=== PATIENT | male | born 1950 | race Caucasian/White ===

== ENCOUNTER 2023-03-07 12:58 | Outpatient (CLI) | payer BC, MEDICARE | END 2023-03-07 12:59 | disposition home or self-care (01) | LOC: SCSRAD 12:58 | PROVIDERS: ATTEND Family Medicine | DX: M54.50 Low back pain, unspecified (principal); M47.816 Spondylosis without myelopathy or radiculopathy, lumbar region | CPT/HCPCS: 72100 ==

== ENCOUNTER 2023-04-28 14:56 | Inpatient (IN) | payer BC, MEDICARE ==
[~2023-04-28 14:56] MED LIST: Iopamidol-370 76% 500 ML MDV (1 ML CHARGE) ONE
[2023-04-28] MEDS ORDERED: Adenosine 6 MG/2 ML VIAL ONE ×2 (15:16→15:24)
[2023-04-28] MEDS ORDERED: Esmolol 2,500 MG/250 ML 250 ML ONE (15:28)
[2023-04-28 15:32] LABS: #Monocytes 0.4 thou/uL (0.11-0.59); %Basophils 0.4 % (0.0-1.0); %Eosinophils 0.7 % (0.0-10.0); %Lymphocytes 12.6 % (21.0-51.0); %Monocytes 14.4 % (0.0-10.0); %Neutrophils 71.2 % (42.0-75.0); Hemoglobin 8.8 g/dL (14.0-18.0); Mean Corpuscular HGB CONC 34.1 g/dL (32.0-36.0); Mean Corpuscular Hemoglobin 34.5 pg (27.0-31.0); Mean Corpuscular Volume 101.2 fl (78.0-98.0); Mean Platelet Volume 10.7 fL (7.4-10.4); Platelet Count 156 10x3/uL (130-400); RBC Distribution Width 14.3 % (11.5-14.5); Red Blood Cell (RBC) Count 2.55 mill/uL (4.70-6.10); White Blood Cell (WBC) Count 2.8 10x3/uL (4.8-10.8)
[2023-04-28 15:54] LABS: ALT (SGPT) 10 U/L (8-55); AST (SGOT) 19 U/L (5-34); Albumin 2.6 g/dL (3.4-4.8); Alkaline Phosphatase 58 U/L (40-110); Anion Gap 10 mmol/L (10-20); BUN (Urea Nitrogen) 24 mg/dL (8.4-25.7); Bilirubin, Total 0.4 mg/dL (0.2-1.2); Calc. Creatinine Clearance 0 mL/min (70-130); Calcium 10.8 mg/dL (7.8-10.44); Carbon Dioxide 21 mmol/L (23-31); Chloride 107 mmol/L (98-107); Estimated GFR 53; Globulin 9.1 g/dL (2.4-3.5); Glucose 107 mg/dL (83-110); Lipase 27 U/L (8-78); Potassium 3.2 mmol/L (3.5-5.1); Protein, Total 11.7 g/dL (5.8-8.1); Sodium 135 mmol/L (136-145)
[2023-04-28] MEDS ORDERED: fentaNYL 50 mcg/mL 1 mL Vial ONE (16:05)
[2023-04-28] MEDS ORDERED: Amiodarone 150 MG/3 ML VIAL ONE (17:03)
[2023-04-28] MEDS ORDERED: Magnesium 2 GM/50 ML BAG (IN WATER) ONE (17:15)
[2023-04-28] MEDS ORDERED: Potassium Chloride 20 MEQ TAB ONE (17:15)
[2023-04-28] MEDS ORDERED: Magnesium 2 GM/50 ML(in water) 2 GM in Premix Bag 1 BAG IVPB SCH ×2 (18:15→20:15)
[2023-04-28] MEDS ORDERED: Electrolyte Replacement Protocol 1 EACH FS ONE (20:03)
[2023-04-28 20:13] LABS: Troponin I 0.011 ng/mL (< 0.028)
[2023-04-28] MEDS ORDERED: Electrolyte Replacement Protocol FS PRN (20:15)
[2023-04-28] MEDS: Famotidine 20 MG TAB PO SCH (20:32)
[2023-04-28] MEDS: Potassium Chloride 20 MEQ in Premix Bag 1 BAG IVPB SCH ×2 (21:54→23:15)
[2023-04-28 22:24] LABS: Bacteria/HPF None Seen HPF (None Seen); Bilirubin Negative (Negative); Blood, Urine Negative (Negative); Clarity Clear (Clear); Glucose, Urine (Dipstick) Normal (Negative); Ketone, Urine Negative (Negative); Leukocyte Negative Leu/uL (Negative); Nitrite Negative (Negative); Protein, Urine (Dipstick) 70 mg/dL (Neg-Trace); RBC/HPF 0-3 HPF (0-3); Specific Gravity, Urine 1.038 (1.002-1.036); Squamous Epithelial None Seen HPF (0-3); Urobilinogen Normal mg/dL (Less than 2); WBC/HPF 0-3 HPF (0-3); pH, Urine 5.5 (5.0-9.0)
[2023-04-28] MEDS: Acetaminophen 325 MG TAB PO PRN (23:15)
[2023-04-28 23:27] LABS: Creatinine, Urine 82.73 mg/dL (63-166)
[2023-04-29] MEDS: Amiodarone 450 MG, Admixture Fee 1 EACH in Dextrose 5% in Water 250 ML IVPB SCH ×2 (02:38→16:49)
[2023-04-29 04:52] LABS: ALT (SGPT) 10 U/L (8-55); AST (SGOT) 20 U/L (5-34); Albumin 2.4 g/dL (3.4-4.8); Alkaline Phosphatase 51 U/L (40-110); Anion Gap 10 mmol/L (10-20); BUN (Urea Nitrogen) 25 mg/dL (8.4-25.7); Bilirubin, Total 0.3 mg/dL (0.2-1.2); Calc. Creatinine Clearance 67 mL/min (70-130); Calcium 10.2 mg/dL (7.8-10.44); Carbon Dioxide 18 mmol/L (23-31); Chloride 110 mmol/L (98-107); Estimated GFR 57; Globulin 8.4 g/dL (2.4-3.5); Glucose 90 mg/dL (83-110); Iron 58 ug/dL (65-175); Iron Binding Capacity, Total 195 mcg/dL (261-462); Potassium 3.7 mmol/L (3.5-5.1); Protein, Total 10.8 g/dL (5.8-8.1); Sodium 134 mmol/L (136-145)
[2023-04-29 04:53] LABS: Iron 55 ug/dL (65-175); Iron Binding Capacity, Total 203 mcg/dL (261-462); Magnesium 1.8 mg/dL (1.6-2.6)
[2023-04-29] MEDS: Furosemide 20 MG/2 ML VIAL SLOW IVP SCH ×2 (06:05→14:40)
[2023-04-29] MEDS ORDERED: Magnesium 2 GM/50 ML(in water) 2 GM in Premix Bag 1 BAG IVPB SCH (08:00)
[2023-04-29] MEDS: Famotidine 20 MG TAB PO SCH ×2 (08:07→21:58)
[2023-04-29] MEDS: Potassium Chloride 20 MEQ TAB PO SCH ×2 (08:07→16:49)
[2023-04-29] MEDS ORDERED: Amlodipine 10 MG TAB PO SCH (09:00)
[2023-04-29 09:50] LABS: Magnesium 1.9 mg/dL (1.6-2.6)
[2023-04-29] MEDS ORDERED: Furosemide 20 MG/2 ML VIAL SLOW IVP SCH (10:00)
[2023-04-29] MEDS ORDERED: Empagliflozin 10 MG TAB PO SCH (10:00)
[2023-04-29] MEDS: Calcium Carbonate 600 MG TAB PO SCH ×2 (10:27→21:58)
[2023-04-29] MEDS: Acetaminophen 325 MG TAB PO PRN ×2 (18:05→22:07)
[2023-04-29] MEDS ORDERED: Non-Formulary Item 1 EACH (Mirabegron [Myrbetriq] 50 MG Tab.Er.24h) PO SCH (21:00)
[2023-04-29] MEDS ORDERED: Tamsulosin HCl 0.4 MG CAP PO SCH (21:00)
[2023-04-29] MEDS: Melatonin 3 MG TAB PO PRN (21:58)
[2023-04-29] MEDS: Tamsulosin HCl 0.4 MG CAP PO SCH (21:58)
[2023-04-30] MEDS ORDERED: Morphine 2 MG/ML VIAL SLOW IVP SCH (03:45)
[2023-04-30] MEDS: Simethicone Chewable 80 MG TAB PO PRN (03:45)
[2023-04-30] MEDS ORDERED: Furosemide 20 MG/2 ML VIAL SLOW IVP SCH ×2 (03:45→10:00)
[2023-04-30] MEDS: Furosemide 20 MG/2 ML VIAL SLOW IVP SCH ×2 (05:02→14:51)
[2023-04-30 06:59] LABS: #Monocytes 0.4 thou/uL (0.11-0.59); #Neutrophils 2.2 thou/uL (1.40-6.50); %Basophils 0.3 % (0.0-1.0); %Eosinophils 0.7 % (0.0-10.0); %Lymphocytes 10.8 % (21.0-51.0); %Monocytes 12.6 % (0.0-10.0); %Neutrophils 75.6 % (42.0-75.0); Hemoglobin 8.6 g/dL (14.0-18.0); Mean Corpuscular HGB CONC 32.8 g/dL (32.0-36.0); Mean Corpuscular Hemoglobin 34.8 pg (27.0-31.0); Mean Corpuscular Volume 106.1 fl (78.0-98.0); Mean Platelet Volume 10.6 fL (7.4-10.4); Platelet Count 135 10x3/uL (130-400); RBC Distribution Width 14.6 % (11.5-14.5); Red Blood Cell (RBC) Count 2.47 mill/uL (4.70-6.10); White Blood Cell (WBC) Count 2.9 10x3/uL (4.8-10.8)
[2023-04-30 07:26] LABS: Anion Gap 10 mmol/L (10-20); BUN (Urea Nitrogen) 25 mg/dL (8.4-25.7); Calc. Creatinine Clearance 61 mL/min (70-130); Calcium 10.4 mg/dL (7.8-10.44); Carbon Dioxide 20 mmol/L (23-31); Chloride 110 mmol/L (98-107); Estimated GFR 52; Glucose 100 mg/dL (83-110); Potassium 3.7 mmol/L (3.5-5.1); Sodium 136 mmol/L (136-145)
[2023-04-30] MEDS: Empagliflozin 10 MG TAB PO SCH (08:50)
[2023-04-30] MEDS: Calcium Carbonate 600 MG TAB PO SCH ×2 (08:50→20:01)
[2023-04-30] MEDS: Famotidine 20 MG TAB PO SCH ×2 (08:50→20:02)
[2023-04-30] MEDS: Potassium Chloride 20 MEQ TAB PO SCH ×2 (08:50→17:17)
[2023-04-30] MEDS: Amiodarone 450 MG, Admixture Fee 1 EACH in Dextrose 5% in Water 250 ML IVPB SCH ×2 (09:36→23:18)
[2023-04-30] MEDS ORDERED: Potassium Chloride 20 MEQ TAB PO SCH (12:00)
[2023-04-30] MEDS: Docusate 100 MG CAP PO PRN (17:17)
[2023-04-30] MEDS ORDERED: Furosemide 40 MG/4 ML VIAL SLOW IVP SCH (20:00)
[2023-04-30] MEDS: Tamsulosin HCl 0.4 MG CAP PO SCH (20:02)
[2023-05-01] MEDS: Furosemide 20 MG/2 ML VIAL SLOW IVP SCH ×2 (05:55→13:08)
[2023-05-01 07:43] LABS: Anion Gap 10 mmol/L (10-20); BUN (Urea Nitrogen) 18 mg/dL (8.4-25.7); Calc. Creatinine Clearance 69 mL/min (70-130); Calcium 10.5 mg/dL (7.8-10.44); Carbon Dioxide 23 mmol/L (23-31); Chloride 107 mmol/L (98-107); Estimated GFR 62; Glucose 79 mg/dL (83-110); Potassium 3.5 mmol/L (3.5-5.1); Sodium 136 mmol/L (136-145)
[2023-05-01] MEDS ORDERED: Potassium Chloride 20 MEQ TAB PO SCH (08:00)
[2023-05-01] MEDS: Potassium Chloride 20 MEQ TAB PO SCH ×2 (08:30→17:22)
[2023-05-01] MEDS ORDERED: Digoxin 0.5 MG/2 ML AMP SLOW IVP SCH ×2 (08:30→13:00)
[2023-05-01] MEDS: Calcium Carbonate 600 MG TAB PO SCH ×2 (08:30→21:07)
[2023-05-01] MEDS: Famotidine 20 MG TAB PO SCH ×2 (08:31→21:07)
[2023-05-01] MEDS: Empagliflozin 10 MG TAB PO SCH (08:31)
[2023-05-01] MEDS: Docusate 100 MG CAP PO PRN (11:02)
[2023-05-01] MEDS ORDERED: Metoprolol Tartrate 5 MG/5 ML VIAL ONE (11:36)
[2023-05-01] MEDS ORDERED: Metoprolol Tartrate 5 MG/5 ML VIAL IVP SCH (11:45)
[2023-05-01] MEDS: Amiodarone 450 MG, Admixture Fee 1 EACH in Dextrose 5% in Water 250 ML IVPB SCH (13:08)
[2023-05-01] MEDS ORDERED: dilTIAZem 25 MG/5 ML VIAL SLOW IVP SCH (14:15)
[2023-05-01] MEDS: dilTIAZem 125 MG in Sodium Chloride 0.9% 100 ML IVPB SCH (14:24)
[2023-05-01] MEDS: Tamsulosin HCl 0.4 MG CAP PO SCH (21:07)
[2023-05-02] MEDS: dilTIAZem 125 MG in Sodium Chloride 0.9% 100 ML IVPB SCH ×3 (01:01→22:52)
[2023-05-02 04:29] LABS: Anion Gap 11 mmol/L (10-20); BUN (Urea Nitrogen) 17 mg/dL (8.4-25.7); Calc. Creatinine Clearance 73 mL/min (70-130); Calcium 11.2 mg/dL (7.8-10.44); Carbon Dioxide 23 mmol/L (23-31); Chloride 107 mmol/L (98-107); Estimated GFR 66; Glucose 99 mg/dL (83-110); Potassium 3.5 mmol/L (3.5-5.1); Sodium 137 mmol/L (136-145)
[2023-05-02] MEDS: Furosemide 20 MG/2 ML VIAL SLOW IVP SCH ×2 (05:18→13:27)
[2023-05-02] MEDS: Amiodarone 450 MG, Admixture Fee 1 EACH in Dextrose 5% in Water 250 ML IVPB SCH ×2 (05:18→15:54)
[2023-05-02] MEDS: Empagliflozin 10 MG TAB PO SCH (07:39)
[2023-05-02] MEDS: Famotidine 20 MG TAB PO SCH ×2 (07:39→21:16)
[2023-05-02] MEDS: Potassium Chloride 20 MEQ TAB PO SCH ×2 (07:39→18:14)
[2023-05-02] MEDS: Calcium Carbonate 600 MG TAB PO SCH ×2 (07:41→21:15)
[2023-05-02] MEDS: Spironolactone 25 MG TAB PO SCH (09:38)
[2023-05-02] MEDS ORDERED: Potassium Chloride 20 MEQ TAB PO SCH (12:00)
[2023-05-02] MEDS: Tamsulosin HCl 0.4 MG CAP PO SCH (21:15)
[2023-05-03 04:38] LABS: Anion Gap 10 mmol/L (10-20); BUN (Urea Nitrogen) 21 mg/dL (8.4-25.7); Calc. Creatinine Clearance 62 mL/min (70-130); Calcium 11.6 mg/dL (7.8-10.44); Carbon Dioxide 22 mmol/L (23-31); Chloride 108 mmol/L (98-107); Estimated GFR 54; Glucose 97 mg/dL (83-110); Potassium 3.8 mmol/L (3.5-5.1); Sodium 136 mmol/L (136-145)
[2023-05-03] MEDS: Furosemide 20 MG/2 ML VIAL SLOW IVP SCH ×2 (05:39→13:45)
[2023-05-03] MEDS: Famotidine 20 MG TAB PO SCH ×2 (08:26→20:15)
[2023-05-03] MEDS: Calcium Carbonate 600 MG TAB PO SCH ×2 (08:26→20:15)
[2023-05-03] MEDS: Spironolactone 25 MG TAB PO SCH (08:26)
[2023-05-03] MEDS: dilTIAZem 125 MG in Sodium Chloride 0.9% 100 ML IVPB SCH ×2 (08:26→23:04)
[2023-05-03] MEDS: Potassium Chloride 20 MEQ TAB PO SCH ×2 (08:26→16:41)
[2023-05-03] MEDS: Empagliflozin 10 MG TAB PO SCH (10:52)
[2023-05-03] MEDS: Amiodarone 450 MG, Admixture Fee 1 EACH in Dextrose 5% in Water 250 ML IVPB SCH (12:20)
[2023-05-03] MEDS: Tamsulosin HCl 0.4 MG CAP PO SCH (20:15)
[2023-05-03] MEDS: Simethicone Chewable 80 MG TAB PO PRN (23:07)
[2023-05-04] MEDS: Amiodarone 450 MG, Admixture Fee 1 EACH in Dextrose 5% in Water 250 ML IVPB SCH ×2 (04:11→22:06)
[2023-05-04 04:48] LABS: Anion Gap 11 mmol/L (10-20); BUN (Urea Nitrogen) 21 mg/dL (8.4-25.7); Calc. Creatinine Clearance 57 mL/min (70-130); Carbon Dioxide 22 mmol/L (23-31); Chloride 106 mmol/L (98-107); Estimated GFR 49; Glucose 96 mg/dL (83-110); Potassium 3.6 mmol/L (3.5-5.1); Sodium 135 mmol/L (136-145)
[2023-05-04] MEDS: Furosemide 20 MG/2 ML VIAL SLOW IVP SCH (05:50)
[2023-05-04] MEDS: Potassium Chloride 20 MEQ TAB PO SCH ×2 (08:31→17:39)
[2023-05-04] MEDS: Famotidine 20 MG TAB PO SCH ×2 (08:31→22:14)
[2023-05-04] MEDS: Spironolactone 25 MG TAB PO SCH (08:32)
[2023-05-04] MEDS: Empagliflozin 10 MG TAB PO SCH (08:32)
[2023-05-04] MEDS: Calcium Carbonate 600 MG TAB PO SCH ×2 (08:32→22:14)
[2023-05-04] MEDS: dilTIAZem 125 MG in Sodium Chloride 0.9% 100 ML IVPB SCH (13:04)
[2023-05-04] MEDS: Tamsulosin HCl 0.4 MG CAP PO SCH (22:14)
[2023-05-05] MEDS: dilTIAZem 125 MG in Sodium Chloride 0.9% 100 ML IVPB SCH (05:22)
[2023-05-05] MEDS: Furosemide 20 MG/2 ML VIAL SLOW IVP SCH ×2 (05:30→11:03)
[2023-05-05 05:58] LABS: Anion Gap 10 mmol/L (10-20); BUN (Urea Nitrogen) 21 mg/dL (8.4-25.7); Calc. Creatinine Clearance 51 mL/min (70-130); Carbon Dioxide 22 mmol/L (23-31); Chloride 107 mmol/L (98-107); Estimated GFR 46; Glucose 93 mg/dL (83-110); Potassium 3.8 mmol/L (3.5-5.1); Sodium 135 mmol/L (136-145)
[2023-05-05 06:08] LABS: Calcium 13.2 mg/dL (7.8-10.44)
[2023-05-05] MEDS: Famotidine 20 MG TAB PO SCH (09:51)
[2023-05-05] MEDS: Potassium Chloride 20 MEQ TAB PO SCH ×2 (09:51→16:15)
[2023-05-05] MEDS: Empagliflozin 10 MG TAB PO SCH (09:51)
[2023-05-05] MEDS: Spironolactone 25 MG TAB PO SCH ×2 (09:52→11:16)
[2023-05-05] MEDS ORDERED: Folic Acid 1 MG TAB PO SCH (10:45)
[2023-05-05] MEDS ORDERED: Amlodipine 5 MG TAB PO SCH (10:45)
[2023-05-05 13:34] LABS: Anion Gap 10 mmol/L (10-20); BUN (Urea Nitrogen) 24 mg/dL (8.4-25.7); Calc. Creatinine Clearance 44 mL/min (70-130); Carbon Dioxide 23 mmol/L (23-31); Chloride 104 mmol/L (98-107); Estimated GFR 38; Glucose 99 mg/dL (83-110); Potassium 3.7 mmol/L (3.5-5.1); Sodium 133 mmol/L (136-145)
[2023-05-05 13:46] LABS: Calcium 13.4 mg/dL (7.8-10.44)
[2023-05-05] MEDS ORDERED: Sodium Chloride 0.9% 1,000 ML IV SCH (15:30)
[2023-05-05] MEDS ORDERED: Calcitonin,Salmon,Synthetic 400 UNITS/2 ML SC SCH (15:30)
[2023-05-05] MEDS: Amiodarone 200 MG TAB PO SCH ×2 (16:15→20:46)
[2023-05-05] MEDS ORDERED: Zoledronic Acid 4 MG in Sodium Chloride 0.9% 100 ML IVPB SCH (16:15)
[2023-05-05] MEDS: Amiodarone 450 MG, Admixture Fee 1 EACH in Dextrose 5% in Water 250 ML IVPB SCH (17:37)
[2023-05-05] MEDS: Tamsulosin HCl 0.4 MG CAP PO SCH (20:46)
[2023-05-06] MEDS: Furosemide 20 MG/2 ML VIAL SLOW IVP SCH ×2 (05:36→10:28)
[2023-05-06 06:37] LABS: #Monocytes 0.4 thou/uL (0.11-0.59); %Basophils 0.8 % (0.0-1.0); %Eosinophils 0.8 % (0.0-10.0); %Lymphocytes 4.8 % (21.0-51.0); %Monocytes 8.1 % (0.0-10.0); %Neutrophils 83.2 % (42.0-75.0); Hemoglobin 10.7 g/dL (14.0-18.0); Mean Corpuscular HGB CONC 33.1 g/dL (32.0-36.0); Mean Corpuscular Hemoglobin 34.2 pg (27.0-31.0); Mean Corpuscular Volume 103.2 fl (78.0-98.0); Mean Platelet Volume 10.7 fL (7.4-10.4); Platelet Count 175 10x3/uL (130-400); RBC Distribution Width 14.1 % (11.5-14.5); Red Blood Cell (RBC) Count 3.13 mill/uL (4.70-6.10); White Blood Cell (WBC) Count 4.8 10x3/uL (4.8-10.8)
[2023-05-06 07:01] LABS: Anion Gap 11 mmol/L (10-20); BUN (Urea Nitrogen) 26 mg/dL (8.4-25.7); Calc. Creatinine Clearance 46 mL/min (70-130); Calcium 12.8 mg/dL (7.8-10.44); Carbon Dioxide 20 mmol/L (23-31); Chloride 106 mmol/L (98-107); Estimated GFR 41; Glucose 88 mg/dL (83-110); Potassium 3.7 mmol/L (3.5-5.1); Sodium 133 mmol/L (136-145)
[2023-05-06] MEDS: Spironolactone 25 MG TAB PO SCH (08:02)
[2023-05-06] MEDS: Amlodipine 5 MG TAB PO SCH (08:02)
[2023-05-06] MEDS: Folic Acid 1 MG TAB PO SCH (08:02)
[2023-05-06] MEDS: Amiodarone 200 MG TAB PO SCH ×3 (08:02→20:17)
[2023-05-06] MEDS: Empagliflozin 10 MG TAB PO SCH (08:02)
[2023-05-06] MEDS: Potassium Chloride 20 MEQ TAB PO SCH ×2 (08:02→15:11)
[2023-05-06] MEDS: Famotidine 20 MG TAB PO SCH (08:03)
[2023-05-06] MEDS ORDERED: Sodium Chloride 0.9% 1,000 ML IV SCH (09:45)
[2023-05-06] MEDS ORDERED: Furosemide 40 MG/4 ML VIAL SLOW IVP SCH (10:15)
[2023-05-06] MEDS ORDERED: dilTIAZem 25 MG/5 ML VIAL SLOW IVP SCH (11:00)
[2023-05-06] MEDS ORDERED: dilTIAZem 125 MG in Sodium Chloride 0.9% 100 ML IVPB SCH ×3 (11:00→17:47)
[2023-05-06 11:14] LABS: Magnesium 1.5 mg/dL (1.6-2.6)
[2023-05-06] MEDS ORDERED: Magnesium 2 GM/50 ML(in water) 2 GM in Premix Bag 1 BAG IVPB SCH (11:30)
[2023-05-06] MEDS ORDERED: Potassium Chloride 20 MEQ TAB PO SCH (12:00)
[2023-05-06] MEDS ORDERED: Magnesium Sulfate In Water 4 GM in Premix Bag 1 BAG IVPB SCH (13:00)
[2023-05-06] MEDS: Tamsulosin HCl 0.4 MG CAP PO SCH (20:16)
[2023-05-07] MEDS: Amiodarone 450 MG, Admixture Fee 1 EACH in Dextrose 5% in Water 250 ML IVPB SCH ×2 (04:39→20:42)
[2023-05-07 05:57] LABS: Anion Gap 11 mmol/L (10-20); BUN (Urea Nitrogen) 37 mg/dL (8.4-25.7); Calc. Creatinine Clearance 39 mL/min (70-130); Carbon Dioxide 18 mmol/L (23-31); Chloride 106 mmol/L (98-107); Estimated GFR 33; Glucose 104 mg/dL (83-110); Magnesium 2.8 mg/dL (1.6-2.6); Potassium 3.5 mmol/L (3.5-5.1); Sodium 131 mmol/L (136-145)
[2023-05-07] MEDS: Furosemide 20 MG/2 ML VIAL SLOW IVP SCH (06:17)
[2023-05-07] MEDS: Folic Acid 1 MG TAB PO SCH (09:11)
[2023-05-07] MEDS: Amiodarone 200 MG TAB PO SCH ×3 (09:11→20:41)
[2023-05-07] MEDS: Potassium Chloride 20 MEQ TAB PO SCH ×2 (09:11→17:27)
[2023-05-07] MEDS: Spironolactone 25 MG TAB PO SCH (09:13)
[2023-05-07] MEDS: Famotidine 20 MG TAB PO SCH (09:13)
[2023-05-07] MEDS: Amlodipine 5 MG TAB PO SCH (09:13)
[2023-05-07] MEDS: Empagliflozin 10 MG TAB PO SCH (10:07)
[2023-05-07 18:45] LABS: SARS-CoV-2 NAA Rapid Test Not Detected (NotDetected)
[2023-05-07] MEDS: Tamsulosin HCl 0.4 MG CAP PO SCH (20:41)
[2023-05-07] MEDS: dilTIAZem 125 MG in Sodium Chloride 0.9% 100 ML IVPB SCH (23:48)
[2023-05-08 05:38] LABS: Anion Gap 8 mmol/L (10-20); BUN (Urea Nitrogen) 48 mg/dL (8.4-25.7); Calc. Creatinine Clearance 37 mL/min (70-130); Calcium 8.9 mg/dL (7.8-10.44); Carbon Dioxide 21 mmol/L (23-31); Chloride 110 mmol/L (98-107); Estimated GFR 31; Glucose 81 mg/dL (83-110); Potassium 3.7 mmol/L (3.5-5.1); Sodium 135 mmol/L (136-145)
[2023-05-08] MEDS: Famotidine 20 MG TAB PO SCH (08:07)
[2023-05-08] MEDS: Folic Acid 1 MG TAB PO SCH (08:08)
[2023-05-08] MEDS: Amiodarone 200 MG TAB PO SCH ×3 (08:08→20:52)
[2023-05-08] MEDS: Potassium Chloride 20 MEQ TAB PO SCH ×2 (08:10→17:56)
[2023-05-08] MEDS: Amlodipine 5 MG TAB PO SCH (08:10)
[2023-05-08] MEDS: Albumin 25% 25 GM/100 ML BOT IVPB SCH ×3 (08:20→20:52)
[2023-05-08] MEDS ORDERED: Apixaban 5 MG TAB PO SCH ×2 (09:44→10:00)
[2023-05-08] MEDS: Amiodarone 450 MG, Admixture Fee 1 EACH in Dextrose 5% in Water 250 ML IVPB SCH (11:05)
[2023-05-08] MEDS: Apixaban 5 MG TAB PO SCH (20:53)
[2023-05-08] MEDS: Tamsulosin HCl 0.4 MG CAP PO SCH (20:53)
[2023-05-09] MEDS: Albumin 25% 25 GM/100 ML BOT IVPB SCH (02:06)
[2023-05-09] MEDS: Melatonin 3 MG TAB PO PRN (02:06)
[2023-05-09] MEDS: Acetaminophen 325 MG TAB PO PRN (02:17)
[2023-05-09] MEDS: Amiodarone 450 MG, Admixture Fee 1 EACH in Dextrose 5% in Water 250 ML IVPB SCH (02:18)
[2023-05-09] MEDS: dilTIAZem 125 MG in Sodium Chloride 0.9% 100 ML IVPB SCH (02:18)
[2023-05-09 05:58] LABS: Anion Gap 10 mmol/L (10-20); BUN (Urea Nitrogen) 40 mg/dL (8.4-25.7); Calc. Creatinine Clearance 40 mL/min (70-130); Calcium 8.4 mg/dL (7.8-10.44); Carbon Dioxide 19 mmol/L (23-31); Chloride 111 mmol/L (98-107); Estimated GFR 34; Glucose 81 mg/dL (83-110); Magnesium 2.1 mg/dL (1.6-2.6); Potassium 3.6 mmol/L (3.5-5.1); Sodium 136 mmol/L (136-145)
[2023-05-09] MEDS: Potassium Chloride 20 MEQ TAB PO SCH ×2 (09:03→17:01)
[2023-05-09] MEDS: Amiodarone 200 MG TAB PO SCH ×3 (09:04→21:00)
[2023-05-09] MEDS: Amlodipine 5 MG TAB PO SCH (09:04)
[2023-05-09] MEDS: Folic Acid 1 MG TAB PO SCH (09:04)
[2023-05-09] MEDS: Famotidine 20 MG TAB PO SCH (09:04)
[2023-05-09] MEDS: Apixaban 5 MG TAB PO SCH (09:14)
[2023-05-09] MEDS ORDERED: Furosemide 40 MG/4 ML VIAL SLOW IVP SCH (12:00)
[2023-05-09] MEDS ORDERED: Potassium Chloride 20 MEQ TAB PO SCH (12:00)
[2023-05-09] MEDS: Simethicone Chewable 80 MG TAB PO PRN ×2 (12:05→21:50)
[2023-05-09] MEDS ORDERED: HYDROcodone/Acetaminophen 5/325 mg Tablet PO PRN (13:37)
[2023-05-09] MEDS ORDERED: Morphine 2 MG/ML VIAL SLOW IVP PRN (13:37)
[2023-05-09] MEDS ORDERED: Calcium Carbonate 500 MG ChewTAB PO SCH (13:45)
[2023-05-09 15:57] LABS: Bacteria/HPF None Seen HPF (None Seen); Bilirubin Negative (Negative); Blood, Urine 1+ (Negative); CAUTI Indications for Culture Pelvic or flank pain; Clarity Clear (Clear); Glucose, Urine (Dipstick) 70 mg/dL (Negative); Ketone, Urine Negative (Negative); Leukocyte Negative Leu/uL (Negative); Nitrite Negative (Negative); Protein, Urine (Dipstick) 50 mg/dL (Neg-Trace); RBC/HPF 0-3 HPF (0-3); Specific Gravity, Urine 1.011 (1.002-1.036); Squamous Epithelial 0-3 HPF (0-3); Urobilinogen Normal mg/dL (Less than 2); WBC/HPF 0-3 HPF (0-3); pH, Urine 5.5 (5.0-9.0)
[2023-05-09 15:58] LABS: Urine Culture Reflex No No
[2023-05-09] MEDS ORDERED: Bisacodyl 10 MG SUPP PR SCH ×2 (16:15→18:45)
[2023-05-09] MEDS: Lactated Ringer's 1,000 ML IV SCH (17:01)
[2023-05-09] MEDS ORDERED: Temazepam 15 MG CAP PO PRN (18:23)
[2023-05-09] MEDS: Tamsulosin HCl 0.4 MG CAP PO SCH (21:00)
[2023-05-09] MEDS ORDERED: Ondansetron ODT 4 MG TAB PO PRN (23:51)
[2023-05-10] MEDS: Ondansetron PF 4 MG/2 ML Vial IVP PRN (00:02)
[2023-05-10] MEDS: Lactated Ringer's 1,000 ML IV SCH ×2 (05:10→20:50)
[2023-05-10 05:51] LABS: Anion Gap 11 mmol/L (10-20); BUN (Urea Nitrogen) 32 mg/dL (8.4-25.7); Calc. Creatinine Clearance 36 mL/min (70-130); Calcium 8.6 mg/dL (7.8-10.44); Carbon Dioxide 18 mmol/L (23-31); Chloride 110 mmol/L (98-107); Estimated GFR 33; Glucose 126 mg/dL (83-110); Potassium 4.3 mmol/L (3.5-5.1); Sodium 135 mmol/L (136-145)
[2023-05-10] MEDS ORDERED: dilTIAZem 125 MG in Sodium Chloride 0.9% 100 ML IVPB SCH ×2 (08:45→10:59)
[2023-05-10] MEDS ORDERED: dilTIAZem 25 MG/5 ML VIAL SLOW IVP SCH (08:45)
[2023-05-10 09:40] LABS: Hemoglobin 9.2 g/dL (14.0-18.0); Mean Corpuscular Hemoglobin 34.2 pg (27.0-31.0); Mean Corpuscular Volume 103.7 fl (78.0-98.0); Mean Platelet Volume 10.7 fL (7.4-10.4); Platelet Count 211 10x3/uL (130-400); RBC Distribution Width 14.6 % (11.5-14.5); Red Blood Cell (RBC) Count 2.69 mill/uL (4.70-6.10); White Blood Cell (WBC) Count 5.7 10x3/uL (4.8-10.8)
[2023-05-10 09:47] LABS: Delete Auto Diff?? YES; Manual Diff?? YES
[2023-05-10] MEDS: Potassium Chloride 20 MEQ TAB PO SCH ×2 (10:11→17:13)
[2023-05-10] MEDS: Folic Acid 1 MG TAB PO SCH (10:12)
[2023-05-10] MEDS ORDERED: Amiodarone 450 MG in Dextrose 5% in Water 250 ML IVPB SCH (11:00)
[2023-05-10 11:04] LABS: Anisocytosis SLIGHT = 6-15 cells HPF (0-5); Band 41 % (5-11); CellaVision Operator ID LAB.GE; Eosinophils 1 % (0-10); Large Platelets 2.8 % (0-5); Macrocytosis SLIGHT = 6-15 cells HPF (0-5); Metamyelocyte 1 % (0-0); Monocytes 7 % (0-10); Neutrophil 46 % (42-75); Platelet Adequacy Comment Platelets Normal; Polychromasia SLIGHT = 2-3 cells HPF (0-2); Reactive Lymphocytes 4 % (0-10); Total Cell Count 109
[2023-05-10] MEDS ORDERED: dilTIAZem 125 MG, Admixture Fee 1 EACH in Sodium Chloride 0.9% 100 ML IVPB SCH (11:15)
[2023-05-10] MEDS ORDERED: Lactated Ringer's 250 ML IV SCH ×2 (11:45→14:00)
[2023-05-10] MEDS: Amiodarone 450 MG, Admixture Fee 1 EACH in Dextrose 5% in Water 250 ML IVPB SCH (12:01)
[2023-05-10] MEDS: Tamsulosin HCl 0.4 MG CAP PO SCH (20:50)
[2023-05-11] MEDS ORDERED: Sodium Chloride 0.9% 500 ML IV SCH ×5 (01:45→22:15)
[2023-05-11] MEDS ORDERED: Sodium Chloride 0.9% 250 ML IV SCH (03:15)
[2023-05-11 04:28] LABS: #Monocytes 0.7 thou/uL (0.11-0.59); #Neutrophils 4.2 thou/uL (1.40-6.50); %Basophils 0.2 % (0.0-1.0); %Lymphocytes 8.6 % (21.0-51.0); %Monocytes 12.6 % (0.0-10.0); %Neutrophils 77.3 % (42.0-75.0); Hemoglobin 9.8 g/dL (14.0-18.0); Mean Corpuscular Hemoglobin 34.5 pg (27.0-31.0); Mean Corpuscular Volume 101.4 fl (78.0-98.0); Platelet Count 208 10x3/uL (130-400); RBC Distribution Width 14.5 % (11.5-14.5); Red Blood Cell (RBC) Count 2.84 mill/uL (4.70-6.10); White Blood Cell (WBC) Count 5.5 10x3/uL (4.8-10.8)
[2023-05-11 05:08] LABS: Anion Gap 14 mmol/L (10-20); BUN (Urea Nitrogen) 48 mg/dL (8.4-25.7); Calc. Creatinine Clearance 23 mL/min (70-130); Calcium 7.8 mg/dL (7.8-10.44); Carbon Dioxide 24 mmol/L (23-31); Chloride 103 mmol/L (98-107); Estimated GFR 19; Glucose 118 mg/dL (83-110); Magnesium 1.8 mg/dL (1.6-2.6); Potassium 3.3 mmol/L (3.5-5.1); Sodium 138 mmol/L (136-145)
[2023-05-11] MEDS ORDERED: Magnesium 2 GM/50 ML(in water) 2 GM in Premix Bag 1 BAG IVPB SCH (08:00)
[2023-05-11] MEDS ORDERED: Potassium Chloride 20 MEQ in Premix Bag 1 BAG IVPB SCH (08:00)
[2023-05-11] MEDS: Folic Acid 1 MG TAB PO SCH (09:04)
[2023-05-11] MEDS: Potassium Chloride 20 MEQ TAB PO SCH ×2 (09:04→16:13)
[2023-05-11] MEDS ORDERED: MD-Gastroview 120 ML BOT ONE (10:49)
[2023-05-11] MEDS ORDERED: Pantoprazole 40 MG VIAL IVP SCH ×2 (13:00→21:00)
[2023-05-11] MEDS: Lactated Ringer's 1,000 ML IV SCH (13:43)
[2023-05-11] MEDS: Sodium Chloride 0.9% 1,000 ML IV SCH (13:44)
[2023-05-11] MEDS ORDERED: dilTIAZem 125 MG in Sodium Chloride 0.9% 100 ML IVPB SCH (16:15)
[2023-05-11] MEDS ORDERED: dilTIAZem 125 MG, Admixture Fee 1 EACH in Sodium Chloride 0.9% 100 ML IVPB SCH (16:30)
[2023-05-11] MEDS: Ondansetron PF 4 MG/2 ML Vial IVP PRN (20:50)
[2023-05-11] MEDS: Pantoprazole 40 MG VIAL IVP SCH (20:55)
[2023-05-11] MEDS: Amiodarone 450 MG, Admixture Fee 1 EACH in Dextrose 5% in Water 250 ML IVPB SCH (20:58)
[2023-05-11] MEDS: Tamsulosin HCl 0.4 MG CAP PO SCH ×2 (21:04→21:26)
[2023-05-11] MEDS ORDERED: Digoxin 0.5 MG/2 ML AMP SLOW IVP SCH ×2 (22:30→22:45)
[2023-05-11] MEDS ORDERED: Sodium Chloride 0.9% 300 ML IV SCH (22:45)
[2023-05-12] MEDS: Sodium Chloride 0.9% 1,000 ML IV SCH (03:35)
[2023-05-12] MEDS ORDERED: Phenol 118 ML BOT PO PRN (03:49)
[2023-05-12] MEDS ORDERED: Phenylephrine 40 MG in Sodium Chloride 0.9% 250 ML 250 ML IVPB SCH (04:30)
[2023-05-12 04:37] LABS: #Neutrophils 7.2 thou/uL (1.40-6.50); %Basophils 0.1 % (0.0-1.0); %Lymphocytes 5.8 % (21.0-51.0); %Monocytes 11.2 % (0.0-10.0); %Neutrophils 82.4 % (42.0-75.0); Hemoglobin 9.6 g/dL (14.0-18.0); Mean Corpuscular HGB CONC 33.6 g/dL (32.0-36.0); Mean Corpuscular Hemoglobin 33.6 pg (27.0-31.0); Platelet Count 237 10x3/uL (130-400); RBC Distribution Width 14.4 % (11.5-14.5); Red Blood Cell (RBC) Count 2.86 mill/uL (4.70-6.10); White Blood Cell (WBC) Count 8.8 10x3/uL (4.8-10.8)
[2023-05-12 04:53] LABS: Digoxin 0.76 ng/mL (0.8-2.0)
[2023-05-12 05:24] LABS: ALT (SGPT) 16 U/L (8-55); AST (SGOT) 28 U/L (5-34); Albumin 3.2 g/dL (3.4-4.8); Alkaline Phosphatase 61 U/L (40-110); Anion Gap 19 mmol/L (10-20); BUN (Urea Nitrogen) 70 mg/dL (8.4-25.7); Bilirubin, Total 0.6 mg/dL (0.2-1.2); Calc. Creatinine Clearance 13 mL/min (70-130); Calcium 6.9 mg/dL (7.8-10.44); Carbon Dioxide 27 mmol/L (23-31); Chloride 94 mmol/L (98-107); Estimated GFR 10; Globulin 8.8 g/dL (2.4-3.5); Glucose 128 mg/dL (83-110); Magnesium 1.9 mg/dL (1.6-2.6); Phosphorus 5.2 mg/dL (2.3-4.7); Potassium 3.3 mmol/L (3.5-5.1); Sodium 137 mmol/L (136-145)
[2023-05-12] MEDS: Phenylephrine 40 MG/NS 250 ML 40 MG in Premix Bag 1 BAG IVPB SCH ×2 (05:45→17:55)
[2023-05-12] MEDS ORDERED: Digoxin 0.5 MG/2 ML AMP SLOW IVP SCH ×2 (05:45→06:00)
[2023-05-12] MEDS ORDERED: Magnesium 2 GM/50 ML(in water) 2 GM in Premix Bag 1 BAG IVPB SCH (06:00)
[2023-05-12] MEDS: Folic Acid 1 MG TAB PO SCH (08:39)
[2023-05-12] MEDS: Pantoprazole 40 MG VIAL IVP SCH ×2 (08:39→19:52)
[2023-05-12] MEDS: Potassium Chloride 20 MEQ TAB PO SCH (08:39)
[2023-05-12] MEDS ORDERED: Lactated Ringer's 500 ML IV SCH (09:00)
[2023-05-12] MEDS: Amiodarone 450 MG, Admixture Fee 1 EACH in Dextrose 5% in Water 250 ML IVPB SCH (10:52)
[2023-05-12] MEDS ORDERED: Sodium Chloride 0.9% 1,000 ML IV SCH (11:45)
[2023-05-12] MEDS ORDERED: Potassium Chloride 40 MEQ in Premix Bag 1 BAG IVPB SCH (11:45)
[2023-05-12] MEDS: Sodium Chloride 0.45% 1,000 ML IV SCH ×2 (12:08→17:55)
[2023-05-12] MEDS: Potassium Chloride 20 MEQ in Premix Bag 1 BAG IVPB SCH ×2 (12:23→15:30)
[2023-05-12 14:28] LABS: Creatinine, Urine 195.99 mg/dL (63-166)
[2023-05-12] MEDS ORDERED: CALCIUM GLUC 1 GM/NS 50 ML 1 GM in Premix Bag 1 BAG IVPB SCH (15:00)
[2023-05-12 17:56] LABS: Anion Gap 16 mmol/L (10-20); BUN (Urea Nitrogen) 79 mg/dL (8.4-25.7); Calc. Creatinine Clearance 12 mL/min (70-130); Carbon Dioxide 25 mmol/L (23-31); Chloride 99 mmol/L (98-107); Estimated GFR 9; Glucose 98 mg/dL (83-110); Sodium 136 mmol/L (136-145)
[2023-05-12 18:14] LABS: Calcium 6.6 mg/dL (7.8-10.44)
[2023-05-12] MEDS: CALCIUM GLUC 1 GM/NS 50 ML 1 GM in Premix Bag 1 BAG IVPB SCH (19:26)
[2023-05-12] MEDS: Tamsulosin HCl 0.4 MG CAP PO SCH (19:55)
[2023-05-13] MEDS: Amiodarone 450 MG, Admixture Fee 1 EACH in Dextrose 5% in Water 250 ML IVPB SCH ×2 (02:11→18:09)
[2023-05-13] MEDS: Sodium Chloride 0.45% 1,000 ML IV SCH ×2 (02:15→09:55)
[2023-05-13 04:27] LABS: Anion Gap 19 mmol/L (10-20); BUN (Urea Nitrogen) 81 mg/dL (8.4-25.7); Calc. Creatinine Clearance 12 mL/min (70-130); Carbon Dioxide 22 mmol/L (23-31); Chloride 97 mmol/L (98-107); Estimated GFR 8; Glucose 71 mg/dL (83-110); Potassium 3.7 mmol/L (3.5-5.1); Sodium 134 mmol/L (136-145)
[2023-05-13 04:30] LABS: Phosphorus 3.9 mg/dL (2.3-4.7)
[2023-05-13 04:31] LABS: Calcium 5.9 mg/dL (7.8-10.44)
[2023-05-13 04:35] LABS: Digoxin 0.99 ng/mL (0.8-2.0)
[2023-05-13] MEDS ORDERED: CALCIUM GLUC 1 GM/NS 50 ML 1 GM in Premix Bag 1 BAG IVPB SCH (05:00)
[2023-05-13] MEDS ORDERED: Calcium Chloride 1 GM/10 ML Abboject SYRINGE ONE (07:32)
[2023-05-13] MEDS: CALCIUM GLUC 1 GM/NS 50 ML 1 GM in Premix Bag 1 BAG IVPB SCH (07:33)
[2023-05-13] MEDS ORDERED: PROPOFOL 200 MG/20 ML VIAL ONE (08:15)
[2023-05-13 08:57] LABS: #Monocytes 0.3 thou/uL (0.11-0.59); #Neutrophils 2.9 thou/uL (1.40-6.50); %Eosinophils 0.3 % (0.0-10.0); %Lymphocytes 5.3 % (21.0-51.0); %Monocytes 9.7 % (0.0-10.0); %Neutrophils 84.1 % (42.0-75.0); Mean Corpuscular Hemoglobin 34.1 pg (27.0-31.0); Mean Corpuscular Volume 100.5 fl (78.0-98.0); Mean Platelet Volume 10.9 fL (7.4-10.4); Platelet Count 171 10x3/uL (130-400); RBC Distribution Width 14.3 % (11.5-14.5); Red Blood Cell (RBC) Count 2.05 mill/uL (4.70-6.10); White Blood Cell (WBC) Count 3.4 10x3/uL (4.8-10.8)
[2023-05-13 09:15] LABS: Lactic Acid 0.7 mmol/L (0.5-2.2)
[2023-05-13] MEDS ORDERED: Potassium Chloride 20 MEQ in Premix Bag 1 BAG IVPB SCH (09:30)
[2023-05-13] MEDS ORDERED: Sodium Chloride 0.9% 500 ML IV SCH (09:45)
[2023-05-13] MEDS: Pantoprazole 40 MG VIAL IVP SCH ×2 (10:06→20:49)
[2023-05-13 10:53] LABS: Band 20 % (5-11); Lymphocytes 5 % (21-51); Monocytes 7 % (0-10); Neutrophil 67 % (42-75); Platelet Adequacy Comment Platelets Normal; Polychromasia SLIGHT = 2-3 cells (100X) (0-2/hpf)
[2023-05-13] MEDS: cefTRIAXone\\ROCEPHIN 1 GM in Sodium Chloride 0.9% 100 ML IVPB SCH (13:36)
[2023-05-13] MEDS: Sodium Chloride 0.9% 1,000 ML IV SCH (15:04)
[2023-05-13] MEDS: Ondansetron PF 4 MG/2 ML Vial IVP PRN (15:24)
[2023-05-13 15:59] LABS: Anion Gap 16 mmol/L (10-20); BUN (Urea Nitrogen) 85 mg/dL (8.4-25.7); Calc. Creatinine Clearance 10 mL/min (70-130); Carbon Dioxide 22 mmol/L (23-31); Chloride 98 mmol/L (98-107); Estimated GFR 6; Glucose 85 mg/dL (83-110); Sodium 132 mmol/L (136-145)
[2023-05-13 16:10] LABS: Calcium 6.3 mg/dL (7.8-10.44)
[2023-05-13] MEDS: Dextrose 50% Abboject 50 ML SYRINGE SLOW IVP PRN (20:26)
[2023-05-13] MEDS: Calcium Carbonate 500 MG ChewTAB PO SCH (20:48)
[2023-05-13] MEDS: Tamsulosin HCl 0.4 MG CAP PO SCH (20:48)
[2023-05-13 21:23] LABS: Hemoglobin 7.6 g/dL (14.0-18.0)
[2023-05-14] MEDS ORDERED: Glucagon 1 MG/ML KIT IM PRN (01:57)
[2023-05-14] MEDS ORDERED: HumaLOG 300 UNITS/3 ML VIAL SC PRN (01:57)
[2023-05-14] MEDS: Sodium Chloride 0.9% 1,000 ML IV SCH ×2 (02:12→20:48)
[2023-05-14 04:03] LABS: Hemoglobin 7.1 g/dL (14.0-18.0); Mean Corpuscular HGB CONC 33.5 g/dL (32.0-36.0); Mean Corpuscular Hemoglobin 33.3 pg (27.0-31.0); Mean Corpuscular Volume 99.5 fl (78.0-98.0); Mean Platelet Volume 10.4 fL (7.4-10.4); Platelet Count 141 10x3/uL (130-400); RBC Distribution Width 15.8 % (11.5-14.5); Red Blood Cell (RBC) Count 2.13 mill/uL (4.70-6.10); White Blood Cell (WBC) Count 2.9 10x3/uL (4.8-10.8)
[2023-05-14 04:04] LABS: Manual Diff?? YES
[2023-05-14 04:05] LABS: Delete Auto Diff?? YES
[2023-05-14 04:23] LABS: Anion Gap 20 mmol/L (10-20); BUN (Urea Nitrogen) 93 mg/dL (8.4-25.7); Calc. Creatinine Clearance 9 mL/min (70-130); Carbon Dioxide 18 mmol/L (23-31); Chloride 98 mmol/L (98-107); Estimated GFR 6; Glucose 75 mg/dL (83-110); Potassium 4.1 mmol/L (3.5-5.1); Sodium 132 mmol/L (136-145)
[2023-05-14 04:25] LABS: Digoxin 0.98 ng/mL (0.8-2.0)
[2023-05-14 04:30] LABS: Calcium 5.5 mg/dL (7.8-10.44)
[2023-05-14 04:34] LABS: Band 38 % (5-11); CellaVision Operator ID LAB.CLH1; Eosinophils 2 % (0-10); Hypochromia SLIGHT = 6-15 cells HPF (0-5); Large Platelets 6.8 % (0-5); Lymphocytes 14 % (21-51); Monocytes 7 % (0-10); Neutrophil 38 % (42-75); Platelet Adequacy Comment Platelets Normal; Polychromasia MODERATE = 3-4 cells HPF (0-2); Total Cell Count 103
[2023-05-14] MEDS ORDERED: Calcium Chloride 13.6 MEQ in Sodium Chloride 0.9% 100 ML IVPB SCH (05:00)
[2023-05-14] MEDS: Heparin 5,000 UNITS/ML VIAL SC SCH ×3 (08:26→20:47)
[2023-05-14] MEDS: Pantoprazole 40 MG VIAL IVP SCH ×2 (08:26→20:48)
[2023-05-14] MEDS: Amiodarone 450 MG, Admixture Fee 1 EACH in Dextrose 5% in Water 250 ML IVPB SCH (08:26)
[2023-05-14] MEDS: Calcium Carbonate 500 MG ChewTAB PO SCH ×3 (08:27→20:47)
[2023-05-14 09:24] LABS: INR-International Normal Ratio 1.5; Prothrombin Time 18.5 sec (12.0-14.7)
[2023-05-14] MEDS ORDERED: GASTROGRAFIN 30 ML BOT ONE (09:32)
[2023-05-14] MEDS ORDERED: Heparin 10,000 UNITS/ 10 ML VIAL ONE (10:59)
[2023-05-14] MEDS: cefTRIAXone\\ROCEPHIN 1 GM in Sodium Chloride 0.9% 100 ML IVPB SCH (13:21)
[2023-05-14 14:29] LABS: Hemoglobin 5.4 g/dL (14.0-18.0)
[2023-05-14 14:32] LABS: Calcium 5.9 mg/dL (7.8-10.44)
[2023-05-14 14:50] LABS: HBSAB Concentration Less than 8.00 mIU/mL; HBSAg Index 0.28 S/CO (0-0.99); Hep B Core Total Ab Non-Reactive (NonReactive); Hep B Core Total Index 0.04 S/CO (0-0.79); Hep B Surf AB Non-Reactive (NonReactive); Hep B Surf Ag Non-Reactive S/CO (NonReactive); Hep C IgG Ab Non-Reactive S/CO (NonReactive); Hep C Index 0.05 S/CO (0-0.79)
[2023-05-14 15:15] LABS: Hemoglobin 8.2 g/dL (14.0-18.0)
[2023-05-14] MEDS: Dextrose 5% in Water 1,000 ML IV PRN (15:51)
[2023-05-14] MEDS: Tamsulosin HCl 0.4 MG CAP PO SCH (20:46)
[2023-05-15] MEDS: Amiodarone 450 MG, Admixture Fee 1 EACH in Dextrose 5% in Water 250 ML IVPB SCH ×2 (00:12→14:33)
[2023-05-15] MEDS: Calcium Carbonate 500 MG ChewTAB PO PRN (02:40)
[2023-05-15] MEDS: Sodium Chloride 0.9% 1,000 ML IV SCH ×3 (04:41→12:37)
[2023-05-15] MEDS: Ondansetron PF 4 MG/2 ML Vial IVP PRN (05:05)
[2023-05-15 07:41] LABS: #Monocytes 0.3 thou/uL (0.11-0.59); %Basophils 0.2 % (0.0-1.0); %Eosinophils 0.2 % (0.0-10.0); %Lymphocytes 4.1 % (21.0-51.0); %Monocytes 7.4 % (0.0-10.0); Hemoglobin 8.1 g/dL (14.0-18.0); Mean Corpuscular HGB CONC 33.8 g/dL (32.0-36.0); Mean Corpuscular Hemoglobin 32.7 pg (27.0-31.0); Mean Corpuscular Volume 96.8 fl (78.0-98.0); Mean Platelet Volume 10.7 fL (7.4-10.4); Platelet Count 145 10x3/uL (130-400); RBC Distribution Width 15.1 % (11.5-14.5); Red Blood Cell (RBC) Count 2.48 mill/uL (4.70-6.10); White Blood Cell (WBC) Count 4.6 10x3/uL (4.8-10.8)
[2023-05-15 08:01] LABS: Anion Gap 18 mmol/L (10-20); BUN (Urea Nitrogen) 68 mg/dL (8.4-25.7); Calc. Creatinine Clearance 11 mL/min (70-130); Carbon Dioxide 17 mmol/L (23-31); Chloride 100 mmol/L (98-107); Estimated GFR 7; Glucose 92 mg/dL (83-110); Phosphorus 4.2 mg/dL (2.3-4.7); Potassium 3.8 mmol/L (3.5-5.1); Sodium 131 mmol/L (136-145)
[2023-05-15 08:06] LABS: Calcium 5.9 mg/dL (7.8-10.44)
[2023-05-15] MEDS: Heparin 5,000 UNITS/ML VIAL SC SCH ×3 (09:27→21:51)
[2023-05-15] MEDS: Pantoprazole 40 MG VIAL IVP SCH ×2 (09:27→21:49)
[2023-05-15] MEDS: Calcium Carbonate 500 MG ChewTAB PO SCH ×3 (09:27→21:49)
[2023-05-15] MEDS: CALCIUM GLUC 1 GM/NS 50 ML 1 GM in Premix Bag 1 BAG IVPB SCH ×2 (09:28→15:52)
[2023-05-15] MEDS ORDERED: Simethicone 40 MG/0.6 ML Drop 30 ML BOT PO PRN (16:02)
[2023-05-15] MEDS ORDERED: Dextrose 5 % And 0.9 % NaCl 1,000 ML IV SCH (21:15)
[2023-05-15] MEDS: Dextrose 5% in Water 1,000 ML IV PRN ×2 (21:46→22:07)
[2023-05-15] MEDS: Tamsulosin HCl 0.4 MG CAP PO SCH (21:50)
[2023-05-16 03:52] LABS: #Monocytes 0.3 thou/uL (0.11-0.59); #Neutrophils 3.7 thou/uL (1.40-6.50); %Basophils 0.2 % (0.0-1.0); %Eosinophils 0.2 % (0.0-10.0); %Lymphocytes 5.2 % (21.0-51.0); %Monocytes 6.2 % (0.0-10.0); %Neutrophils 87.3 % (42.0-75.0); Hemoglobin 8.7 g/dL (14.0-18.0); Mean Corpuscular HGB CONC 34.3 g/dL (32.0-36.0); Mean Corpuscular Hemoglobin 32.5 pg (27.0-31.0); Mean Corpuscular Volume 94.8 fl (78.0-98.0); Mean Platelet Volume 10.7 fL (7.4-10.4); Platelet Count 174 10x3/uL (130-400); RBC Distribution Width 14.7 % (11.5-14.5); Red Blood Cell (RBC) Count 2.68 mill/uL (4.70-6.10); White Blood Cell (WBC) Count 4.2 10x3/uL (4.8-10.8)
[2023-05-16] MEDS: Dextrose 50% Abboject 50 ML SYRINGE SLOW IVP PRN (04:04)
[2023-05-16] MEDS: Dextrose 5 % And 0.9 % NaCl 1,000 ML IV SCH ×2 (04:29→14:32)
[2023-05-16 04:39] LABS: Anion Gap 15 mmol/L (10-20); BUN (Urea Nitrogen) 35 mg/dL (8.4-25.7); Calc. Creatinine Clearance 18 mL/min (70-130); Carbon Dioxide 21 mmol/L (23-31); Chloride 100 mmol/L (98-107); Estimated GFR 12; Glucose 70 mg/dL (83-110); Magnesium 1.7 mg/dL (1.6-2.6); Potassium 3.6 mmol/L (3.5-5.1); Sodium 132 mmol/L (136-145)
[2023-05-16 04:41] LABS: Phosphorus 2.2 mg/dL (2.3-4.7)
[2023-05-16] MEDS: Amiodarone 450 MG, Admixture Fee 1 EACH in Dextrose 5% in Water 250 ML IVPB SCH ×2 (05:32→20:24)
[2023-05-16] MEDS: Calcium Carbonate 500 MG ChewTAB PO SCH ×3 (08:24→20:23)
[2023-05-16] MEDS: Heparin 5,000 UNITS/ML VIAL SC SCH ×3 (08:24→20:24)
[2023-05-16] MEDS: Pantoprazole 40 MG VIAL IVP SCH ×2 (08:25→20:23)
[2023-05-16] MEDS: Tamsulosin HCl 0.4 MG CAP PO SCH (20:23)
[2023-05-16] MEDS ORDERED: Lactated Ringer's 1,000 ML IV SCH (22:00)
[2023-05-17] MEDS: Ondansetron PF 4 MG/2 ML Vial IVP PRN (00:20)
[2023-05-17] MEDS: Dextrose 50% Abboject 50 ML SYRINGE SLOW IVP PRN (04:25)
[2023-05-17 05:29] LABS: #Monocytes 0.3 thou/uL (0.11-0.59); #Neutrophils 2.6 thou/uL (1.40-6.50); %Basophils 0.3 % (0.0-1.0); %Eosinophils 0.3 % (0.0-10.0); %Lymphocytes 6.6 % (21.0-51.0); %Monocytes 9.1 % (0.0-10.0); %Neutrophils 82.8 % (42.0-75.0); Hemoglobin 7.9 g/dL (14.0-18.0); Mean Corpuscular HGB CONC 33.3 g/dL (32.0-36.0); Mean Corpuscular Hemoglobin 33.2 pg (27.0-31.0); Mean Corpuscular Volume 99.6 fl (78.0-98.0); Mean Platelet Volume 10.4 fL (7.4-10.4); Platelet Count 145 10x3/uL (130-400); RBC Distribution Width 14.8 % (11.5-14.5); Red Blood Cell (RBC) Count 2.38 mill/uL (4.70-6.10); White Blood Cell (WBC) Count 3.2 10x3/uL (4.8-10.8)
[2023-05-17 05:54] LABS: Magnesium 1.3 mg/dL (1.6-2.6); Phosphorus 2.7 mg/dL (2.3-4.7)
[2023-05-17] MEDS: Calcium Carbonate 500 MG ChewTAB PO SCH ×3 (09:53→20:33)
[2023-05-17] MEDS: Heparin 5,000 UNITS/ML VIAL SC SCH ×3 (09:54→20:34)
[2023-05-17] MEDS: Pantoprazole 40 MG VIAL IVP SCH ×2 (09:54→20:35)
[2023-05-17] MEDS: Magnesium Sulfate In Water 4 GM in Premix Bag 1 BAG IVPB SCH ×2 (10:00→12:56)
[2023-05-17] MEDS ORDERED: MAGNESIUM IVPB SCH (11:45)
[2023-05-17] MEDS: Amiodarone 450 MG, Admixture Fee 1 EACH in Dextrose 5% in Water 250 ML IVPB SCH (12:56)
[2023-05-17] MEDS: Tamsulosin HCl 0.4 MG CAP PO SCH (20:34)
[2023-05-18] MEDS: Amiodarone 450 MG, Admixture Fee 1 EACH in Dextrose 5% in Water 250 ML IVPB SCH ×2 (03:00→18:45)
[2023-05-18 05:17] LABS: #Monocytes 0.3 thou/uL (0.11-0.59); #Neutrophils 2.8 thou/uL (1.40-6.50); %Basophils 0.3 % (0.0-1.0); %Eosinophils 0.3 % (0.0-10.0); %Lymphocytes 5.9 % (21.0-51.0); %Monocytes 9.8 % (0.0-10.0); %Neutrophils 82.8 % (42.0-75.0); Hemoglobin 8.3 g/dL (14.0-18.0); Mean Corpuscular HGB CONC 33.7 g/dL (32.0-36.0); Mean Corpuscular Hemoglobin 32.7 pg (27.0-31.0); Mean Corpuscular Volume 96.9 fl (78.0-98.0); Mean Platelet Volume 10.4 fL (7.4-10.4); Platelet Count 139 10x3/uL (130-400); RBC Distribution Width 14.4 % (11.5-14.5); Red Blood Cell (RBC) Count 2.54 mill/uL (4.70-6.10); White Blood Cell (WBC) Count 3.4 10x3/uL (4.8-10.8)
[2023-05-18 06:02] LABS: Phosphorus 2.3 mg/dL (2.3-4.7)
[2023-05-18 06:07] LABS: Anion Gap 10 mmol/L (10-20); BUN (Urea Nitrogen) 23 mg/dL (8.4-25.7); Calc. Creatinine Clearance 17 mL/min (70-130); Carbon Dioxide 25 mmol/L (23-31); Chloride 99 mmol/L (98-107); Estimated GFR 11; Glucose 86 mg/dL (83-110); Magnesium 2.1 mg/dL (1.6-2.6); Potassium 3.5 mmol/L (3.5-5.1); Sodium 130 mmol/L (136-145)
[2023-05-18 06:12] LABS: Calcium 6.6 mg/dL (7.8-10.44)
[2023-05-18] MEDS ORDERED: Calcium Chloride 1 GM/10 ML Abboject SYRINGE IVP SCH (06:30)
[2023-05-18] MEDS: Ondansetron PF 4 MG/2 ML Vial IVP PRN (07:30)
[2023-05-18] MEDS: Calcium Carbonate 500 MG ChewTAB PO SCH ×3 (08:43→21:03)
[2023-05-18] MEDS: Heparin 5,000 UNITS/ML VIAL SC SCH ×3 (08:44→21:02)
[2023-05-18] MEDS: Pantoprazole 40 MG VIAL IVP SCH ×2 (08:45→21:06)
[2023-05-18] MEDS ORDERED: Digoxin 0.5 MG/2 ML AMP SLOW IVP SCH (10:00)
[2023-05-18] MEDS: Furosemide 100 MG in Sodium Chloride 0.9% 90 ML IVPB SCH ×2 (15:10→21:02)
[2023-05-18] MEDS: Tamsulosin HCl 0.4 MG CAP PO SCH (21:03)
[2023-05-19] MEDS: Ondansetron PF 4 MG/2 ML Vial IVP PRN (00:05)
[2023-05-19 06:07] LABS: #Monocytes 0.4 thou/uL (0.11-0.59); %Basophils 0.3 % (0.0-1.0); %Eosinophils 0.5 % (0.0-10.0); %Lymphocytes 5.5 % (21.0-51.0); %Monocytes 9.6 % (0.0-10.0); %Neutrophils 83.3 % (42.0-75.0); Hemoglobin 8.6 g/dL (14.0-18.0); Mean Corpuscular HGB CONC 33.3 g/dL (32.0-36.0); Mean Corpuscular Volume 98.9 fl (78.0-98.0); Mean Platelet Volume 10.2 fL (7.4-10.4); Platelet Count 139 10x3/uL (130-400); RBC Distribution Width 14.1 % (11.5-14.5); Red Blood Cell (RBC) Count 2.61 mill/uL (4.70-6.10); White Blood Cell (WBC) Count 3.6 10x3/uL (4.8-10.8)
[2023-05-19 06:33] LABS: ALT (SGPT) 9 U/L (8-55); AST (SGOT) 21 U/L (5-34); Albumin 2.1 g/dL (3.4-4.8); Alkaline Phosphatase 45 U/L (40-110); Anion Gap 9 mmol/L (10-20); BUN (Urea Nitrogen) 29 mg/dL (8.4-25.7); Bilirubin, Total 0.4 mg/dL (0.2-1.2); Calc. Creatinine Clearance 14 mL/min (70-130); Carbon Dioxide 22 mmol/L (23-31); Chloride 99 mmol/L (98-107); Estimated GFR 9; Globulin 6.6 g/dL (2.4-3.5); Glucose 92 mg/dL (83-110); Phosphorus 2.6 mg/dL (2.3-4.7); Potassium 3.9 mmol/L (3.5-5.1); Protein, Total 8.7 g/dL (5.8-8.1); Sodium 126 mmol/L (136-145)
[2023-05-19 06:34] LABS: Digoxin 0.85 ng/mL (0.8-2.0)
[2023-05-19 06:39] LABS: Calcium 6.7 mg/dL (7.8-10.44)
[2023-05-19] MEDS: Heparin 5,000 UNITS/ML VIAL SC SCH ×3 (08:33→20:50)
[2023-05-19] MEDS: Pantoprazole 40 MG VIAL IVP SCH ×2 (08:33→20:50)
[2023-05-19] MEDS: Amiodarone 450 MG, Admixture Fee 1 EACH in Dextrose 5% in Water 250 ML IVPB SCH (08:33)
[2023-05-19] MEDS: Calcium Carbonate 500 MG ChewTAB PO SCH ×3 (08:33→22:40)
[2023-05-19] MEDS: Tamsulosin HCl 0.4 MG CAP PO SCH (20:51)
[2023-05-20] MEDS: Calcium Carbonate 500 MG ChewTAB PO PRN (00:58)
[2023-05-20] MEDS: Amiodarone 450 MG, Admixture Fee 1 EACH in Dextrose 5% in Water 250 ML IVPB SCH (00:59)
[2023-05-20 05:35] LABS: #Monocytes 0.3 thou/uL (0.11-0.59); #Neutrophils 2.2 thou/uL (1.40-6.50); %Basophils 0.4 % (0.0-1.0); %Eosinophils 0.4 % (0.0-10.0); %Lymphocytes 8.4 % (21.0-51.0); %Monocytes 11.3 % (0.0-10.0); %Neutrophils 78.4 % (42.0-75.0); Hemoglobin 8.6 g/dL (14.0-18.0); Mean Corpuscular HGB CONC 33.6 g/dL (32.0-36.0); Mean Corpuscular Hemoglobin 32.8 pg (27.0-31.0); Mean Corpuscular Volume 97.7 fl (78.0-98.0); Mean Platelet Volume 10.7 fL (7.4-10.4); Platelet Count 142 10x3/uL (130-400); Red Blood Cell (RBC) Count 2.62 mill/uL (4.70-6.10); White Blood Cell (WBC) Count 2.7 10x3/uL (4.8-10.8)
[2023-05-20 05:54] LABS: Phosphorus 2.8 mg/dL (2.3-4.7)
[2023-05-20 06:02] LABS: Anion Gap 10 mmol/L (10-20); BUN (Urea Nitrogen) 37 mg/dL (8.4-25.7); Calc. Creatinine Clearance 12 mL/min (70-130); Carbon Dioxide 22 mmol/L (23-31); Chloride 97 mmol/L (98-107); Estimated GFR 8; Glucose 97 mg/dL (83-110); Potassium 3.3 mmol/L (3.5-5.1); Sodium 126 mmol/L (136-145)
[2023-05-20 06:34] LABS: Calcium 6.6 mg/dL (7.8-10.44)
[2023-05-20] MEDS: Heparin 5,000 UNITS/ML VIAL SC SCH ×3 (09:31→20:20)
[2023-05-20] MEDS: Calcium Carbonate 500 MG ChewTAB PO SCH ×3 (09:31→20:18)
[2023-05-20] MEDS: Pantoprazole 40 MG VIAL IVP SCH ×2 (09:32→20:21)
[2023-05-20] MEDS ORDERED: Amiodarone 200 MG TAB PO SCH ×2 (09:59→10:15)
[2023-05-20] MEDS ORDERED: Furosemide 40 MG TAB PO SCH (15:00)
[2023-05-20] MEDS ORDERED: Epoetin (ESRD) 10,000 UNITS/ML VIAL SC SCH (16:00)
[2023-05-20] MEDS ORDERED: EPOETIN ALFA-EPBX (ESRD) 10,000 UNITS/ML VIAL SC SCH (16:00)
[2023-05-20] MEDS: Amiodarone 200 MG TAB PO SCH ×2 (16:01→20:19)
[2023-05-20] MEDS: Tamsulosin HCl 0.4 MG CAP PO SCH (20:19)
[2023-05-20] MEDS: Ondansetron PF 4 MG/2 ML Vial IVP PRN (20:22)
[2023-05-21 04:26] LABS: #Monocytes 0.3 thou/uL (0.11-0.59); #Neutrophils 1.9 thou/uL (1.40-6.50); %Basophils 0.4 % (0.0-1.0); %Eosinophils 1.2 % (0.0-10.0); %Lymphocytes 12.1 % (21.0-51.0); %Monocytes 13.2 % (0.0-10.0); %Neutrophils 72.3 % (42.0-75.0); Hemoglobin 7.9 g/dL (14.0-18.0); Mean Corpuscular HGB CONC 34.3 g/dL (32.0-36.0); Mean Corpuscular Hemoglobin 32.8 pg (27.0-31.0); Mean Corpuscular Volume 95.4 fl (78.0-98.0); Mean Platelet Volume 10.4 fL (7.4-10.4); Platelet Count 146 10x3/uL (130-400); RBC Distribution Width 13.9 % (11.5-14.5); Red Blood Cell (RBC) Count 2.41 mill/uL (4.70-6.10); White Blood Cell (WBC) Count 2.6 10x3/uL (4.8-10.8)
[2023-05-21 04:46] LABS: Anion Gap 7 mmol/L (10-20); BUN (Urea Nitrogen) 37 mg/dL (8.4-25.7); Calc. Creatinine Clearance 12 mL/min (70-130); Carbon Dioxide 22 mmol/L (23-31); Chloride 101 mmol/L (98-107); Estimated GFR 8; Glucose 79 mg/dL (83-110); Magnesium 1.4 mg/dL (1.6-2.6); Phosphorus 3.2 mg/dL (2.3-4.7); Potassium 3.4 mmol/L (3.5-5.1); Sodium 127 mmol/L (136-145)
[2023-05-21 05:20] LABS: Calcium 6.3 mg/dL (7.8-10.44)
[2023-05-21] MEDS: Amiodarone 200 MG TAB PO SCH ×2 (09:16→20:30)
[2023-05-21] MEDS: Calcium Carbonate 500 MG ChewTAB PO SCH ×3 (09:16→20:31)
[2023-05-21] MEDS: Heparin 5,000 UNITS/ML VIAL SC SCH ×3 (09:16→20:32)
[2023-05-21] MEDS: Pantoprazole 40 MG VIAL IVP SCH (09:16)
[2023-05-21] MEDS ORDERED: Potassium Chloride 20 MEQ TAB PO SCH (10:00)
[2023-05-21] MEDS ORDERED: Magnesium Sulfate 4 GM in Sodium Chloride 0.9% 250 ML 250 ML IVPB SCH (16:00)
[2023-05-21] MEDS ORDERED: Magnesium Sulfate In Water 4 GM in Premix Bag 1 BAG IVPB SCH (16:30)
[2023-05-21] MEDS: Tamsulosin HCl 0.4 MG CAP PO SCH (20:30)
[2023-05-22 04:33] LABS: #Monocytes 0.4 thou/uL (0.11-0.59); #Neutrophils 2.2 thou/uL (1.40-6.50); %Basophils 0.3 % (0.0-1.0); %Eosinophils 0.7 % (0.0-10.0); %Lymphocytes 12.9 % (21.0-51.0); %Monocytes 11.9 % (0.0-10.0); %Neutrophils 73.5 % (42.0-75.0); Hemoglobin 8.4 g/dL (14.0-18.0); Mean Corpuscular HGB CONC 34.1 g/dL (32.0-36.0); Mean Corpuscular Hemoglobin 32.8 pg (27.0-31.0); Mean Corpuscular Volume 96.1 fl (78.0-98.0); Mean Platelet Volume 10.4 fL (7.4-10.4); Platelet Count 176 10x3/uL (130-400); RBC Distribution Width 14.2 % (11.5-14.5); Red Blood Cell (RBC) Count 2.56 mill/uL (4.70-6.10); White Blood Cell (WBC) Count 2.9 10x3/uL (4.8-10.8)
[2023-05-22 05:02] LABS: Anion Gap 13 mmol/L (10-20); BUN (Urea Nitrogen) 42 mg/dL (8.4-25.7); Calc. Creatinine Clearance 12 mL/min (70-130); Carbon Dioxide 22 mmol/L (23-31); Chloride 100 mmol/L (98-107); Estimated GFR 8; Glucose 85 mg/dL (83-110); Phosphorus 3.8 mg/dL (2.3-4.7); Potassium 3.6 mmol/L (3.5-5.1); Sodium 131 mmol/L (136-145)
[2023-05-22 05:32] LABS: Calcium 6.7 mg/dL (7.8-10.44)
[2023-05-22] MEDS: Calcium Carbonate 500 MG ChewTAB PO SCH ×3 (10:17→21:09)
[2023-05-22] MEDS: Aspirin 81 mg Enteric Coated Tablet PO SCH (10:17)
[2023-05-22] MEDS: Amiodarone 200 MG TAB PO SCH ×2 (10:17→21:09)
[2023-05-22] MEDS: Heparin 5,000 UNITS/ML VIAL SC SCH ×2 (10:17→15:51)
[2023-05-22] MEDS ORDERED: Apixaban 5 MG TAB PO SCH (15:30)
[2023-05-22] MEDS: Melatonin 3 MG TAB PO PRN (21:09)
[2023-05-22] MEDS: Tamsulosin HCl 0.4 MG CAP PO SCH (21:09)
[2023-05-23 04:43] LABS: #Monocytes 0.4 thou/uL (0.11-0.59); #Neutrophils 1.8 thou/uL (1.40-6.50); %Basophils 0.4 % (0.0-1.0); %Eosinophils 0.8 % (0.0-10.0); %Monocytes 15.1 % (0.0-10.0); %Neutrophils 74.3 % (42.0-75.0); Hemoglobin 7.5 g/dL (14.0-18.0); Mean Corpuscular HGB CONC 33.5 g/dL (32.0-36.0); Mean Corpuscular Hemoglobin 32.9 pg (27.0-31.0); Mean Corpuscular Volume 98.2 fl (78.0-98.0); Mean Platelet Volume 10.5 fL (7.4-10.4); Platelet Count 157 10x3/uL (130-400); RBC Distribution Width 14.6 % (11.5-14.5); Red Blood Cell (RBC) Count 2.28 mill/uL (4.70-6.10); White Blood Cell (WBC) Count 2.5 10x3/uL (4.8-10.8)
[2023-05-23 05:19] LABS: Anion Gap 13 mmol/L (10-20); BUN (Urea Nitrogen) 43 mg/dL (8.4-25.7); Calc. Creatinine Clearance 13 mL/min (70-130); Carbon Dioxide 19 mmol/L (23-31); Chloride 105 mmol/L (98-107); Estimated GFR 9; Glucose 83 mg/dL (83-110); Phosphorus 3.4 mg/dL (2.3-4.7); Potassium 3.4 mmol/L (3.5-5.1); Sodium 134 mmol/L (136-145)
[2023-05-23 05:22] LABS: Calcium 6.7 mg/dL (7.8-10.44)
[2023-05-23] MEDS ORDERED: Apixaban 5 MG TAB PO SCH (06:00)
[2023-05-23] MEDS: Aspirin 81 mg Enteric Coated Tablet PO SCH (08:37)
[2023-05-23] MEDS: Amiodarone 200 MG TAB PO SCH (08:37)
[2023-05-23] MEDS: Calcium Carbonate 500 MG ChewTAB PO SCH ×2 (08:38→15:55)
[2023-05-23 10:34] VITALS: BMI 26.4
[2023-05-23] MEDS ORDERED: Potassium Chloride 20 MEQ TAB PO SCH (10:45)
[2023-05-23 14:40] LABS: Hemoglobin 7.4 g/dL (14.0-18.0); Platelet Count 159 10x3/uL (130-400)
[2023-05-23 15:32] VITALS: BP 128/79; TEMP 98
== END 2023-05-23 16:25 | disposition home or self-care (01) | DRG 308 ==
LOC: ERS 14:56 → IMCU/EMU 17:41 → 2SW 05-04 22:14 → 2NO 05-10 13:01 → CCU 05-12 04:44 → IMCU/EMU 05-15 12:53 → 2NO 05-21 16:42
PROVIDERS: ADMIT Internal Medicine Nephrology; ATTEND Hospitalist
PROC: 0D9670Z Drainage of Stomach with Drainage Device, Via Natural or Artificial Opening (ICD-10-PCS; 2023-05-10)
PROC: 5A2204Z Restoration of Cardiac Rhythm, Single (ICD-10-PCS; principal; 2023-05-13)
PROC: B246ZZ4 Ultrasonography of Right and Left Heart, Transesophageal (ICD-10-PCS; 2023-05-13)
PROC: 30233N1 Transfusion of Nonautologous Red Blood Cells into Peripheral Vein, Percutaneous Approach (ICD-10-PCS; 2023-05-13)
PROC: 06HY33Z Insertion of Infusion Device into Lower Vein, Percutaneous Approach (ICD-10-PCS; 2023-05-14)
PROC: 05HY33Z Insertion of Infusion Device into Upper Vein, Percutaneous Approach (ICD-10-PCS; 2023-05-15)
PROC: 5A1D70Z Performance of Urinary Filtration, Intermittent, Less than 6 Hours Per Day (ICD-10-PCS; 2023-05-17)
DX: I48.19 Other persistent atrial fibrillation (principal); I50.33 Acute on chronic diastolic (congestive) heart failure; J96.21 Acute and chronic respiratory failure with hypoxia; R57.1 Hypovolemic shock; N17.0 Acute kidney failure with tubular necrosis; N18.6 End stage renal disease; K56.609 Unspecified intestinal obstruction, unspecified as to partial versus complete obstruction; E87.1 Hypo-osmolality and hyponatremia; E87.20 Acidosis, unspecified; I82.621 Acute embolism and thrombosis of deep veins of right upper extremity; I13.2 Hypertensive heart and chronic kidney disease with heart failure and with stage 5 chronic kidney disease, or end stage renal disease; I47.1 Supraventricular tachycardia; I48.92 Unspecified atrial flutter; E78.00 Pure hypercholesterolemia, unspecified; E83.42 Hypomagnesemia; E78.5 Hyperlipidemia, unspecified; E87.6 Hypokalemia; I48.0 Paroxysmal atrial fibrillation; E11.22 Type 2 diabetes mellitus with diabetic chronic kidney disease; D63.1 Anemia in chronic kidney disease; E66.9 Obesity, unspecified; N40.0 Benign prostatic hyperplasia without lower urinary tract symptoms; E83.52 Hypercalcemia; N18.30 Chronic kidney disease, stage 3 unspecified; E83.51 Hypocalcemia; E86.0 Dehydration; I08.1 Rheumatic disorders of both mitral and tricuspid valves; Z20.822 Contact with and (suspected) exposure to COVID-19; Z85.46 Personal history of malignant neoplasm of prostate; Z68.26 Body mass index [BMI] 26.0-26.9, adult
CPT/HCPCS: 36415; 36416; 36430; 71045; 71275; 74018; 74019; 74174; 74176; 74250; 76770; 76999; 80048; 80053; 80162; 81001; 82040; 82306; 82570; 82607; 82728; 83540; 83550; 83605; 83615; 83690; 83735; 83880; 83970; 84100; 84156; 84443; 84484; 84550; 85025; 85610; 85730; 86140; 86704; 86850; 86900; 86901; 87040; 90935; 93005; 93010; 93306; 93312; 93798; 96365; 96372; 96375; 96376; C9113; G0257; J0153; J0282; J0613; J0696; J1160; J1642; J1644; J1650; J1940; J2272; J2405; J2704; J3010; J3475; J3480; J3489; J3490; J7030; J7042; J7050; J7070; J7120; J7999; P9016; P9045; P9047; Q4081; Q9963; Q9967; U0002

== ENCOUNTER 2023-06-18 14:40 | Inpatient (IN) | payer BC, MEDICARE ==
[2023-06-18 16:03] LABS: #Eosinphils 0.1 thou/uL (0.0-0.7); #Monocytes 0.4 thou/uL (0.11-0.59); #Neutrophils 2.1 thou/uL (1.40-6.50); %Basophils 0.7 % (0.0-1.0); %Eosinophils 2.6 % (0.0-10.0); %Lymphocytes 12.3 % (21.0-51.0); %Monocytes 13.6 % (0.0-10.0); %Neutrophils 70.1 % (42.0-75.0); Hematocrit 21.8 % (42.0-52.0); Hemoglobin 7.2 g/dL (14.0-18.0); Mean Corpuscular Hemoglobin 32.7 pg (27.0-31.0); Mean Corpuscular Volume 99.1 fl (78.0-98.0); Mean Platelet Volume 10.9 fL (7.4-10.4); Platelet Count 218 10x3/uL (130-400); RBC Distribution Width 15.2 % (11.5-14.5)
[2023-06-18] MEDS ORDERED: Pantoprazole 40 MG VIAL ONE (16:11)
[2023-06-18] MEDS ORDERED: Ondansetron PF 4 MG/2 ML Vial ONE (16:11)
[2023-06-18 16:20] LABS: INR-International Normal Ratio 1.4; PTT 34.5 sec (22.9-36.1)
[2023-06-18 16:29] LABS: ALT (SGPT) 12 U/L (8-55); AST (SGOT) 28 U/L (5-34); Albumin 2.4 g/dL (3.4-4.8); Alkaline Phosphatase 83 U/L (40-110); Anion Gap 11 mmol/L (10-20); BUN (Urea Nitrogen) 19 mg/dL (8.4-25.7); Bilirubin, Total 0.4 mg/dL (0.2-1.2); Calc. Creatinine Clearance 0 mL/min (70-130); Calcium 7.9 mg/dL (7.8-10.44); Carbon Dioxide 20 mmol/L (23-31); Chloride 105 mmol/L (98-107); Estimated GFR 36; Globulin 7.8 g/dL (2.4-3.5); Glucose 102 mg/dL (83-110); Potassium 4.7 mmol/L (3.5-5.1); Protein, Total 10.2 g/dL (5.8-8.1); Sodium 131 mmol/L (136-145)
[2023-06-18 16:39] LABS: Troponin I Less than 0.010 ng/mL (< 0.028)
[2023-06-18] MEDS ORDERED: Pantoprazole 80 MG, Admixture Fee 1 EACH in Sodium Chloride 0.9% 100 ML IVPB SCH (16:45)
[2023-06-18 17:33] LABS: Iron 50 ug/dL (65-175); Iron Binding Capacity, Total 160 mcg/dL (261-462)
[2023-06-18] MEDS ORDERED: Metoprolol Tartrate 50 MG TAB ONE (17:52)
[2023-06-18] MEDS ORDERED: HumaLOG 300 UNITS/3 ML VIAL SC PRN ×2 (18:13)
[2023-06-18] MEDS ORDERED: Glucagon 1 MG/ML KIT IM PRN (18:13)
[2023-06-18] MEDS ORDERED: Dextrose 5% in Water 1,000 ML IV PRN (18:13)
[2023-06-18] MEDS ORDERED: Ondansetron ODT 4 MG TAB PO PRN (18:13)
[2023-06-18] MEDS ORDERED: Dextrose 50% Abboject 50 ML SYRINGE SLOW IVP PRN (18:13)
[2023-06-18] MEDS ORDERED: Acetaminophen 325 MG TAB PO PRN (18:13)
[2023-06-18] MEDS ORDERED: Ondansetron PF 4 MG/2 ML Vial IVP PRN (18:13)
[2023-06-18 19:16] LABS: Iron 60 ug/dL (65-175); Iron Binding Capacity, Total 165 mcg/dL (261-462)
[2023-06-18] MEDS ORDERED: Furosemide 20 MG/2 ML VIAL SLOW IVP SCH (21:30)
[2023-06-18] MEDS: Tamsulosin HCl 0.4 MG CAP PO SCH (21:54)
[2023-06-18] MEDS: Simvastatin 10 MG TAB PO SCH (21:54)
[2023-06-18] MEDS: Melatonin 3 MG TAB PO PRN (21:58)
[2023-06-19 04:28] LABS: #Eosinphils 0.1 thou/uL (0.0-0.7); #Monocytes 0.4 thou/uL (0.11-0.59); #Neutrophils 1.6 thou/uL (1.40-6.50); %Basophils 0.8 % (0.0-1.0); %Eosinophils 2.9 % (0.0-10.0); %Monocytes 15.2 % (0.0-10.0); %Neutrophils 64.3 % (42.0-75.0); Hematocrit 22.8 % (42.0-52.0); Hemoglobin 7.3 g/dL (14.0-18.0); Mean Corpuscular Hemoglobin 31.7 pg (27.0-31.0); Mean Corpuscular Volume 99.1 fl (78.0-98.0); Mean Platelet Volume 10.6 fL (7.4-10.4); Platelet Count 183 10x3/uL (130-400); RBC Distribution Width 15.9 % (11.5-14.5); White Blood Cell (WBC) Count 2.4 10x3/uL (4.8-10.8)
[2023-06-19 04:52] LABS: Anion Gap 9 mmol/L (10-20); BUN (Urea Nitrogen) 17 mg/dL (8.4-25.7); Calc. Creatinine Clearance 44 mL/min (70-130); Calcium 7.6 mg/dL (7.8-10.44); Carbon Dioxide 21 mmol/L (23-31); Chloride 109 mmol/L (98-107); Estimated GFR 37; Glucose 85 mg/dL (83-110); Potassium 3.9 mmol/L (3.5-5.1); Sodium 135 mmol/L (136-145)
[2023-06-19] MEDS: Furosemide 20 MG/2 ML VIAL SLOW IVP SCH ×2 (05:13→13:31)
[2023-06-19] MEDS ORDERED: Calcium Carbonate 500 MG ChewTAB PO SCH (06:00)
[2023-06-19] MEDS ORDERED: Calcium Carbonate 500 MG TAB PO SCH (08:00)
[2023-06-19] MEDS ORDERED: Amiodarone 200 MG TAB PO SCH (09:00)
[2023-06-19] MEDS ORDERED: Pantoprazole 40 MG VIAL IVP SCH (09:00)
[2023-06-19] MEDS: Tamsulosin HCl 0.4 MG CAP PO SCH ×2 (09:22→20:51)
[2023-06-19] MEDS: Magnesium Oxide 400 MG TAB PO SCH (09:27)
[2023-06-19] MEDS: Amiodarone 200 MG TAB PO SCH (09:27)
[2023-06-19] MEDS ORDERED: Digoxin 0.5 MG/2 ML AMP SLOW IVP SCH (09:45)
[2023-06-19] MEDS: Calcium Carbonate 500 MG ChewTAB PO SCH ×3 (10:17→18:00)
[2023-06-19 13:14] VITALS: BMI 27.0
[2023-06-19] MEDS ORDERED: Polyethylene Glycol 3350 17 GM Packet PO PRN (18:18)
[2023-06-19] MEDS ORDERED: GoLYTELY 4,000 ml Bottle PO SCH (19:30)
[2023-06-19] MEDS: Senokot S 8.6-50 MG TAB PO SCH (20:51)
[2023-06-19] MEDS: Simvastatin 10 MG TAB PO SCH (20:51)
[2023-06-20] MEDS: Melatonin 3 MG TAB PO PRN (00:50)
[2023-06-20 04:45] LABS: #Eosinphils 0.1 thou/uL (0.0-0.7); #Monocytes 0.4 thou/uL (0.11-0.59); #Neutrophils 1.6 thou/uL (1.40-6.50); %Basophils 0.8 % (0.0-1.0); %Eosinophils 3.2 % (0.0-10.0); %Lymphocytes 14.9 % (21.0-51.0); %Monocytes 14.9 % (0.0-10.0); Hematocrit 23.5 % (42.0-52.0); Hemoglobin 7.6 g/dL (14.0-18.0); Mean Corpuscular HGB CONC 32.3 g/dL (32.0-36.0); Mean Corpuscular Hemoglobin 31.5 pg (27.0-31.0); Mean Corpuscular Volume 97.5 fl (78.0-98.0); Mean Platelet Volume 10.4 fL (7.4-10.4); Platelet Count 200 10x3/uL (130-400); RBC Distribution Width 15.3 % (11.5-14.5); Red Blood Cell (RBC) Count 2.41 mill/uL (4.70-6.10); White Blood Cell (WBC) Count 2.5 10x3/uL (4.8-10.8)
[2023-06-20 05:25] LABS: Anion Gap 11 mmol/L (10-20); BUN (Urea Nitrogen) 14 mg/dL (8.4-25.7); Calc. Creatinine Clearance 46 mL/min (70-130); Calcium 7.6 mg/dL (7.8-10.44); Carbon Dioxide 22 mmol/L (23-31); Chloride 105 mmol/L (98-107); Estimated GFR 38; Glucose 70 mg/dL (83-110); Potassium 3.4 mmol/L (3.5-5.1); Sodium 135 mmol/L (136-145)
[2023-06-20] MEDS: Furosemide 20 MG/2 ML VIAL SLOW IVP SCH ×2 (05:28→13:30)
[2023-06-20] MEDS: Amiodarone 200 MG TAB PO SCH (07:48)
[2023-06-20] MEDS: Calcium Carbonate 500 MG ChewTAB PO SCH ×3 (08:28→18:39)
[2023-06-20] MEDS ORDERED: Lidocaine 1% PF 5 ML VIAL ONE (10:25)
[2023-06-20] MEDS ORDERED: PROPOFOL 200 MG/20 ML VIAL ONE (10:25)
[2023-06-20] MEDS: Senokot S 8.6-50 MG TAB PO SCH (13:28)
[2023-06-20] MEDS: Magnesium Oxide 400 MG TAB PO SCH (13:28)
[2023-06-20] MEDS: Tamsulosin HCl 0.4 MG CAP PO SCH (13:29)
[2023-06-20 16:09] VITALS: BP 133/77; TEMP 97.7
[2023-06-21 15:15] LABS: Kappa Lambda Light Chain Ratio 0.01 (0.26-1.65); Kappa Light Chains 30.8 mg/L (3.3-19.4); Lambda Light Chain 3645.7 mg/L (5.7-26.3)
[2023-06-22 18:13] LABS: Beta-2-Microglobulin 6.3 mg/L (0.6-2.4)
[2023-06-25 14:38] LABS: IFE-Serum Interpretation Note: (.); IgA - Total IgA (Sendout) 85 mg/dL (61-437); Immunoglobulin - G (Sendout) 6257 mg/dL (603-1613); Immunoglobulin - M (Sendout) 76 mg/dL (15-143)
[2023-06-25 15:14] LABS: Albumin-Ur 20.7 % (.); Alpha 1 - Ur 2.5 % (.); Alpha 2 - Ur 3.2 % (.); Beta-Ur 61.4 % (.); Gamma-Ur 12.2 % (.); M-Spike,% Note: % (Not Observed); Protein, Urine 330.1 mg/dL (Not Estab.)
[2023-06-25 15:14] LABS: A/G Ratio 0.4 (0.7-1.7); Albumin 2.7 g/dL (2.9-4.4); Alpha 1 0.3 g/dL (0.0-0.4); Alpha 2 0.9 g/dL (0.4-1.0); Beta 0.9 g/dL (0.7-1.3); Gamma 4.1 g/dL (0.4-1.8); Globulin, Total 6.1 g/dL (2.2-3.9); M-Spike 3.5 g/dL (Not Observed)
== END 2023-06-20 19:14 | disposition home or self-care (01) | DRG 841 ==
LOC: ERS 14:40 → 2NO 18:13 → OBSVTOIN 06-19 13:28
PROVIDERS: ADMIT Physician Assistant; ATTEND Hospitalist
PROC: 30233N1 Transfusion of Nonautologous Red Blood Cells into Peripheral Vein, Percutaneous Approach (ICD-10-PCS; 2023-06-18)
PROC: 0W3P8ZZ Control Bleeding in Gastrointestinal Tract, Via Natural or Artificial Opening Endoscopic (ICD-10-PCS; principal; 2023-06-20)
PROC: 0DBM8ZZ Excision of Descending Colon, Via Natural or Artificial Opening Endoscopic (ICD-10-PCS; 2023-06-20)
DX: C90.00 Multiple myeloma not having achieved remission (principal); I13.0 Hypertensive heart and chronic kidney disease with heart failure and stage 1 through stage 4 chronic kidney disease, or unspecified chronic kidney disease; I48.92 Unspecified atrial flutter; I50.32 Chronic diastolic (congestive) heart failure; I82.611 Acute embolism and thrombosis of superficial veins of right upper extremity; D53.9 Nutritional anemia, unspecified; I48.0 Paroxysmal atrial fibrillation; N18.30 Chronic kidney disease, stage 3 unspecified; E78.5 Hyperlipidemia, unspecified; E11.22 Type 2 diabetes mellitus with diabetic chronic kidney disease; Z79.899 Other long term (current) drug therapy; K57.30 Diverticulosis of large intestine without perforation or abscess without bleeding; D63.1 Anemia in chronic kidney disease
CPT/HCPCS: 36415; 36416; 36430; 76999; 80048; 80053; 82232; 83540; 83550; 83615; 83880; 83883; 84075; 84155; 84156; 84165; 84166; 84484; 85025; 85610; 85730; 86334; 86335; 86850; 86900; 86901; 88305; 93005; 96374; 96375; 96376; C9113; G0378; J1160; J1940; J2405; J2704; J3490; P9016

== ENCOUNTER 2023-07-24 13:12 | Outpatient (CLI) | payer BC, MEDICARE ==
[2023-07-24 14:12] LABS: #Eosinphils 0.1 10x3/uL (0.0-0.5); #Monocytes 0.6 10x3/uL (0.0-1.1); #Neutrophils 3.3 10x3/uL (1.5-8.4); %Basophils 0.7 % (0.0-2.0); %Eosinophils 2.4 % (0.0-6.0); %Lymphocytes 10.9 % (18.0-47.0); %Monocytes 12.2 % (0.0-10.0); %Neutrophils 73.1 % (40.0-75.0); Hematocrit 31.7 % (38.8-50.0); Hemoglobin 10.1 g/dL (13.5-17.5); Mean Corpuscular HGB CONC 31.9 g/dL (32.0-36.0); Mean Corpuscular Hemoglobin 31.9 pg (27.0-33.0); Mean Platelet Volume 10.6 fl (7.4-10.4); Platelet Count 224 10x3/uL (150-450); RBC Distribution Width 16.5 % (11.5-14.5); Red Blood Cell (RBC) Count 3.17 10x6/uL (4.32-5.72); White Blood Cell (WBC) Count 4.5 10x3/uL (3.5-10.5)
[2023-07-24 14:42] LABS: Anion Gap 13 mmol/L (10-20); BUN (Urea Nitrogen) 24 mg/dL (8.4-25.7); Calc. Creatinine Clearance 0 mL/min (70-130); Calcium 7.9 mg/dL (7.8-10.44); Carbon Dioxide 19 mmol/L (23-31); Chloride 109 mmol/L (98-107); Estimated GFR 42; Glucose 102 mg/dL (83-110); Potassium 4.3 mmol/L (3.5-5.1); Sodium 137 mmol/L (136-145)
== END 2023-07-24 13:13 | disposition home or self-care (01) ==
LOC: LABBT 13:12
PROVIDERS: ATTEND Internal Medicine Cardiovascular Disease
DX: Z01.812 Encounter for preprocedural laboratory examination (principal); I48.91 Unspecified atrial fibrillation
CPT/HCPCS: 80048; 85025

== ENCOUNTER 2023-07-26 06:35 | Day surgery (SDC) | payer BC, MEDICARE ==
[2023-07-24 14:04] VITALS: BMI 26.2
[2023-07-26] MEDS ORDERED: Ketamine 50 MG/ML (10ML VIAL) ONE (07:54)
[2023-07-26] MEDS ORDERED: Lidocaine 1% PF 5 ML VIAL ONE (08:12)
== END 2023-07-26 09:40 | disposition home or self-care (01) ==
LOC: SDC 06:35
PROVIDERS: ATTEND Internal Medicine Cardiovascular Disease
PROC: 5A2204Z Restoration of Cardiac Rhythm, Single (ICD-10-PCS; principal; 2023-07-26)
PROC: B245ZZ4 Ultrasonography of Left Heart, Transesophageal (ICD-10-PCS; principal; 2023-07-26)
DX: I48.0 Paroxysmal atrial fibrillation (principal); I08.0 Rheumatic disorders of both mitral and aortic valves; E11.22 Type 2 diabetes mellitus with diabetic chronic kidney disease; I13.0 Hypertensive heart and chronic kidney disease with heart failure and stage 1 through stage 4 chronic kidney disease, or unspecified chronic kidney disease; N18.32 Chronic kidney disease, stage 3b; I50.32 Chronic diastolic (congestive) heart failure; D63.1 Anemia in chronic kidney disease; I48.92 Unspecified atrial flutter; K59.09 Other constipation; I48.91 Unspecified atrial fibrillation; R00.1 Bradycardia, unspecified; E78.5 Hyperlipidemia, unspecified; Z79.84 Long term (current) use of oral hypoglycemic drugs; Z79.899 Other long term (current) drug therapy
CPT/HCPCS: 92960; 93005; 93010; 93312

== ENCOUNTER 2023-08-14 11:56 | Outpatient (CLI) | payer BC, MEDICARE | END 2023-08-14 11:57 | disposition home or self-care (01) | LOC: RAD 11:56 | PROVIDERS: ATTEND Internal Medicine | DX: R06.02 Shortness of breath (principal); R05.9 Cough, unspecified; C90.00 Multiple myeloma not having achieved remission | CPT/HCPCS: 36415; 71046; 80053; 82248; 82728; 83036; 83615; 83883; 84100; 84155; 84165; 84550 ==

== ENCOUNTER 2023-09-03 11:45 | Inpatient (IN) | payer BC, MEDICARE ==
[2023-09-03 12:55] LABS: Hematocrit 30.6 % (42.0-52.0); Hemoglobin 10.3 g/dL (14.0-18.0); Mean Corpuscular HGB CONC 33.7 g/dL (32.0-36.0); Mean Corpuscular Hemoglobin 32.5 pg (27.0-31.0); Mean Corpuscular Volume 96.5 fl (78.0-98.0); RBC Distribution Width 15.9 % (11.5-14.5); Red Blood Cell (RBC) Count 3.17 mill/uL (4.70-6.10); White Blood Cell (WBC) Count 5.4 10x3/uL (4.8-10.8)
[2023-09-03 12:57] LABS: Delete Auto Diff?? YES; Manual Diff?? YES; Platelet Count 115 10x3/uL (130-400)
[2023-09-03 13:21] LABS: Troponin I 0.106 ng/mL (< 0.028)
[2023-09-03] MEDS ORDERED: Acetaminophen 325 MG TAB ONE (13:24)
[2023-09-03 13:25] LABS: Anisocytosis SLIGHT = 6-15 cells HPF (0-5); Band 22 % (5-11); CellaVision Operator ID LAB.MJL; Eosinophils 7 % (0-10); Lymphocytes 4 % (21-51); Metamyelocyte 2 % (0-0); Monocytes 1 % (0-10); Myelocyte 1 % (0-0); Neutrophil 60 % (42-75); Ovalocytes SLIGHT = 2-5 cells HPF (0-1); Platelet Adequacy Comment Platelets Decreased; Polychromasia SLIGHT = 2-3 cells HPF (0-2); Reactive Lymphocytes 2 % (0-10); Total Cell Count 100
[2023-09-03] MEDS ORDERED: Boostrix 0.5 ML (Tdap) VIAL (>/=7 yrs of age) ONE (13:25)
[2023-09-03 13:26] LABS: ALT (SGPT) 22 U/L (8-55); AST (SGOT) 29 U/L (5-34); Albumin 3.6 g/dL (3.4-4.8); Alkaline Phosphatase 104 U/L (40-110); Anion Gap 16 mmol/L (10-20); BUN (Urea Nitrogen) 18 mg/dL (8.4-25.7); Bilirubin, Total 0.7 mg/dL (0.2-1.2); Calc. Creatinine Clearance 0 mL/min (70-130); Calcium 8.3 mg/dL (7.8-10.44); Carbon Dioxide 20 mmol/L (23-31); Chloride 108 mmol/L (98-107); Estimated GFR 45; Globulin 2.3 g/dL (2.4-3.5); Glucose 210 mg/dL (83-110); Lipase 94 U/L (8-78); Potassium 4.1 mmol/L (3.5-5.1); Protein, Total 5.9 g/dL (5.8-8.1); Sodium 140 mmol/L (136-145)
[2023-09-03] MEDS ORDERED: Aspirin 325 MG TAB ONE (13:39)
[2023-09-03] MEDS ORDERED: Ondansetron ODT 4 MG TAB PO PRN (15:29)
[2023-09-03] MEDS ORDERED: Furosemide 20 MG TAB PO SCH (16:15)
[2023-09-03 16:54] LABS: Bacteria/HPF None Seen HPF (None Seen); Bilirubin Negative (Negative); Blood, Urine Negative (Negative); CAUTI Indications for Culture Alt mental st,lethar; Clarity Clear (Clear); Glucose, Urine (Dipstick) Greater than 1000 mg/dL (Negative); Ketone, Urine Negative (Negative); Leukocyte Negative Leu/uL (Negative); Nitrite Negative (Negative); Protein, Urine (Dipstick) 30 mg/dL (Neg-Trace); RBC/HPF 0-3 HPF (0-3); Specific Gravity, Urine 1.022 (1.002-1.036); Squamous Epithelial None Seen HPF (0-3); Urobilinogen Normal mg/dL (Less than 2); WBC/HPF 0-3 HPF (0-3)
[2023-09-03 16:55] LABS: Urine Culture Reflex No No
[2023-09-03 18:36] VITALS: BMI 27.0
[2023-09-03 19:24] LABS: Troponin I 0.135 ng/mL (< 0.028)
[2023-09-03] MEDS: Acetaminophen 325 MG TAB PO PRN (20:30)
[2023-09-03] MEDS ORDERED: Apixaban 5 MG TAB PO SCH (21:00)
[2023-09-03] MEDS: Mirabegron ER 25 MG ER.TAB PO SCH (21:19)
[2023-09-03 22:30] LABS: Troponin I 0.168 ng/mL (< 0.028)
[2023-09-04] MEDS: traMADol HCl 50 MG TAB PO PRN ×4 (01:20→23:37)
[2023-09-04] MEDS: Melatonin 3 MG TAB PO PRN (02:02)
[2023-09-04] MEDS: Morphine 2 MG/ML VIAL SLOW IVP PRN ×4 (03:11→20:12)
[2023-09-04] MEDS: Acetaminophen 325 MG TAB PO PRN ×3 (03:12→21:02)
[2023-09-04 04:39] LABS: Hematocrit 27.8 % (42.0-52.0); Hemoglobin 9.3 g/dL (14.0-18.0); Mean Corpuscular HGB CONC 33.5 g/dL (32.0-36.0); Mean Corpuscular Hemoglobin 31.7 pg (27.0-31.0); Mean Corpuscular Volume 94.9 fl (78.0-98.0); Platelet Count 99 10x3/uL (130-400); RBC Distribution Width 15.7 % (11.5-14.5); Red Blood Cell (RBC) Count 2.93 mill/uL (4.70-6.10); White Blood Cell (WBC) Count 5.2 10x3/uL (4.8-10.8)
[2023-09-04 04:51] LABS: Manual Diff?? YES
[2023-09-04 04:52] LABS: Delete Auto Diff?? YES
[2023-09-04 05:27] LABS: ALT (SGPT) 18 U/L (8-55); AST (SGOT) 17 U/L (5-34); Albumin 3.5 g/dL (3.4-4.8); Alkaline Phosphatase 90 U/L (40-110); Anion Gap 13 mmol/L (10-20); BUN (Urea Nitrogen) 19 mg/dL (8.4-25.7); Calc. Creatinine Clearance 56 mL/min (70-130); Calcium 7.6 mg/dL (7.8-10.44); Carbon Dioxide 22 mmol/L (23-31); Chloride 107 mmol/L (98-107); Estimated GFR 51; Globulin 2.1 g/dL (2.4-3.5); Glucose 88 mg/dL (83-110); Potassium 3.3 mmol/L (3.5-5.1); Protein, Total 5.6 g/dL (5.8-8.1); Sodium 139 mmol/L (136-145)
[2023-09-04 06:47] LABS: Band 6 % (5-11); Eosinophils 8 % (0-10); Large Platelets SLIGHT (None Seen); Lymphocytes 8 % (21-51); Monocytes 7 % (0-10); Neutrophil 71 % (42-75); Smudge Cells MARKED
[2023-09-04 06:48] LABS: Anisocytosis SLIGHT = 6-15 cells (100X) (0-5/hpf)
[2023-09-04 06:49] LABS: Ovalocytes SLIGHT = 2-5 cells (100X) (0-1/hpf); Tear Drops SLIGHT = 2-5 cells (100X) (0-1/hpf)
[2023-09-04] MEDS ORDERED: Furosemide 20 MG TAB PO SCH (09:00)
[2023-09-04] MEDS ORDERED: Amiodarone 200 MG TAB PO SCH (09:00)
[2023-09-04] MEDS: Empagliflozin 10 MG TAB PO SCH (09:09)
[2023-09-04] MEDS ORDERED: Potassium Chloride 20 MEQ TAB PO SCH (12:00)
[2023-09-04] MEDS ORDERED: Polyethylene Glycol 3350 17 GM Packet PO PRN (13:06)
[2023-09-04] MEDS: Docusate 100 MG CAP PO PRN (14:45)
[2023-09-04] MEDS ORDERED: Glucagon 1 MG/ML KIT IM PRN (14:56)
[2023-09-04] MEDS ORDERED: HumaLOG 300 UNITS/3 ML VIAL SC PRN (14:56)
[2023-09-04] MEDS ORDERED: Dextrose 5% in Water 1,000 ML IV PRN (14:56)
[2023-09-04] MEDS ORDERED: Dextrose 50% Abboject 50 ML SYRINGE SLOW IVP PRN (14:56)
[2023-09-04] MEDS: Calcium Carbonate 500 MG ChewTAB PO PRN (19:41)
[2023-09-04] MEDS: Senokot S 8.6-50 MG TAB PO PRN (19:41)
[2023-09-04] MEDS: Ondansetron PF 4 MG/2 ML Vial IVP PRN (20:12)
[2023-09-04] MEDS ORDERED: Tamsulosin HCl 0.4 MG CAP PO SCH (21:00)
[2023-09-04] MEDS: Tamsulosin HCl 0.4 MG CAP PO SCH (21:01)
[2023-09-04] MEDS: Magnesium Oxide 400 MG TAB PO SCH (21:01)
[2023-09-04] MEDS: Atorvastatin Calcium 10 MG TAB PO SCH (21:01)
[2023-09-04] MEDS: valACYclovir 500 MG TAB PO SCH (21:01)
[2023-09-04] MEDS: Mirabegron ER 25 MG ER.TAB PO SCH (21:02)
[2023-09-05] MEDS: Morphine 2 MG/ML VIAL SLOW IVP PRN ×2 (00:45→09:08)
[2023-09-05 06:06] LABS: #Basophils 0.1 thou/uL (0.0-0.2); #Eosinphils 0.4 thou/uL (0.0-0.7); #Monocytes 0.9 thou/uL (0.11-0.59); #Neutrophils 4.5 thou/uL (1.40-6.50); %Basophils 1.1 % (0.0-1.0); %Eosinophils 6.2 % (0.0-10.0); %Lymphocytes 7.7 % (21.0-51.0); %Monocytes 14.2 % (0.0-10.0); %Neutrophils 69.1 % (42.0-75.0); Hematocrit 29.9 % (42.0-52.0); Hemoglobin 9.9 g/dL (14.0-18.0); Mean Corpuscular HGB CONC 33.1 g/dL (32.0-36.0); Mean Corpuscular Hemoglobin 31.9 pg (27.0-31.0); Mean Corpuscular Volume 96.5 fl (78.0-98.0); Platelet Count 97 10x3/uL (130-400); RBC Distribution Width 15.9 % (11.5-14.5); White Blood Cell (WBC) Count 6.5 10x3/uL (4.8-10.8)
[2023-09-05 06:17] LABS: INR-International Normal Ratio 1.3; Prothrombin Time 16.6 sec (12.0-14.7)
[2023-09-05] MEDS: Acetaminophen 325 MG TAB PO PRN (06:30)
[2023-09-05 06:32] LABS: Anion Gap 14 mmol/L (10-20); BUN (Urea Nitrogen) 20 mg/dL (8.4-25.7); Calc. Creatinine Clearance 59 mL/min (70-130); Calcium 8.1 mg/dL (7.8-10.44); Carbon Dioxide 24 mmol/L (23-31); Chloride 105 mmol/L (98-107); Estimated GFR 53; Glucose 93 mg/dL (83-110); Magnesium 1.8 mg/dL (1.6-2.6); Potassium 3.7 mmol/L (3.5-5.1); Sodium 139 mmol/L (136-145)
[2023-09-05] MEDS: Ondansetron PF 4 MG/2 ML Vial IVP PRN ×2 (09:07→20:39)
[2023-09-05] MEDS: Calcitriol 0.25 MCG CAP PO SCH (09:08)
[2023-09-05] MEDS: Empagliflozin 10 MG TAB PO SCH (09:08)
[2023-09-05] MEDS: Magnesium Oxide 400 MG TAB PO SCH ×2 (09:08→20:45)
[2023-09-05] MEDS: Docusate 100 MG CAP PO PRN (09:08)
[2023-09-05] MEDS ORDERED: oxyCODONE 5 MG TAB PO PRN (10:32)
[2023-09-05] MEDS ORDERED: Polyethylene Glycol 3350 17 GM Packet PO SCH (10:45)
[2023-09-05] MEDS ORDERED: Iopamidol-370 76% 500 ML MDV (1 ML CHARGE) ONE (13:20)
[2023-09-05] MEDS: Calcium Carbonate 500 MG ChewTAB PO PRN (14:04)
[2023-09-05] MEDS: Acetaminophen 500 MG TAB PO SCH ×2 (14:04→20:43)
[2023-09-05] MEDS ORDERED: Simethicone Chewable 80 MG TAB PO PRN (20:16)
[2023-09-05] MEDS ORDERED: Fleet Saline Enema 133 ML BOT PR SCH (20:30)
[2023-09-05] MEDS ORDERED: Magnesium Citrate 300 ML BOT PO SCH (20:30)
[2023-09-05] MEDS: Tamsulosin HCl 0.4 MG CAP PO SCH (20:43)
[2023-09-05] MEDS: Atorvastatin Calcium 10 MG TAB PO SCH (20:45)
[2023-09-05] MEDS: Mirabegron ER 25 MG ER.TAB PO SCH (20:56)
[2023-09-05] MEDS: valACYclovir 500 MG TAB PO SCH (20:56)
[2023-09-06] MEDS ORDERED: Metoprolol Tartrate 5 MG/5 ML VIAL IVP SCH (02:30)
[2023-09-06] MEDS ORDERED: Sodium Chloride 0.9% 500 ML IV SCH (02:45)
[2023-09-06 04:51] LABS: Hematocrit 30.7 % (42.0-52.0); Hemoglobin 10.1 g/dL (14.0-18.0); Mean Corpuscular HGB CONC 32.9 g/dL (32.0-36.0); Mean Corpuscular Hemoglobin 31.4 pg (27.0-31.0); Mean Corpuscular Volume 95.3 fl (78.0-98.0); Platelet Count 100 10x3/uL (130-400); RBC Distribution Width 15.8 % (11.5-14.5); Red Blood Cell (RBC) Count 3.22 mill/uL (4.70-6.10); White Blood Cell (WBC) Count 7.7 10x3/uL (4.8-10.8)
[2023-09-06 05:20] LABS: ALT (SGPT) 12 U/L (8-55); AST (SGOT) 12 U/L (5-34); Albumin 3.8 g/dL (3.4-4.8); Alkaline Phosphatase 92 U/L (40-110); Anion Gap 18 mmol/L (10-20); BUN (Urea Nitrogen) 30 mg/dL (8.4-25.7); Bilirubin, Total 1.4 mg/dL (0.2-1.2); Calc. Creatinine Clearance 41 mL/min (70-130); Calcium 7.8 mg/dL (7.8-10.44); Carbon Dioxide 24 mmol/L (23-31); Chloride 100 mmol/L (98-107); Delete Auto Diff?? YES; Estimated GFR 35; Globulin 2.7 g/dL (2.4-3.5); Glucose 132 mg/dL (83-110); Manual Diff?? YES; Potassium 4.2 mmol/L (3.5-5.1); Protein, Total 6.5 g/dL (5.8-8.1); Sodium 138 mmol/L (136-145)
[2023-09-06] MEDS ORDERED: Sodium Chloride 0.9% 1,000 ML IV SCH (05:30)
[2023-09-06 07:42] LABS: Band 45 % (5-11); CellaVision Operator ID LAB.GE; Eosinophils 2 % (0-10); Large Platelets 8.5 % (0-5); Lymphocytes 5 % (21-51); Metamyelocyte 5 % (0-0); Monocytes 12 % (0-10); Neutrophil 31 % (42-75); Platelet Adequacy Comment Platelets Decreased; Polychromasia SLIGHT = 2-3 cells HPF (0-2); Schistocytes SLIGHT = 2-5 cells HPF (0-1); Total Cell Count 106
[2023-09-06] MEDS: Calcitriol 0.25 MCG CAP PO SCH (08:10)
[2023-09-06] MEDS: Acetaminophen 500 MG TAB PO SCH ×3 (08:10→21:44)
[2023-09-06] MEDS: Polyethylene Glycol 3350 17 GM Packet PO SCH (08:11)
[2023-09-06] MEDS: Magnesium Oxide 400 MG TAB PO SCH ×2 (08:11→21:44)
[2023-09-06] MEDS: Sodium Chloride 0.9% 1,000 ML IV SCH ×2 (15:27→21:00)
[2023-09-06] MEDS: Melatonin 3 MG TAB PO PRN (21:43)
[2023-09-06] MEDS: Mirabegron ER 25 MG ER.TAB PO SCH (21:43)
[2023-09-06] MEDS: Atorvastatin Calcium 10 MG TAB PO SCH (21:43)
[2023-09-06] MEDS: Senokot S 8.6-50 MG TAB PO PRN (21:43)
[2023-09-06] MEDS: Tamsulosin HCl 0.4 MG CAP PO SCH (21:44)
[2023-09-06] MEDS: Ondansetron PF 4 MG/2 ML Vial IVP PRN (21:44)
[2023-09-06] MEDS: valACYclovir 500 MG TAB PO SCH (21:45)
[2023-09-07 03:49] LABS: #Basophils 0.1 thou/uL (0.0-0.2); #Eosinphils 0.3 thou/uL (0.0-0.7); #Neutrophils 3.5 thou/uL (1.40-6.50); %Basophils 1.3 % (0.0-1.0); %Eosinophils 6.4 % (0.0-10.0); %Lymphocytes 8.8 % (21.0-51.0); %Monocytes 17.8 % (0.0-10.0); %Neutrophils 65.1 % (42.0-75.0); Hematocrit 25.1 % (42.0-52.0); Hemoglobin 8.3 g/dL (14.0-18.0); Mean Corpuscular HGB CONC 33.1 g/dL (32.0-36.0); Mean Corpuscular Hemoglobin 31.9 pg (27.0-31.0); Mean Corpuscular Volume 96.5 fl (78.0-98.0); Mean Platelet Volume 13.8 fL (7.4-10.4); Platelet Count 126 10x3/uL (130-400); RBC Distribution Width 15.9 % (11.5-14.5); White Blood Cell (WBC) Count 5.3 10x3/uL (4.8-10.8)
[2023-09-07] MEDS: Sodium Chloride 0.9% 1,000 ML IV SCH (04:06)
[2023-09-07 04:13] LABS: Anion Gap 15 mmol/L (10-20); BUN (Urea Nitrogen) 37 mg/dL (8.4-25.7); Calc. Creatinine Clearance 54 mL/min (70-130); Carbon Dioxide 22 mmol/L (23-31); Chloride 108 mmol/L (98-107); Estimated GFR 48; Glucose 77 mg/dL (83-110); Potassium 3.2 mmol/L (3.5-5.1); Sodium 142 mmol/L (136-145)
[2023-09-07 04:21] LABS: Calcium 6.9 mg/dL (7.8-10.44)
[2023-09-07] MEDS ORDERED: Electrolyte Replacement Protocol 1 EACH FS SCH (05:15)
[2023-09-07] MEDS ORDERED: Calcium Chloride 13.6 MEQ in Sodium Chloride 0.9% 100 ML IVPB SCH (05:30)
[2023-09-07] MEDS ORDERED: Potassium Chloride 20 MEQ in Premix 1 BAG IVPB SCH (08:00)
[2023-09-07] MEDS: Polyethylene Glycol 3350 17 GM Packet PO SCH (08:37)
[2023-09-07] MEDS: Magnesium Oxide 400 MG TAB PO SCH ×2 (08:38→20:30)
[2023-09-07] MEDS: Acetaminophen 500 MG TAB PO SCH ×3 (08:38→20:31)
[2023-09-07] MEDS: Calcitriol 0.25 MCG CAP PO SCH (08:38)
[2023-09-07] MEDS ORDERED: Sodium Chloride 0.9% 1,000 ML IV SCH (09:36)
[2023-09-07] MEDS ORDERED: Bisacodyl 10 MG SUPP PR PRN (09:46)
[2023-09-07] MEDS ORDERED: Potassium Chloride 40 MEQ in Sodium Chloride 0.9% 500 ML IVPB SCH (10:00)
[2023-09-07] MEDS ORDERED: Bisacodyl 10 MG SUPP PR SCH (11:30)
[2023-09-07] MEDS ORDERED: Metoprolol Tartrate 25 MG TAB PO SCH (11:45)
[2023-09-07] MEDS ORDERED: Potassium Chloride 20 MEQ TAB PO SCH (12:30)
[2023-09-07] MEDS: Senokot S 8.6-50 MG TAB PO PRN (12:57)
[2023-09-07] MEDS: Bacitracin 1 PK TOP SCH ×2 (15:26→20:32)
[2023-09-07 18:37] LABS: Potassium 3.9 mmol/L (3.5-5.1)
[2023-09-07] MEDS: Atorvastatin Calcium 10 MG TAB PO SCH (20:30)
[2023-09-07] MEDS: Metoprolol Tartrate 25 MG TAB PO SCH (20:32)
[2023-09-07] MEDS: Tamsulosin HCl 0.4 MG CAP PO SCH (20:32)
[2023-09-07] MEDS: valACYclovir 500 MG TAB PO SCH (20:33)
[2023-09-07] MEDS: Mirabegron ER 25 MG ER.TAB PO SCH (20:33)
[2023-09-08 04:08] LABS: #Basophils 0.1 thou/uL (0.0-0.2); #Eosinphils 0.3 thou/uL (0.0-0.7); #Neutrophils 3.5 thou/uL (1.40-6.50); %Basophils 1.3 % (0.0-1.0); %Eosinophils 6.4 % (0.0-10.0); %Lymphocytes 7.2 % (21.0-51.0); %Monocytes 18.1 % (0.0-10.0); %Neutrophils 66.4 % (42.0-75.0); Hematocrit 25.2 % (42.0-52.0); Hemoglobin 8.2 g/dL (14.0-18.0); Mean Corpuscular HGB CONC 32.5 g/dL (32.0-36.0); Mean Corpuscular Hemoglobin 31.5 pg (27.0-31.0); Mean Corpuscular Volume 96.9 fl (78.0-98.0); Mean Platelet Volume 13.1 fL (7.4-10.4); RBC Distribution Width 16.1 % (11.5-14.5); White Blood Cell (WBC) Count 5.3 10x3/uL (4.8-10.8)
[2023-09-08 04:24] LABS: Anion Gap 10 mmol/L (10-20); BUN (Urea Nitrogen) 29 mg/dL (8.4-25.7); Calc. Creatinine Clearance 67 mL/min (70-130); Calcium 7.7 mg/dL (7.8-10.44); Carbon Dioxide 23 mmol/L (23-31); Chloride 109 mmol/L (98-107); Estimated GFR 63; Glucose 80 mg/dL (83-110); Potassium 3.4 mmol/L (3.5-5.1); Sodium 139 mmol/L (136-145)
[2023-09-08 04:58] LABS: Platelet Count 111 10x3/uL (130-400)
[2023-09-08] MEDS ORDERED: Potassium Chloride 20 MEQ TAB PO SCH (08:00)
[2023-09-08] MEDS ORDERED: Potassium Chloride 20 MEQ in Premix 1 BAG IVPB SCH (08:00)
[2023-09-08] MEDS: Polyethylene Glycol 3350 17 GM Packet PO SCH (08:29)
[2023-09-08] MEDS: Bacitracin 1 PK TOP SCH ×3 (08:30→20:22)
[2023-09-08] MEDS: Metoprolol Tartrate 25 MG TAB PO SCH ×2 (08:30→20:22)
[2023-09-08] MEDS: Magnesium Oxide 400 MG TAB PO SCH ×2 (08:30→20:22)
[2023-09-08] MEDS: Calcitriol 0.25 MCG CAP PO SCH (08:30)
[2023-09-08] MEDS: Acetaminophen 500 MG TAB PO SCH ×3 (08:30→20:21)
[2023-09-08 12:34] LABS: Potassium 3.9 mmol/L (3.5-5.1)
[2023-09-08] MEDS: Mirabegron ER 25 MG ER.TAB PO SCH (20:21)
[2023-09-08] MEDS: Atorvastatin Calcium 10 MG TAB PO SCH (20:22)
[2023-09-08] MEDS: Tamsulosin HCl 0.4 MG CAP PO SCH (20:22)
[2023-09-08] MEDS: valACYclovir 500 MG TAB PO SCH (20:22)
[2023-09-09 04:05] LABS: Hematocrit 25.6 % (42.0-52.0); Hemoglobin 8.3 g/dL (14.0-18.0); Manual Diff?? YES; Mean Corpuscular HGB CONC 32.4 g/dL (32.0-36.0); Mean Corpuscular Hemoglobin 32.3 pg (27.0-31.0); Mean Corpuscular Volume 99.6 fl (78.0-98.0); Mean Platelet Volume 12.9 fL (7.4-10.4); Platelet Count 111 10x3/uL (130-400); RBC Distribution Width 16.1 % (11.5-14.5); Red Blood Cell (RBC) Count 2.57 mill/uL (4.70-6.10); White Blood Cell (WBC) Count 3.9 10x3/uL (4.8-10.8)
[2023-09-09 04:09] LABS: Delete Auto Diff?? YES
[2023-09-09 04:46] LABS: Anisocytosis SLIGHT = 6-15 cells HPF (0-5); Band 4 % (5-11); CellaVision Operator ID lab.abc; Eosinophils 1 % (0-10); Large Platelets 11.3 % (0-5); Lymphocytes 9 % (21-51); Monocytes 10 % (0-10); Neutrophil 73 % (42-75); Platelet Adequacy Comment Platelets Decreased; Smudge Cells 8.5 %; Tear Drops SLIGHT = 2-5 cells HPF (0-1); Total Cell Count 106
[2023-09-09 07:39] LABS: Anion Gap 14 mmol/L (10-20); BUN (Urea Nitrogen) 19 mg/dL (8.4-25.7); Calc. Creatinine Clearance 70 mL/min (70-130); Calcium 7.9 mg/dL (7.8-10.44); Carbon Dioxide 19 mmol/L (23-31); Chloride 110 mmol/L (98-107); Estimated GFR 67; Glucose 85 mg/dL (83-110); Potassium 3.3 mmol/L (3.5-5.1); Sodium 140 mmol/L (136-145)
[2023-09-09] MEDS: Calcitriol 0.25 MCG CAP PO SCH (08:44)
[2023-09-09] MEDS: Acetaminophen 500 MG TAB PO SCH ×3 (08:44→20:32)
[2023-09-09] MEDS: Magnesium Oxide 400 MG TAB PO SCH ×2 (08:45→20:34)
[2023-09-09] MEDS: Metoprolol Tartrate 25 MG TAB PO SCH ×2 (08:45→20:34)
[2023-09-09] MEDS: Bacitracin 1 PK TOP SCH ×3 (08:45→20:31)
[2023-09-09] MEDS: Polyethylene Glycol 3350 17 GM Packet PO SCH (08:46)
[2023-09-09] MEDS ORDERED: Potassium Chloride 10 MEQ in Premix 1 BAG IVPB SCH (10:00)
[2023-09-09] MEDS ORDERED: Gentamicin 80 MG/2 ML VIAL ONE (14:29)
[2023-09-09] MEDS ORDERED: Lidocaine 1% (PF) 30 ML VIAL ONE (14:30)
[2023-09-09] MEDS ORDERED: CEFAZOLIN 2 GM VIAL ONE (14:30)
[2023-09-09] MEDS ORDERED: fentaNYL 50 mcg/mL 1 mL Vial ONE (17:05)
[2023-09-09] MEDS ORDERED: Midazolam HCl 2 mg/2 ml Vial ONE (17:06)
[2023-09-09] MEDS ORDERED: Famotidine/PF 20 mg/2ml Vial ONE (17:06)
[2023-09-09] MEDS ORDERED: Propofol 500 MG/50 ML VIAL ONE (17:06)
[2023-09-09] MEDS ORDERED: Ondansetron PF 4 MG/2 ML Vial ONE (17:23)
[2023-09-09] MEDS ORDERED: Lidocaine 1% PF 5 ML VIAL ONE (17:23)
[2023-09-09] MEDS: Mirabegron ER 25 MG ER.TAB PO SCH (20:32)
[2023-09-09] MEDS: Cephalexin 250 MG CAP PO SCH (20:34)
[2023-09-09] MEDS: Amiodarone 200 MG TAB PO SCH (20:34)
[2023-09-09] MEDS: Atorvastatin Calcium 10 MG TAB PO SCH (20:34)
[2023-09-09] MEDS: Tamsulosin HCl 0.4 MG CAP PO SCH (20:34)
[2023-09-09] MEDS: valACYclovir 500 MG TAB PO SCH (20:34)
[2023-09-09] MEDS ORDERED: Cephalexin 250 MG CAP PO SCH (21:00)
[2023-09-09] MEDS: Melatonin 3 MG TAB PO PRN (22:32)
[2023-09-10 06:33] LABS: Hematocrit 25.7 % (42.0-52.0); Hemoglobin 8.4 g/dL (14.0-18.0); Manual Diff?? YES; Mean Corpuscular HGB CONC 32.7 g/dL (32.0-36.0); Mean Corpuscular Hemoglobin 31.9 pg (27.0-31.0); Mean Corpuscular Volume 97.7 fl (78.0-98.0); Mean Platelet Volume 12.6 fL (7.4-10.4); Platelet Count 125 10x3/uL (130-400); RBC Distribution Width 16.3 % (11.5-14.5); Red Blood Cell (RBC) Count 2.63 mill/uL (4.70-6.10); White Blood Cell (WBC) Count 3.3 10x3/uL (4.8-10.8)
[2023-09-10 06:35] LABS: Anion Gap 13 mmol/L (10-20); BUN (Urea Nitrogen) 16 mg/dL (8.4-25.7); Calc. Creatinine Clearance 83 mL/min (70-130); Calcium 7.9 mg/dL (7.8-10.44); Carbon Dioxide 22 mmol/L (23-31); Chloride 109 mmol/L (98-107); Delete Auto Diff?? YES; Estimated GFR 83; Glucose 77 mg/dL (83-110); Potassium 3.2 mmol/L (3.5-5.1); Sodium 141 mmol/L (136-145)
[2023-09-10] MEDS ORDERED: Potassium Chloride 20 MEQ TAB PO SCH (08:00)
[2023-09-10] MEDS: Acetaminophen 500 MG TAB PO SCH ×3 (08:04→20:12)
[2023-09-10] MEDS: Calcitriol 0.25 MCG CAP PO SCH (08:04)
[2023-09-10] MEDS: Amiodarone 200 MG TAB PO SCH ×3 (08:04→20:12)
[2023-09-10] MEDS: Magnesium Oxide 400 MG TAB PO SCH ×2 (08:04→20:12)
[2023-09-10] MEDS: Polyethylene Glycol 3350 17 GM Packet PO SCH (08:05)
[2023-09-10] MEDS: Bacitracin 1 PK TOP SCH ×3 (08:05→20:13)
[2023-09-10] MEDS: Cephalexin 250 MG CAP PO SCH ×3 (08:05→20:13)
[2023-09-10] MEDS: Metoprolol Tartrate 50 MG TAB PO SCH ×2 (08:09→20:12)
[2023-09-10 11:33] LABS: Anisocytosis SLIGHT = 6-15 cells HPF (0-5); Band 6 % (5-11); CellaVision Operator ID LAB.GE; Eosinophils 2 % (0-10); Giant Platelets 1.9 % (0-5); Large Platelets 8.8 % (0-5); Lymphocytes 7 % (21-51); Monocytes 17 % (0-10); Neutrophil 62 % (42-75); Ovalocytes SLIGHT = 2-5 cells HPF (0-1); Platelet Adequacy Comment Platelets Decreased; Polychromasia SLIGHT = 2-3 cells HPF (0-2); Tear Drops SLIGHT = 2-5 cells HPF (0-1); Total Cell Count 102
[2023-09-10] MEDS: Tamsulosin HCl 0.4 MG CAP PO SCH (20:12)
[2023-09-10] MEDS: Atorvastatin Calcium 10 MG TAB PO SCH (20:12)
[2023-09-10] MEDS: valACYclovir 500 MG TAB PO SCH (20:12)
[2023-09-10] MEDS: Mirabegron ER 25 MG ER.TAB PO SCH (20:13)
[2023-09-11 04:57] LABS: Hematocrit 25.1 % (42.0-52.0); Hemoglobin 8.2 g/dL (14.0-18.0); Manual Diff?? YES; Mean Corpuscular HGB CONC 32.7 g/dL (32.0-36.0); Mean Corpuscular Hemoglobin 31.5 pg (27.0-31.0); Mean Corpuscular Volume 96.5 fl (78.0-98.0); Platelet Count 129 10x3/uL (130-400); RBC Distribution Width 16.1 % (11.5-14.5); White Blood Cell (WBC) Count 3.5 10x3/uL (4.8-10.8)
[2023-09-11 05:00] LABS: Delete Auto Diff?? YES
[2023-09-11 05:28] LABS: Anisocytosis SLIGHT = 6-15 cells HPF (0-5); Band 1 % (5-11); CellaVision Operator ID lab.abc; Eosinophils 3 % (0-10); Large Platelets 15.7 % (0-5); Lymphocytes 3 % (21-51); Monocytes 11 % (0-10); Neutrophil 78 % (42-75); Platelet Adequacy Comment Platelets Normal; Polychromasia SLIGHT = 2-3 cells HPF (0-2); Reactive Lymphocytes 1 % (0-10); Tear Drops SLIGHT = 2-5 cells HPF (0-1); Total Cell Count 102
[2023-09-11 05:39] LABS: Anion Gap 14 mmol/L (10-20); BUN (Urea Nitrogen) 18 mg/dL (8.4-25.7); Calc. Creatinine Clearance 69 mL/min (70-130); Calcium 8.1 mg/dL (7.8-10.44); Carbon Dioxide 21 mmol/L (23-31); Chloride 107 mmol/L (98-107); Estimated GFR 67; Glucose 107 mg/dL (83-110); Potassium 3.5 mmol/L (3.5-5.1); Sodium 138 mmol/L (136-145)
[2023-09-11] MEDS ORDERED: Potassium Chloride 20 MEQ TAB PO SCH (08:00)
[2023-09-11] MEDS ORDERED: Amiodarone 200 MG TAB PO SCH ×2 (09:00)
[2023-09-11] MEDS ORDERED: Empagliflozin 25 MG TAB PO SCH (09:00)
[2023-09-11] MEDS: Acetaminophen 500 MG TAB PO SCH (09:13)
[2023-09-11] MEDS: Calcitriol 0.25 MCG CAP PO SCH (09:14)
[2023-09-11] MEDS: Cephalexin 250 MG CAP PO SCH (09:14)
[2023-09-11] MEDS: Metoprolol Tartrate 50 MG TAB PO SCH (09:15)
[2023-09-11] MEDS: Magnesium Oxide 400 MG TAB PO SCH (09:15)
[2023-09-11] MEDS: Bacitracin 1 PK TOP SCH (09:15)
[2023-09-11] MEDS: Polyethylene Glycol 3350 17 GM Packet PO SCH (09:16)
[2023-09-11 12:00] VITALS: BP 123/66; TEMP 98.2
[2023-09-11] MEDS ORDERED: Apixaban 5 MG TAB PO SCH (21:00)
[2023-09-13] MEDS ORDERED: Dexamethasone 4 MG TAB PO SCH (09:00)
== END 2023-09-11 13:07 | disposition home or self-care (01) | DRG 242 ==
LOC: ERS 11:45 → ERHOLD 14:52 → IMCU/EMU 17:22 → 2NO 09-10 22:08
PROVIDERS: ADMIT Student in an Organized Health Care Education/Training Program; ATTEND Hospitalist
PROC: 0D9670Z Drainage of Stomach with Drainage Device, Via Natural or Artificial Opening (ICD-10-PCS; principal; 2023-09-03)
PROC: 0JH606Z Insertion of Pacemaker, Dual Chamber into Chest Subcutaneous Tissue and Fascia, Open Approach (ICD-10-PCS; 2023-09-09)
PROC: 02H63JZ Insertion of Pacemaker Lead into Right Atrium, Percutaneous Approach (ICD-10-PCS; 2023-09-09)
PROC: 02HL3JZ Insertion of Pacemaker Lead into Left Ventricle, Percutaneous Approach (ICD-10-PCS; 2023-09-09)
DX: I49.5 Sick sinus syndrome (principal); I21.A1 Myocardial infarction type 2; C90.00 Multiple myeloma not having achieved remission; I13.0 Hypertensive heart and chronic kidney disease with heart failure and stage 1 through stage 4 chronic kidney disease, or unspecified chronic kidney disease; I50.32 Chronic diastolic (congestive) heart failure; K56.7 Ileus, unspecified; N17.9 Acute kidney failure, unspecified; K56.609 Unspecified intestinal obstruction, unspecified as to partial versus complete obstruction; E87.20 Acidosis, unspecified; I48.92 Unspecified atrial flutter; E11.22 Type 2 diabetes mellitus with diabetic chronic kidney disease; N18.30 Chronic kidney disease, stage 3 unspecified; E78.5 Hyperlipidemia, unspecified; D63.1 Anemia in chronic kidney disease; C61 Malignant neoplasm of prostate; D63.8 Anemia in other chronic diseases classified elsewhere; E87.6 Hypokalemia; S82.51XA Displaced fracture of medial malleolus of right tibia, initial encounter for closed fracture; I48.91 Unspecified atrial fibrillation; E11.40 Type 2 diabetes mellitus with diabetic neuropathy, unspecified; N18.31 Chronic kidney disease, stage 3a; Z82.49 Family history of ischemic heart disease and other diseases of the circulatory system; Z88.0 Allergy status to penicillin; Z98.890 Other specified postprocedural states; Z79.01 Long term (current) use of anticoagulants; Z79.899 Other long term (current) drug therapy
CPT/HCPCS: 29515; 33208; 36415; 36416; 71045; 74018; 74177; 80048; 80053; 80162; 81001; 83690; 83735; 83880; 84484; 85025; 85610; 90471; 90715; 93005; 93010; 93306; 97139; C1785; C1898; J1580; J1650; J2001; J2250; J2272; J2405; J2704; J3010; J3480; J3490; J7030; J7050; Q9967; S0028

== ENCOUNTER 2023-10-02 17:56 | Outpatient (CLI) | payer BC, MEDICARE | END 2023-10-02 17:57 | disposition home or self-care (01) | LOC: SJX 17:56 | PROVIDERS: ATTEND Family Medicine | DX: S29.9XXA Unspecified injury of thorax, initial encounter (principal); S22.42XA Multiple fractures of ribs, left side, initial encounter for closed fracture; J98.11 Atelectasis; J98.4 Other disorders of lung ==

== ENCOUNTER 2023-11-06 08:49 | Inpatient (IN) | payer BC, MEDICARE ==
[2023-11-06] MEDS ORDERED: Ondansetron PF 4 MG/2 ML Vial ONE (09:14)
[2023-11-06 09:16] LABS: Hematocrit 35.2 % (42.0-52.0); Hemoglobin 11.8 g/dL (14.0-18.0); Manual Diff?? YES; Mean Corpuscular HGB CONC 33.5 g/dL (32.0-36.0); Mean Corpuscular Hemoglobin 32.9 pg (27.0-31.0); Mean Corpuscular Volume 98.1 fl (78.0-98.0); Platelet Count 135 10x3/uL (130-400); RBC Distribution Width 18.9 % (11.5-14.5); Red Blood Cell (RBC) Count 3.59 mill/uL (4.70-6.10); White Blood Cell (WBC) Count 7.8 10x3/uL (4.8-10.8)
[2023-11-06 09:17] LABS: Delete Auto Diff?? YES
[2023-11-06 10:01] LABS: Anisocytosis MARKED = >30 cells HPF (0-5); Band 19 % (5-11); CellaVision Operator ID LAB.KW3; Eosinophils 5 % (0-10); Large Platelets 35.6 % (0-5); Lymphocytes 5 % (21-51); Macrocytosis MODERATE=16-30 cells HPF (0-5); Monocytes 9 % (0-10); Neutrophil 59 % (42-75); Platelet Adequacy Comment Platelets Normal; Polychromasia SLIGHT = 2-3 cells HPF (0-2); Schistocytes SLIGHT = 2-5 cells HPF (0-1); Total Cell Count 101
[2023-11-06 11:03] LABS: ALT (SGPT) 20 U/L (8-55); AST (SGOT) 24 U/L (5-34); Alkaline Phosphatase 81 U/L (40-110); Anion Gap 21 mmol/L (10-20); BUN (Urea Nitrogen) 32 mg/dL (8.4-25.7); Calc. Creatinine Clearance 0 mL/min (70-130); Calcium 9.4 mg/dL (7.8-10.44); Carbon Dioxide 21 mmol/L (23-31); Chloride 98 mmol/L (98-107); Estimated GFR 38; Globulin 3.2 g/dL (2.4-3.5); Glucose 178 mg/dL (83-110); Lipase 40 U/L (8-78); Potassium 3.4 mmol/L (3.5-5.1); Protein, Total 7.2 g/dL (5.8-8.1); Sodium 137 mmol/L (136-145)
[2023-11-06 11:12] LABS: Troponin I 0.075 ng/mL (< 0.028)
[2023-11-06] MEDS ORDERED: fentaNYL 50 mcg/mL 1 mL Vial ONE (12:28)
[2023-11-06] MEDS ORDERED: Metoclopramide HCl 10 MG (2 mL) VIAL ONE (12:28)
[2023-11-06] MEDS ORDERED: Iopamidol-370 76% 500 ML MDV (1 ML CHARGE) ONE (13:22)
[2023-11-06] MEDS ORDERED: Lactated Ringer's 1,000 ML IV SCH (15:15)
[2023-11-06] MEDS ORDERED: Ondansetron ODT 4 MG TAB SL PRN (15:15)
[2023-11-06] MEDS ORDERED: Ondansetron PF 4 MG/2 ML Vial IVP PRN (15:15)
[2023-11-06] MEDS ORDERED: Acetaminophen 325 MG TAB PO PRN (15:15)
[2023-11-06] MEDS ORDERED: Glucagon 1 MG/ML KIT IM PRN (16:50)
[2023-11-06] MEDS ORDERED: Dextrose 5% in Water 1,000 ML IV PRN (16:50)
[2023-11-06] MEDS ORDERED: Dextrose 50% Abboject 50 ML SYRINGE SLOW IVP PRN (16:50)
[2023-11-06] MEDS: Tamsulosin HCl 0.4 MG CAP PO SCH (20:24)
[2023-11-06] MEDS: Mirabegron ER 25 MG ER.TAB PO SCH (20:25)
[2023-11-06] MEDS: Metoprolol Tartrate 50 MG TAB PO SCH (20:25)
[2023-11-07] MEDS ORDERED: MD-Gastroview 120 ML BOT ONE (06:25)
[2023-11-07] MEDS: Sodium Chloride 0.9% 1,000 ML IV SCH (06:48)
[2023-11-07 06:55] LABS: Hemoglobin A1c 5.7 % (4.0-6.0)
[2023-11-07 07:05] LABS: #Basophils 0.1 thou/uL (0.0-0.2); #Eosinphils 0.3 thou/uL (0.0-0.7); #Monocytes 0.9 thou/uL (0.11-0.59); #Neutrophils 3.5 thou/uL (1.40-6.50); %Basophils 1.4 % (0.0-1.0); %Eosinophils 5.2 % (0.0-10.0); %Lymphocytes 7.5 % (21.0-51.0); %Monocytes 16.4 % (0.0-10.0); %Neutrophils 68.1 % (42.0-75.0); Hematocrit 30.8 % (42.0-52.0); Hemoglobin 10.1 g/dL (14.0-18.0); Mean Corpuscular HGB CONC 32.8 g/dL (32.0-36.0); Mean Corpuscular Hemoglobin 32.2 pg (27.0-31.0); Mean Corpuscular Volume 98.1 fl (78.0-98.0); Platelet Count 109 10x3/uL (130-400); RBC Distribution Width 19.1 % (11.5-14.5); Red Blood Cell (RBC) Count 3.14 mill/uL (4.70-6.10); White Blood Cell (WBC) Count 5.2 10x3/uL (4.8-10.8)
[2023-11-07 07:15] LABS: ALT (SGPT) 12 U/L (8-55); AST (SGOT) 17 U/L (5-34); Albumin 3.5 g/dL (3.4-4.8); Alkaline Phosphatase 64 U/L (40-110); Anion Gap 15 mmol/L (10-20); BUN (Urea Nitrogen) 39 mg/dL (8.4-25.7); Bilirubin, Total 0.7 mg/dL (0.2-1.2); Calc. Creatinine Clearance 41 mL/min (70-130); Calcium 8.2 mg/dL (7.8-10.44); Carbon Dioxide 24 mmol/L (23-31); Chloride 104 mmol/L (98-107); Estimated GFR 47; Globulin 2.3 g/dL (2.4-3.5); Glucose 94 mg/dL (83-110); Potassium 2.9 mmol/L (3.5-5.1); Protein, Total 5.8 g/dL (5.8-8.1); Sodium 140 mmol/L (136-145)
[2023-11-07] MEDS: Potassium Chloride 40 MEQ in Sodium Chloride 0.45% 1,000 ML IV SCH (09:27)
[2023-11-07] MEDS: Pantoprazole 40 MG VIAL IVP SCH (09:28)
[2023-11-07] MEDS: Digoxin 0.5 MG/2 ML AMP SLOW IVP SCH (09:28)
[2023-11-07] MEDS: Potassium Chloride 20 MEQ in Premix 1 BAG IVPB SCH (11:11)
[2023-11-07] MEDS: Morphine 2 MG/ML VIAL SLOW IVP PRN (15:26)
[2023-11-07 17:42] LABS: Magnesium 1.9 mg/dL (1.6-2.6); Potassium 3.3 mmol/L (3.5-5.1)
[2023-11-08 05:11] LABS: Hematocrit 30.5 % (42.0-52.0); Hemoglobin 9.9 g/dL (14.0-18.0); Manual Diff?? YES; Mean Corpuscular HGB CONC 32.5 g/dL (32.0-36.0); Mean Corpuscular Hemoglobin 32.7 pg (27.0-31.0); Mean Corpuscular Volume 100.7 fl (78.0-98.0); Platelet Count 136 10x3/uL (130-400); RBC Distribution Width 19.6 % (11.5-14.5); Red Blood Cell (RBC) Count 3.03 mill/uL (4.70-6.10); White Blood Cell (WBC) Count 4.5 10x3/uL (4.8-10.8)
[2023-11-08 05:12] LABS: Delete Auto Diff?? YES
[2023-11-08 05:24] LABS: ALT (SGPT) 11 U/L (8-55); AST (SGOT) 15 U/L (5-34); Albumin 3.3 g/dL (3.4-4.8); Alkaline Phosphatase 61 U/L (40-110); Anion Gap 15 mmol/L (10-20); BUN (Urea Nitrogen) 33 mg/dL (8.4-25.7); Bilirubin, Total 0.9 mg/dL (0.2-1.2); Calc. Creatinine Clearance 60 mL/min (70-130); Calcium 7.8 mg/dL (7.8-10.44); Carbon Dioxide 23 mmol/L (23-31); Chloride 107 mmol/L (98-107); Estimated GFR 73; Globulin 2.3 g/dL (2.4-3.5); Glucose 72 mg/dL (83-110); Potassium 3.5 mmol/L (3.5-5.1); Protein, Total 5.6 g/dL (5.8-8.1); Sodium 141 mmol/L (136-145)
[2023-11-08 06:56] LABS: Anisocytosis MODERATE=16-30 cells HPF (0-5); Band 4 % (5-11); CellaVision Operator ID lab.sh2; Eosinophils 5 % (0-10); Large Platelets 27.9 % (0-5); Lymphocytes 3 % (21-51); Macrocytosis SLIGHT = 6-15 cells HPF (0-5); Monocytes 17 % (0-10); Neutrophil 67 % (42-75); Ovalocytes MODERATE= 6-15 cells HPF (0-1); Platelet Adequacy Comment Platelets Normal; Poikilocytosis SLIGHT = 6-15 cells HPF (0-5); Polychromasia SLIGHT = 2-3 cells HPF (0-2); Smudge Cells 10.6 %; Tear Drops SLIGHT = 2-5 cells HPF (0-1); Total Cell Count 104
[2023-11-08] MEDS: Phenol 177 ML BOT PO PRN (10:30)
[2023-11-08] MEDS: D5 1/2 NS w/20 mEq KCL 1,000 ML IV SCH (15:19)
[2023-11-08] MEDS: Lactulose 20 GM (30 mL) UDCUP PO SCH (15:20)
[2023-11-08] MEDS ORDERED: Ondansetron ODT 4 MG TAB PO PRN (20:39)
[2023-11-08] MEDS: Ondansetron PF 4 MG/2 ML Vial IVP PRN (21:17)
[2023-11-09 09:13] LABS: Hematocrit 32.4 % (42.0-52.0); Hemoglobin 10.7 g/dL (14.0-18.0); Manual Diff?? YES; Mean Corpuscular Hemoglobin 32.7 pg (27.0-31.0); Mean Corpuscular Volume 99.1 fl (78.0-98.0); Mean Platelet Volume 13.4 fL (7.4-10.4); Platelet Count 162 10x3/uL (130-400); RBC Distribution Width 19.6 % (11.5-14.5); Red Blood Cell (RBC) Count 3.27 mill/uL (4.70-6.10); White Blood Cell (WBC) Count 5.9 10x3/uL (4.8-10.8)
[2023-11-09] MEDS: Bisacodyl 10 MG SUPP PR PRN (09:14)
[2023-11-09 09:32] LABS: ALT (SGPT) 11 U/L (8-55); AST (SGOT) 20 U/L (5-34); Albumin 3.3 g/dL (3.4-4.8); Alkaline Phosphatase 75 U/L (40-110); Anion Gap 16 mmol/L (10-20); BUN (Urea Nitrogen) 34 mg/dL (8.4-25.7); Bilirubin, Total 0.9 mg/dL (0.2-1.2); Calc. Creatinine Clearance 50 mL/min (70-130); Calcium 8.1 mg/dL (7.8-10.44); Carbon Dioxide 22 mmol/L (23-31); Chloride 103 mmol/L (98-107); Delete Auto Diff?? YES; Estimated GFR 59; Globulin 2.5 g/dL (2.4-3.5); Glucose 139 mg/dL (83-110); Potassium 3.9 mmol/L (3.5-5.1); Protein, Total 5.8 g/dL (5.8-8.1); Sodium 137 mmol/L (136-145)
[2023-11-09 10:42] LABS: Anisocytosis SLIGHT = 6-15 cells HPF (0-5); Band 1 % (5-11); CellaVision Operator ID LAB.NR; Elliptocytes SLIGHT = 2-5 cells HPF (0-1); Eosinophils 2 % (0-10); Large Platelets 11.5 % (0-5); Lymphocytes 6 % (21-51); Macrocytosis SLIGHT = 6-15 cells HPF (0-5); Monocytes 20 % (0-10); Neutrophil 69 % (42-75); Platelet Adequacy Comment Platelets Decreased; Poikilocytosis SLIGHT = 6-15 cells HPF (0-5); Polychromasia SLIGHT = 2-3 cells HPF (0-2); Schistocytes SLIGHT = 2-5 cells HPF (0-1); Smudge Cells 5.8 %; Total Cell Count 104; Vacuoles SLIGHT
[2023-11-09] MEDS: Mineral Oil ENEMA PR SCH (13:49)
[2023-11-09] MEDS ORDERED: Methylnaltrexone 12 MG (0.6 mL) VIAL SC SCH (17:15)
[2023-11-09] MEDS: Bisacodyl 10 MG SUPP PR SCH (18:06)
[2023-11-09] MEDS: Bisacodyl 5 MG TAB PO SCH (19:05)
[2023-11-10] MEDS: Mineral Oil ENEMA PR SCH (05:37)
[2023-11-10] MEDS: Acetaminophen 325 MG TAB PO PRN (10:07)
[2023-11-10] MEDS: Lenalidomide [Revlimid] 10 MG Capsule PO SCH (11:56)
[2023-11-10] MEDS ORDERED: PROPOFOL 20 ML ONE (14:03)
[2023-11-10] MEDS ORDERED: Rocuronium Bromide 10 MG/ML (10ML VIAL) ONE (14:04)
[2023-11-10] MEDS ORDERED: SUCCINYLCHOLINE/SOD CL,ISO/PF 200 MG/10 ML SYRINGE FS ONE (14:04)
[2023-11-10] MEDS ORDERED: Dexamethasone 4 mg/ml Vial ONE (14:04)
[2023-11-10] MEDS ORDERED: Lidocaine 1% PF 5 ML VIAL ONE (14:04)
[2023-11-10] MEDS ORDERED: Ondansetron PF 4 MG/2 ML Vial ONE (14:04)
[2023-11-10] MEDS ORDERED: Piperacillin/Tazobactam 3.375 GM VIAL ONE (14:13)
[2023-11-10] MEDS ORDERED: Sodium Chloride 0.9% 0 ML ONE (14:13)
[2023-11-10] MEDS ORDERED: PHENYLEPHRINE-NS 100 MCG/ML 10 ML SYRINGE ONE (14:38)
[2023-11-10] MEDS ORDERED: Calcium Chloride 1 GM/10 ML Abboject SYRINGE ONE (15:13)
[2023-11-10] MEDS ORDERED: Albumin 5% 250 ML ONE (15:14)
[2023-11-10] MEDS ORDERED: SUGAMMADEX SODIUM 200 MG/2 ML VIAL ONE (15:49)
[2023-11-10] MEDS ORDERED: Ondansetron HCl/PF 4 MG/2 ML Vial IVP PRN ×2 (16:07→16:52)
[2023-11-10] MEDS ORDERED: Promethazine HCl 25 MG/ML VIAL IM PRN ×2 (16:07→16:52)
[2023-11-10] MEDS ORDERED: fentaNYL 50 mcg/mL 1 mL Vial ONE ×4 (16:13→16:46)
[2023-11-10] MEDS ORDERED: HYDROmorphone 2 MG/ML VIAL SLOW IVP PRN (16:52)
[2023-11-10] MEDS ORDERED: HYDROmorphone 0.5 MG/0.5 ML SYRINGE ONE ×2 (16:57→17:07)
[2023-11-10] MEDS ORDERED: Morphine 4 MG/ML VIAL ONE (17:16)
[2023-11-10] MEDS: Morphine 4 MG/ML VIAL SLOW IVP PRN (22:53)
[2023-11-10] MEDS: Piperacillin/Tazobactam 3.375 GM in Sodium Chloride 0.9% 100 ML IVPB SCH (22:53)
[2023-11-11 04:44] LABS: Hematocrit 30.4 % (42.0-52.0); Hemoglobin 9.9 g/dL (14.0-18.0); Manual Diff?? YES; Mean Corpuscular HGB CONC 32.6 g/dL (32.0-36.0); Mean Corpuscular Volume 101.3 fl (78.0-98.0); Mean Platelet Volume 13.6 fL (7.4-10.4); Platelet Count 153 10x3/uL (130-400); RBC Distribution Width 19.2 % (11.5-14.5); White Blood Cell (WBC) Count 3.6 10x3/uL (4.8-10.8)
[2023-11-11 04:48] LABS: Delete Auto Diff?? YES
[2023-11-11 04:58] LABS: Anion Gap 12 mmol/L (10-20); BUN (Urea Nitrogen) 38 mg/dL (8.4-25.7); Calc. Creatinine Clearance 40 mL/min (70-130); Calcium 8.1 mg/dL (7.8-10.44); Carbon Dioxide 21 mmol/L (23-31); Chloride 108 mmol/L (98-107); Estimated GFR 46; Glucose 174 mg/dL (83-110); Potassium 4.2 mmol/L (3.5-5.1); Sodium 137 mmol/L (136-145)
[2023-11-11 05:15] LABS: Anisocytosis SLIGHT = 6-15 cells HPF (0-5); Band 52 % (5-11); CellaVision Operator ID LAB.CLH1; Eosinophils 4 % (0-10); Hypochromia SLIGHT = 6-15 cells HPF (0-5); Large Platelets 37.3 % (0-5); Lymphocytes 4 % (21-51); Macrocytosis SLIGHT = 6-15 cells HPF (0-5); Metamyelocyte 9 % (0-0); Monocytes 9 % (0-10); Myelocyte 2 % (0-0); Neutrophil 17 % (42-75); Platelet Adequacy Comment Platelets Normal; Polychromasia SLIGHT = 2-3 cells HPF (0-2); Promyelocytes 1 % (0-0); Reactive Lymphocytes 2 % (0-10); Tear Drops SLIGHT = 2-5 cells HPF (0-1); Total Cell Count 110
[2023-11-11] MEDS: Enoxaparin 30 MG (0.3 mL) SYRINGE SC SCH (21:25)
[2023-11-11] MEDS: Sodium Chloride 0.9% 500 ML IV SCH (22:30)
[2023-11-12] MEDS: Pantoprazole 40 MG VIAL IVP SCH (09:38)
[2023-11-12 10:18] LABS: Hematocrit 25.2 % (42.0-52.0); Manual Diff?? YES; Mean Corpuscular HGB CONC 31.7 g/dL (32.0-36.0); Mean Corpuscular Hemoglobin 32.9 pg (27.0-31.0); Mean Corpuscular Volume 103.7 fl (78.0-98.0); Mean Platelet Volume 14.1 fL (7.4-10.4); Platelet Count 109 10x3/uL (130-400); RBC Distribution Width 19.7 % (11.5-14.5); Red Blood Cell (RBC) Count 2.43 mill/uL (4.70-6.10); White Blood Cell (WBC) Count 5.2 10x3/uL (4.8-10.8)
[2023-11-12 10:25] LABS: Delete Auto Diff?? YES
[2023-11-12 11:05] LABS: Anisocytosis MARKED = >30 cells HPF (0-5); Band 38 % (5-11); Burr Cells SLIGHT = 2-5 cells HPF (0-1); CellaVision Operator ID LAB.KW3; Large Platelets 13.6 % (0-5); Macrocytosis MODERATE=16-30 cells HPF (0-5); Metamyelocyte 1 % (0-0); Monocytes 2 % (0-10); Myelocyte 2 % (0-0); Neutrophil 57 % (42-75); Platelet Adequacy Comment Platelets Decreased; Platelet Clumps 1.9 % (0-5); Polychromasia SLIGHT = 2-3 cells HPF (0-2); Schistocytes SLIGHT = 2-5 cells HPF (0-1); Total Cell Count 103
[2023-11-13 05:12] LABS: Hematocrit 24.6 % (42.0-52.0); Hemoglobin 7.9 g/dL (14.0-18.0); Manual Diff?? YES; Mean Corpuscular HGB CONC 32.1 g/dL (32.0-36.0); Platelet Count 118 10x3/uL (130-400); RBC Distribution Width 19.6 % (11.5-14.5); Red Blood Cell (RBC) Count 2.47 mill/uL (4.70-6.10); White Blood Cell (WBC) Count 5.4 10x3/uL (4.8-10.8)
[2023-11-13 05:14] LABS: Delete Auto Diff?? YES; Mean Corpuscular Volume 99.6 fl (78.0-98.0)
[2023-11-13 06:07] LABS: Band 52 % (5-11); CellaVision Operator ID LAB.CLH1; Eosinophils 2 % (0-10); Hypochromia SLIGHT = 6-15 cells HPF (0-5); Large Platelets 24.8 % (0-5); Lymphocytes 3 % (21-51); Monocytes 6 % (0-10); Neutrophil 37 % (42-75); Platelet Adequacy Comment Platelets Decreased; Platelet Clumps 2.8 % (0-5); Polychromasia MODERATE = 3-4 cells HPF (0-2); Total Cell Count 109
[2023-11-13 06:12] LABS: Anion Gap 10 mmol/L (10-20); BUN (Urea Nitrogen) 24 mg/dL (8.4-25.7); Calc. Creatinine Clearance 75 mL/min (70-130); Calcium 7.9 mg/dL (7.8-10.44); Carbon Dioxide 21 mmol/L (23-31); Chloride 114 mmol/L (98-107); Estimated GFR 92; Glucose 97 mg/dL (83-110); Potassium 3.5 mmol/L (3.5-5.1); Sodium 141 mmol/L (136-145)
[2023-11-13] MEDS: D5W-AA 4.25% with LYTES 1,000 ML IV SCH (13:34)
[2023-11-14 04:50] LABS: Hemoglobin 8.3 g/dL (14.0-18.0); Manual Diff?? YES; Mean Corpuscular HGB CONC 31.9 g/dL (32.0-36.0); Mean Corpuscular Hemoglobin 32.4 pg (27.0-31.0); Mean Corpuscular Volume 101.6 fl (78.0-98.0); Platelet Count 131 10x3/uL (130-400); RBC Distribution Width 19.6 % (11.5-14.5); Red Blood Cell (RBC) Count 2.56 mill/uL (4.70-6.10); White Blood Cell (WBC) Count 4.2 10x3/uL (4.8-10.8)
[2023-11-14 04:57] LABS: Delete Auto Diff?? YES
[2023-11-14 05:14] LABS: Anion Gap 10 mmol/L (10-20); BUN (Urea Nitrogen) 26 mg/dL (8.4-25.7); Calc. Creatinine Clearance 79 mL/min (70-130); Calcium 8.1 mg/dL (7.8-10.44); Carbon Dioxide 23 mmol/L (23-31); Chloride 110 mmol/L (98-107); Estimated GFR 94; Glucose 124 mg/dL (83-110); Potassium 3.6 mmol/L (3.5-5.1); Sodium 139 mmol/L (136-145)
[2023-11-14 05:41] LABS: Anisocytosis MODERATE=16-30 cells HPF (0-5); Band 12 % (5-11); CellaVision Operator ID lab.sh2; Large Platelets 34.7 % (0-5); Lymphocytes 3 % (21-51); Macrocytosis MODERATE=16-30 cells HPF (0-5); Monocytes 5 % (0-10); Neutrophil 80 % (42-75); Ovalocytes MODERATE= 6-15 cells HPF (0-1); Platelet Adequacy Comment Platelets Normal; Polychromasia SLIGHT = 2-3 cells HPF (0-2); Smudge Cells 8.9 %; Tear Drops SLIGHT = 2-5 cells HPF (0-1); Total Cell Count 101
[2023-11-15 04:15] LABS: Hematocrit 24.5 % (42.0-52.0); Hemoglobin 7.9 g/dL (14.0-18.0); Manual Diff?? YES; Mean Corpuscular HGB CONC 32.2 g/dL (32.0-36.0); Mean Corpuscular Hemoglobin 32.5 pg (27.0-31.0); Mean Corpuscular Volume 100.8 fl (78.0-98.0); Platelet Count 105 10x3/uL (130-400); Red Blood Cell (RBC) Count 2.43 mill/uL (4.70-6.10); White Blood Cell (WBC) Count 3.6 10x3/uL (4.8-10.8)
[2023-11-15 04:24] LABS: Delete Auto Diff?? YES
[2023-11-15 05:08] LABS: Anisocytosis SLIGHT = 6-15 cells HPF (0-5); Band 1 % (5-11); CellaVision Operator ID lab.abc; Eosinophils 3 % (0-10); Hypochromia SLIGHT = 6-15 cells HPF (0-5); Lymphocytes 4 % (21-51); Macrocytosis SLIGHT = 6-15 cells HPF (0-5); Monocytes 11 % (0-10); Neutrophil 80 % (42-75); Platelet Adequacy Comment Platelets Decreased; Total Cell Count 100
[2023-11-15] MEDS ORDERED: Iopamidol-370 76% 500 ML MDV (1 ML CHARGE) ONE (11:50)
[2023-11-15] MEDS ORDERED: chlorproMAZINE HCl 50 MG/2 ML AMP SLOW IVP PRN (16:35)
[2023-11-15] MEDS: Simethicone Chewable 80 MG TAB PO SCH (20:20)
[2023-11-15] MEDS: chlorproMAZINE HCl 25 MG in Sodium Chloride 0.9% 50 ML IVPB PRN (21:28)
[2023-11-16 07:08] LABS: Hematocrit 23.5 % (42.0-52.0); Hemoglobin 7.7 g/dL (14.0-18.0); Manual Diff?? YES; Mean Corpuscular HGB CONC 32.8 g/dL (32.0-36.0); Mean Corpuscular Hemoglobin 32.9 pg (27.0-31.0); Mean Corpuscular Volume 100.4 fl (78.0-98.0); RBC Distribution Width 18.8 % (11.5-14.5); Red Blood Cell (RBC) Count 2.34 mill/uL (4.70-6.10)
[2023-11-16 07:46] LABS: Anion Gap 11 mmol/L (10-20); BUN (Urea Nitrogen) 35 mg/dL (8.4-25.7); Calc. Creatinine Clearance 83 mL/min (70-130); Carbon Dioxide 22 mmol/L (23-31); Chloride 106 mmol/L (98-107); Estimated GFR 95; Glucose 107 mg/dL (83-110); Potassium 3.8 mmol/L (3.5-5.1); Sodium 135 mmol/L (136-145)
[2023-11-16 08:16] LABS: Delete Auto Diff?? YES; Platelet Count 78 10x3/uL (130-400)
[2023-11-16 09:21] LABS: Anisocytosis MARKED = >30 cells HPF (0-5); Band 10 % (5-11); CellaVision Operator ID LAB.CMB; Eosinophils 2 % (0-10); Large Platelets 82.5 % (0-5); Lymphocytes 8 % (21-51); Macrocytosis MODERATE=16-30 cells HPF (0-5); Monocytes 5 % (0-10); Neutrophil 75 % (42-75); Ovalocytes SLIGHT = 2-5 cells HPF (0-1); Platelet Adequacy Comment Platelets Decreased; Polychromasia MODERATE = 3-4 cells HPF (0-2); Target Cells SLIGHT = 2-5 cells HPF (0-1); Total Cell Count 103
[2023-11-16] MEDS: Ketorolac Tromethamine 30 MG (1 mL) VIAL IVP PRN (09:47)
[2023-11-16] MEDS: Simethicone Chewable 80 MG TAB PO SCH (15:27)
[2023-11-16] MEDS: traMADol HCl 50 MG TAB PO PRN (15:56)
[2023-11-17 07:53] LABS: Hematocrit 21.7 % (42.0-52.0); Manual Diff?? YES; Mean Corpuscular HGB CONC 32.3 g/dL (32.0-36.0); Mean Corpuscular Hemoglobin 32.3 pg (27.0-31.0); Red Blood Cell (RBC) Count 2.17 mill/uL (4.70-6.10); White Blood Cell (WBC) Count 3.2 10x3/uL (4.8-10.8)
[2023-11-17 07:54] LABS: Platelet Count 84 10x3/uL (130-400)
[2023-11-17 07:55] LABS: Delete Auto Diff?? YES
[2023-11-17 08:00] LABS: Anion Gap 9 mmol/L (10-20); BUN (Urea Nitrogen) 35 mg/dL (8.4-25.7); Calc. Creatinine Clearance 71 mL/min (70-130); Calcium 7.7 mg/dL (7.8-10.44); Carbon Dioxide 24 mmol/L (23-31); Chloride 107 mmol/L (98-107); Estimated GFR 90; Glucose 101 mg/dL (83-110); Potassium 4.2 mmol/L (3.5-5.1); Sodium 136 mmol/L (136-145)
[2023-11-17 08:34] LABS: Anisocytosis MARKED = >30 cells HPF (0-5); Band 9 % (5-11); CellaVision Operator ID LAB.CMB; Eosinophils 1 % (0-10); Large Platelets 89.6 % (0-5); Lymphocytes 5 % (21-51); Macrocytosis MODERATE=16-30 cells HPF (0-5); Monocytes 10 % (0-10); Neutrophil 74 % (42-75); Ovalocytes MODERATE= 6-15 cells HPF (0-1); Plasma Cells 1 % (0-0); Platelet Adequacy Comment Platelets Decreased; Platelet Clumps 3.8 % (0-5); Polychromasia SLIGHT = 2-3 cells HPF (0-2); Target Cells SLIGHT = 2-5 cells HPF (0-1); Total Cell Count 106
[2023-11-17] MEDS: Bisacodyl 10 MG SUPP PR SCH (09:00)
[2023-11-17] MEDS ORDERED: MD-Gastroview 120 ML BOT ONE (13:29)
[2023-11-17] MEDS: HYDROcodone/Acetaminophen 5/325 mg Tablet PO PRN (16:05)
[2023-11-18 06:45] LABS: Hematocrit 22.8 % (42.0-52.0); Hemoglobin 7.3 g/dL (14.0-18.0); Manual Diff?? YES; Mean Corpuscular Hemoglobin 32.2 pg (27.0-31.0); Mean Corpuscular Volume 100.4 fl (78.0-98.0); Platelet Count 97 10x3/uL (130-400); RBC Distribution Width 19.2 % (11.5-14.5); Red Blood Cell (RBC) Count 2.27 mill/uL (4.70-6.10); White Blood Cell (WBC) Count 4.3 10x3/uL (4.8-10.8)
[2023-11-18 07:44] LABS: Delete Auto Diff?? YES
[2023-11-18 08:30] LABS: Anisocytosis SLIGHT = 6-15 cells HPF (0-5); Band 6 % (5-11); CellaVision Operator ID LAB.KW3; Giant Platelets 3.8 % (0-5); Large Platelets 46.2 % (0-5); Lymphocytes 4 % (21-51); Monocytes 5 % (0-10); Neutrophil 82 % (42-75); Platelet Adequacy Comment Platelets Decreased; Polychromasia SLIGHT = 2-3 cells HPF (0-2); Schistocytes SLIGHT = 2-5 cells HPF (0-1); Tear Drops SLIGHT = 2-5 cells HPF (0-1); Total Cell Count 106
[2023-11-19 05:00] LABS: Hematocrit 22.3 % (42.0-52.0); Hemoglobin 7.3 g/dL (14.0-18.0); Manual Diff?? YES; Mean Corpuscular HGB CONC 32.7 g/dL (32.0-36.0); Mean Corpuscular Hemoglobin 32.4 pg (27.0-31.0); Mean Corpuscular Volume 99.1 fl (78.0-98.0); Platelet Count 98 10x3/uL (130-400); RBC Distribution Width 19.1 % (11.5-14.5); Red Blood Cell (RBC) Count 2.25 mill/uL (4.70-6.10); White Blood Cell (WBC) Count 8.6 10x3/uL (4.8-10.8)
[2023-11-19 05:03] LABS: Delete Auto Diff?? YES
[2023-11-19 05:29] LABS: Anion Gap 11 mmol/L (10-20); BUN (Urea Nitrogen) 33 mg/dL (8.4-25.7); Calc. Creatinine Clearance 63 mL/min (70-130); Calcium 7.8 mg/dL (7.8-10.44); Carbon Dioxide 22 mmol/L (23-31); Chloride 106 mmol/L (98-107); Estimated GFR 78; Glucose 95 mg/dL (83-110); Potassium 3.9 mmol/L (3.5-5.1); Sodium 135 mmol/L (136-145)
[2023-11-19 05:56] LABS: Anisocytosis SLIGHT = 6-15 cells HPF (0-5); Band 12 % (5-11); CellaVision Operator ID lab.abc; Large Platelets 24.5 % (0-5); Monocytes 4 % (0-10); Neutrophil 84 % (42-75); Platelet Adequacy Comment Platelets Decreased; Polychromasia SLIGHT = 2-3 cells HPF (0-2); Total Cell Count 102
[2023-11-19] MEDS: Metoclopramide HCl 10 MG (2 mL) VIAL IVP SCH (12:48)
[2023-11-20 04:58] LABS: Hematocrit 24.5 % (42.0-52.0); Hemoglobin 7.9 g/dL (14.0-18.0); Manual Diff?? YES; Mean Corpuscular HGB CONC 32.2 g/dL (32.0-36.0); Mean Corpuscular Hemoglobin 32.2 pg (27.0-31.0); Platelet Count 116 10x3/uL (130-400); Red Blood Cell (RBC) Count 2.45 mill/uL (4.70-6.10)
[2023-11-20 05:13] LABS: Delete Auto Diff?? YES
[2023-11-20 05:20] LABS: Anion Gap 12 mmol/L (10-20); BUN (Urea Nitrogen) 32 mg/dL (8.4-25.7); Calc. Creatinine Clearance 65 mL/min (70-130); Calcium 7.8 mg/dL (7.8-10.44); Carbon Dioxide 22 mmol/L (23-31); Chloride 105 mmol/L (98-107); Estimated GFR 81; Glucose 150 mg/dL (83-110); Magnesium 1.8 mg/dL (1.6-2.6); Potassium 3.8 mmol/L (3.5-5.1); Sodium 135 mmol/L (136-145)
[2023-11-20 05:45] LABS: Band 45 % (5-11); CellaVision Operator ID LAB.GE; Lymphocytes 1 % (21-51); Neutrophil 53 % (42-75); Ovalocytes SLIGHT = 2-5 cells HPF (0-1); Platelet Adequacy Comment Platelets Decreased; Polychromasia MODERATE = 3-4 cells HPF (0-2); Total Cell Count 100
[2023-11-20] MEDS: Lactated Ringer's 1,000 ML IV SCH (13:29)
[2023-11-21 05:28] LABS: Hematocrit 21.8 % (42.0-52.0); Hemoglobin 7.1 g/dL (14.0-18.0); Manual Diff?? YES; Mean Corpuscular HGB CONC 32.6 g/dL (32.0-36.0); Mean Corpuscular Hemoglobin 32.7 pg (27.0-31.0); Mean Corpuscular Volume 100.5 fl (78.0-98.0); Platelet Count 111 10x3/uL (130-400); RBC Distribution Width 18.6 % (11.5-14.5); Red Blood Cell (RBC) Count 2.17 mill/uL (4.70-6.10); White Blood Cell (WBC) Count 4.7 10x3/uL (4.8-10.8)
[2023-11-21 05:40] LABS: Delete Auto Diff?? YES
[2023-11-21 05:59] LABS: Anion Gap 12 mmol/L (10-20); BUN (Urea Nitrogen) 32 mg/dL (8.4-25.7); Calc. Creatinine Clearance 77 mL/min (70-130); Calcium 7.7 mg/dL (7.8-10.44); Carbon Dioxide 23 mmol/L (23-31); Chloride 105 mmol/L (98-107); Estimated GFR 93; Glucose 126 mg/dL (83-110); Potassium 3.8 mmol/L (3.5-5.1); Sodium 136 mmol/L (136-145)
[2023-11-21 07:59] LABS: Band 9 % (5-11); Lymphocytes 3 % (21-51); Monocytes 7 % (0-10); Neutrophil 81 % (42-75)
[2023-11-21 08:00] LABS: Large Platelets SLIGHT (None Seen); Schistocytes SLIGHT = 2-5 cells (100X) (0-1/hpf)
[2023-11-21] MEDS: Ketorolac Tromethamine 30 MG (1 mL) VIAL IVP PRN (10:43)
[2023-11-21] MEDS ORDERED: Iopamidol-370 76% 500 ML MDV (1 ML CHARGE) ONE (14:34)
[2023-11-21] MEDS ORDERED: GASTROGRAFIN 30 ML BOT ONE (14:34)
[2023-11-21] MEDS: Piperacillin/Tazobactam 3.375 GM in Sodium Chloride 0.9% 100 ML IVPB SCH (22:05)
[2023-11-21] MEDS ORDERED: Lorazepam 2 MG/ML VIAL SLOW IVP SCH (23:15)
[2023-11-21] MEDS: metroNIDAZOLE 500 MG in Premix 1 BAG IVPB SCH (23:16)
[2023-11-21] MEDS: LORazepam 2 MG/ML SYR.(CARPUJECT) IVP SCH (23:22)
[2023-11-22] MEDS: Piperacillin/Tazobactam 3.375 GM in Sodium Chloride 0.9% 100 ML IVPB SCH ×2 (04:20→11:08)
[2023-11-22 05:09] LABS: Hematocrit 26.1 % (42.0-52.0); Hemoglobin 8.7 g/dL (14.0-18.0); Manual Diff?? YES; Mean Corpuscular HGB CONC 33.3 g/dL (32.0-36.0); Mean Corpuscular Hemoglobin 32.3 pg (27.0-31.0); Platelet Count 123 10x3/uL (130-400); RBC Distribution Width 18.3 % (11.5-14.5); Red Blood Cell (RBC) Count 2.69 mill/uL (4.70-6.10)
[2023-11-22 05:17] LABS: Delete Auto Diff?? YES
[2023-11-22 05:41] LABS: Anion Gap 12 mmol/L (10-20); BUN (Urea Nitrogen) 35 mg/dL (8.4-25.7); Calc. Creatinine Clearance 72 mL/min (70-130); Calcium 7.9 mg/dL (7.8-10.44); Carbon Dioxide 24 mmol/L (23-31); Chloride 104 mmol/L (98-107); Estimated GFR 91; Glucose 97 mg/dL (83-110); Potassium 3.8 mmol/L (3.5-5.1); Sodium 136 mmol/L (136-145)
[2023-11-22 06:25] LABS: Anisocytosis SLIGHT = 6-15 cells HPF (0-5); Band 21 % (5-11); CellaVision Operator ID lab.dlt; Eosinophils 1 % (0-10); Hypochromia SLIGHT = 6-15 cells HPF (0-5); Large Platelets 82.3 % (0-5); Lymphocytes 5 % (21-51); Monocytes 13 % (0-10); Neutrophil 60 % (42-75); Ovalocytes SLIGHT = 2-5 cells HPF (0-1); Platelet Adequacy Comment Platelets Decreased; Polychromasia SLIGHT = 2-3 cells HPF (0-2); Total Cell Count 96
[2023-11-22] MEDS ORDERED: Sodium Bicarbonate 0.5 MEQ/ML SDV 10 ML ONE (07:55)
[2023-11-22] MEDS ORDERED: Lidocaine 1% PF 5 ML VIAL ONE (07:55)
[2023-11-22] MEDS: OLANZapine 10 MG VIAL IM SCH ×2 (14:22→20:39)
[2023-11-22] MEDS ORDERED: Melatonin 3 MG TAB PO PRN (23:13)
[2023-11-23 06:06] LABS: Hematocrit 24.8 % (42.0-52.0); Hemoglobin 8.3 g/dL (14.0-18.0); Manual Diff?? YES; Mean Corpuscular HGB CONC 33.5 g/dL (32.0-36.0); Mean Corpuscular Hemoglobin 32.2 pg (27.0-31.0); Mean Corpuscular Volume 96.1 fl (78.0-98.0); Platelet Count 122 10x3/uL (130-400); RBC Distribution Width 18.5 % (11.5-14.5); Red Blood Cell (RBC) Count 2.58 mill/uL (4.70-6.10)
[2023-11-23 06:08] LABS: Delete Auto Diff?? YES
[2023-11-23 06:23] LABS: INR-International Normal Ratio 1.3; PTT 34.7 sec (22.9-36.1); Prothrombin Time 16.6 sec (12.0-14.7)
[2023-11-23 06:30] LABS: Band 43 % (5-11); CellaVision Operator ID LAB.CLH1; Elliptocytes SLIGHT = 2-5 cells HPF (0-1); Eosinophils 2 % (0-10); Hypochromia SLIGHT = 6-15 cells HPF (0-5); Large Platelets 42.5 % (0-5); Lymphocytes 2 % (21-51); Monocytes 9 % (0-10); Neutrophil 43 % (42-75); Platelet Adequacy Comment Platelets Decreased; Polychromasia SLIGHT = 2-3 cells HPF (0-2); Total Cell Count 106
[2023-11-23 06:32] LABS: Phosphorus 3.1 mg/dL (2.3-4.7)
[2023-11-23 06:34] LABS: ALT (SGPT) Less than 7 U/L (8-55); AST (SGOT) 7 U/L (5-34); Albumin 2.2 g/dL (3.4-4.8); Alkaline Phosphatase 51 U/L (40-110); Anion Gap 13 mmol/L (10-20); BUN (Urea Nitrogen) 31 mg/dL (8.4-25.7); Bilirubin, Total 0.8 mg/dL (0.2-1.2); Calc. Creatinine Clearance 81 mL/min (70-130); Calcium 7.4 mg/dL (7.8-10.44); Carbon Dioxide 23 mmol/L (23-31); Cardiac Risk 3.9 (Less than 4.5); Chloride 105 mmol/L (98-107); Cholesterol 70 mg/dl (< 200 Desired); Estimated GFR 92; Globulin 2.4 g/dL (2.4-3.5); Glucose 91 mg/dL (83-110); HDL Cholesterol 18 mg/dL (>60 Neg Risk); LDL Cholesterol, Calculated 40 mg/dL; Magnesium 1.8 mg/dL (1.6-2.6); Potassium 3.1 mmol/L (3.5-5.1); Protein, Total 4.6 g/dL (5.8-8.1); Sodium 138 mmol/L (136-145); Triglycerides 59 mg/dL (Less than 150)
[2023-11-23] MEDS: Potassium Chloride 20 MEQ in Premix 1 BAG IVPB SCH (09:21)
[2023-11-23] MEDS ORDERED: Fat Emulsion 250 ML, Multivitamins, Adult 10 ML, TRACE ELEMENT CONCENTRATE 1 ML in D15W... IV SCH (14:00)
[2023-11-23 14:35] LABS: Magnesium 1.8 mg/dL (1.6-2.6)
[2023-11-23] MEDS: SODIUM PHOSPHATE IV SCH (14:41)
[2023-11-23] MEDS: SODIUM ACETATE IV SCH (14:41)
[2023-11-23] MEDS: POTASSIUM CHLORIDE IV SCH (14:41)
[2023-11-23] MEDS: [UNRECOGNIZED DRUG - OTHER] IV SCH (14:41)
[2023-11-24 05:08] LABS: Hematocrit 31.4 % (42.0-52.0); Hemoglobin 10.5 g/dL (14.0-18.0); Manual Diff?? YES; Mean Corpuscular HGB CONC 33.4 g/dL (32.0-36.0); Mean Corpuscular Volume 95.7 fl (78.0-98.0); RBC Distribution Width 18.1 % (11.5-14.5); Red Blood Cell (RBC) Count 3.28 mill/uL (4.70-6.10); White Blood Cell (WBC) Count 2.9 10x3/uL (4.8-10.8)
[2023-11-24 05:12] LABS: Delete Auto Diff?? YES; Platelet Count 89 10x3/uL (130-400)
[2023-11-24 05:33] LABS: Anion Gap 12 mmol/L (10-20); BUN (Urea Nitrogen) 30 mg/dL (8.4-25.7); Calc. Creatinine Clearance 81 mL/min (70-130); Calcium 7.5 mg/dL (7.8-10.44); Carbon Dioxide 21 mmol/L (23-31); Chloride 106 mmol/L (98-107); Estimated GFR 92; Glucose 124 mg/dL (83-110); Potassium 3.2 mmol/L (3.5-5.1); Sodium 136 mmol/L (136-145)
[2023-11-24 06:18] LABS: Anisocytosis MODERATE=16-30 cells HPF (0-5); Band 10 % (5-11); Burr Cells SLIGHT = 2-5 cells HPF (0-1); CellaVision Operator ID lab.sh2; Large Platelets 38.5 % (0-5); Lymphocytes 2 % (21-51); Macrocytosis SLIGHT = 6-15 cells HPF (0-5); Monocytes 10 % (0-10); Neutrophil 79 % (42-75); Ovalocytes SLIGHT = 2-5 cells HPF (0-1); Platelet Adequacy Comment Platelets Decreased; Polychromasia MARKED = >4 cells HPF (0-2); Smudge Cells 11.5 %; Tear Drops SLIGHT = 2-5 cells HPF (0-1); Total Cell Count 52
[2023-11-24 07:32] LABS: Magnesium 1.7 mg/dL (1.6-2.6); Phosphorus 3.3 mg/dL (2.3-4.7)
[2023-11-24] MEDS: Magnesium 2 GM/50 ML(in water) 2 GM in Premix 1 BAG IVPB SCH (10:27)
[2023-11-24] MEDS: Potassium Chloride 20 MEQ in Premix 1 BAG IVPB SCH (10:27)
[2023-11-24] MEDS: HumaLOG 300 UNITS/3 ML VIAL SC PRN (12:46)
[2023-11-24 15:02] LABS: Magnesium 2.2 mg/dL (1.6-2.6)
[2023-11-24] MEDS: POTASSIUM ACETATE IV SCH (15:18)
[2023-11-24] MEDS: SODIUM ACETATE IV SCH (15:18)
[2023-11-24] MEDS: SODIUM PHOSPHATE IV SCH (15:18)
[2023-11-24] MEDS: [UNRECOGNIZED DRUG - OTHER] IV SCH (15:18)
[2023-11-25 05:19] LABS: Hematocrit 24.2 % (42.0-52.0); Hemoglobin 7.9 g/dL (14.0-18.0); Manual Diff?? YES; Mean Corpuscular HGB CONC 32.6 g/dL (32.0-36.0); Mean Corpuscular Hemoglobin 31.5 pg (27.0-31.0); Mean Corpuscular Volume 96.4 fl (78.0-98.0); Platelet Count 97 10x3/uL (130-400); RBC Distribution Width 18.4 % (11.5-14.5); Red Blood Cell (RBC) Count 2.51 mill/uL (4.70-6.10); White Blood Cell (WBC) Count 3.9 10x3/uL (4.8-10.8)
[2023-11-25 05:20] LABS: Delete Auto Diff?? YES
[2023-11-25 05:41] LABS: Anisocytosis MARKED = >30 cells HPF (0-5); Band 44 % (5-11); CellaVision Operator ID LAB.CLH1; Hypochromia SLIGHT = 6-15 cells HPF (0-5); Large Platelets 101.9 % (0-5); Lymphocytes 4 % (21-51); Macrocytosis MODERATE=16-30 cells HPF (0-5); Monocytes 4 % (0-10); Neutrophil 46 % (42-75); Platelet Adequacy Comment Platelets Decreased; Polychromasia SLIGHT = 2-3 cells HPF (0-2); Reactive Lymphocytes 2 % (0-10); Total Cell Count 52
[2023-11-25 05:42] LABS: Anion Gap 10 mmol/L (10-20); BUN (Urea Nitrogen) 28 mg/dL (8.4-25.7); Calc. Creatinine Clearance 84 mL/min (70-130); Calcium 7.3 mg/dL (7.8-10.44); Carbon Dioxide 22 mmol/L (23-31); Chloride 107 mmol/L (98-107); Estimated GFR 93; Glucose 140 mg/dL (83-110); Potassium 3.3 mmol/L (3.5-5.1); Sodium 136 mmol/L (136-145)
[2023-11-25 11:02] LABS: #Eosinphils 0.1 thou/uL (0.0-0.7); #Monocytes 0.6 thou/uL (0.11-0.59); #Neutrophils 3.2 thou/uL (1.40-6.50); %Basophils 0.2 % (0.0-1.0); %Eosinophils 3.1 % (0.0-10.0); %Lymphocytes 3.8 % (21.0-51.0); %Monocytes 13.5 % (0.0-10.0); Hematocrit 24.5 % (42.0-52.0); Hemoglobin 8.2 g/dL (14.0-18.0); Mean Corpuscular HGB CONC 33.5 g/dL (32.0-36.0); Mean Corpuscular Hemoglobin 32.3 pg (27.0-31.0); Mean Corpuscular Volume 96.5 fl (78.0-98.0); Platelet Count 127 10x3/uL (130-400); RBC Distribution Width 18.6 % (11.5-14.5); Red Blood Cell (RBC) Count 2.54 mill/uL (4.70-6.10); White Blood Cell (WBC) Count 4.2 10x3/uL (4.8-10.8)
[2023-11-25] MEDS: Potassium Chloride 20 MEQ TAB PO SCH (11:11)
[2023-11-25] MEDS: Potassium Chloride 20 MEQ in Premix 1 BAG IVPB SCH (11:17)
[2023-11-25] MEDS ORDERED: SODIUM ACETATE IV SCH (14:00)
[2023-11-25] MEDS ORDERED: POTASSIUM ACETATE IV SCH (14:00)
[2023-11-25] MEDS ORDERED: SODIUM PHOSPHATE IV SCH (14:00)
[2023-11-25] MEDS ORDERED: [UNRECOGNIZED DRUG - OTHER] IV SCH (14:00)
[2023-11-25] MEDS: SODIUM PHOSPHATE IV SCH (15:36)
[2023-11-25] MEDS: POTASSIUM ACETATE IV SCH (15:36)
[2023-11-25] MEDS: [UNRECOGNIZED DRUG - OTHER] IV SCH (15:36)
[2023-11-25] MEDS: SODIUM ACETATE IV SCH (15:36)
[2023-11-25 21:22] LABS: Anion Gap 11 mmol/L (10-20); BUN (Urea Nitrogen) 26 mg/dL (8.4-25.7); Calc. Creatinine Clearance 81 mL/min (70-130); Calcium 7.6 mg/dL (7.8-10.44); Carbon Dioxide 19 mmol/L (23-31); Chloride 108 mmol/L (98-107); Estimated GFR 92; Glucose 140 mg/dL (83-110); Sodium 134 mmol/L (136-145)
[2023-11-26 05:25] LABS: Hematocrit 23.4 % (42.0-52.0); Hemoglobin 7.7 g/dL (14.0-18.0); Manual Diff?? YES; Mean Corpuscular HGB CONC 32.9 g/dL (32.0-36.0); Mean Corpuscular Volume 97.1 fl (78.0-98.0); Platelet Count 93 10x3/uL (130-400); RBC Distribution Width 18.2 % (11.5-14.5); Red Blood Cell (RBC) Count 2.41 mill/uL (4.70-6.10); White Blood Cell (WBC) Count 4.3 10x3/uL (4.8-10.8)
[2023-11-26 05:26] LABS: Delete Auto Diff?? YES
[2023-11-26 05:50] LABS: Anion Gap 9 mmol/L (10-20); BUN (Urea Nitrogen) 24 mg/dL (8.4-25.7); Calc. Creatinine Clearance 90 mL/min (70-130); Calcium 7.6 mg/dL (7.8-10.44); Carbon Dioxide 22 mmol/L (23-31); Chloride 107 mmol/L (98-107); Estimated GFR 95; Glucose 118 mg/dL (83-110); Magnesium 1.7 mg/dL (1.6-2.6); Potassium 3.6 mmol/L (3.5-5.1); Sodium 134 mmol/L (136-145)
[2023-11-26 05:54] LABS: Anisocytosis MODERATE=16-30 cells HPF (0-5); Band 5 % (5-11); CellaVision Operator ID lab.sh2; Eosinophils 3 % (0-10); Large Platelets 24.3 % (0-5); Lymphocytes 2 % (21-51); Macrocytosis SLIGHT = 6-15 cells HPF (0-5); Monocytes 9 % (0-10); Neutrophil 82 % (42-75); Ovalocytes SLIGHT = 2-5 cells HPF (0-1); Platelet Adequacy Comment Platelets Decreased; Poikilocytosis SLIGHT = 6-15 cells HPF (0-5); Polychromasia MODERATE = 3-4 cells HPF (0-2); Smudge Cells 4.9 %; Total Cell Count 103
[2023-11-26 05:57] LABS: Phosphorus 2.5 mg/dL (2.3-4.7)
[2023-11-26 08:51] VITALS: BMI 23.1
[2023-11-26] MEDS: Digoxin 0.125 MG TAB PO SCH (11:17)
[2023-11-26] MEDS: Saccharomyces boulardii 250 MG CAP PO SCH (11:18)
[2023-11-26] MEDS: Magnesium 2 GM/50 ML(in water) 2 GM in Premix 1 BAG IVPB SCH (11:19)
[2023-11-26] MEDS ORDERED: [UNRECOGNIZED DRUG - OTHER] IV SCH (14:00)
[2023-11-26] MEDS ORDERED: POTASSIUM ACETATE IV SCH (14:00)
[2023-11-26] MEDS ORDERED: SODIUM PHOSPHATE IV SCH (14:00)
[2023-11-26] MEDS ORDERED: SODIUM ACETATE IV SCH (14:00)
[2023-11-27 06:00] LABS: #Eosinphils 0.1 thou/uL (0.0-0.7); #Monocytes 0.6 thou/uL (0.11-0.59); #Neutrophils 3.1 thou/uL (1.40-6.50); %Basophils 0.2 % (0.0-1.0); %Eosinophils 3.1 % (0.0-10.0); %Lymphocytes 5.8 % (21.0-51.0); Hemoglobin 7.7 g/dL (14.0-18.0); Mean Corpuscular HGB CONC 33.5 g/dL (32.0-36.0); Mean Corpuscular Volume 95.4 fl (78.0-98.0); Platelet Count 96 10x3/uL (130-400); RBC Distribution Width 18.3 % (11.5-14.5); Red Blood Cell (RBC) Count 2.41 mill/uL (4.70-6.10); White Blood Cell (WBC) Count 4.2 10x3/uL (4.8-10.8)
[2023-11-27 08:26] LABS: Chloride 109 mmol/L (98-107); Potassium 3.6 mmol/L (3.5-5.1)
[2023-11-27 08:27] LABS: Calcium 7.6 mg/dL (7.8-10.44); Glucose 88 mg/dL (83-110); Sodium 136 mmol/L (136-145)
[2023-11-27 08:29] LABS: Anion Gap 9 mmol/L (10-20); Carbon Dioxide 22 mmol/L (23-31)
[2023-11-27 08:31] LABS: Calc. Creatinine Clearance 87 mL/min (70-130); Estimated GFR 94
[2023-11-27 08:32] LABS: BUN (Urea Nitrogen) 21 mg/dL (8.4-25.7)
[2023-11-27] MEDS: Digoxin 0.125 MG TAB PO SCH (10:04)
[2023-11-27] MEDS: Metamucil PACK PO SCH (10:05)
[2023-11-27 15:26] VITALS: BP 105/64; TEMP 97.5
== END 2023-11-27 16:50 | disposition home or self-care (01) | DRG 335 ==
LOC: ERS 08:49 → SURG A 12:52
PROVIDERS: ADMIT Specialist; ATTEND Internal Medicine
PROC: 0D9670Z Drainage of Stomach with Drainage Device, Via Natural or Artificial Opening (ICD-10-PCS; 2023-11-06)
PROC: 0DN80ZZ Release Small Intestine, Open Approach (ICD-10-PCS; 2023-11-10)
PROC: 3E0336Z Introduction of Nutritional Substance into Peripheral Vein, Percutaneous Approach (ICD-10-PCS; 2023-11-13)
PROC: 30233N1 Transfusion of Nonautologous Red Blood Cells into Peripheral Vein, Percutaneous Approach (ICD-10-PCS; 2023-11-21)
PROC: 02HV33Z Insertion of Infusion Device into Superior Vena Cava, Percutaneous Approach (ICD-10-PCS; principal; 2023-11-22)
PROC: B5181ZA Fluoroscopy of Superior Vena Cava using Low Osmolar Contrast, Guidance (ICD-10-PCS; 2023-11-22)
PROC: B548ZZA Ultrasonography of Superior Vena Cava, Guidance (ICD-10-PCS; 2023-11-22)
DX: K56.50 Intestinal adhesions [bands], unspecified as to partial versus complete obstruction (principal); E43 Unspecified severe protein-calorie malnutrition; C90.00 Multiple myeloma not having achieved remission; N17.9 Acute kidney failure, unspecified; E78.00 Pure hypercholesterolemia, unspecified; I48.91 Unspecified atrial fibrillation; E86.0 Dehydration; E66.9 Obesity, unspecified; N18.9 Chronic kidney disease, unspecified; E87.6 Hypokalemia; D69.6 Thrombocytopenia, unspecified; E11.22 Type 2 diabetes mellitus with diabetic chronic kidney disease; I12.9 Hypertensive chronic kidney disease with stage 1 through stage 4 chronic kidney disease, or unspecified chronic kidney disease; K56.7 Ileus, unspecified; G47.00 Insomnia, unspecified; R06.6 Hiccough; E83.42 Hypomagnesemia; Z88.8 Allergy status to other drugs, medicaments and biological substances; Z95.0 Presence of cardiac pacemaker; Z68.23 Body mass index [BMI] 23.0-23.9, adult
CPT/HCPCS: 36415; 36416; 36430; 36569; 71045; 71046; 74018; 74022; 74177; 74250; 80048; 80053; 80061; 83036; 83605; 83690; 83735; 84100; 84134; 84484; 85025; 85610; 85730; 86850; 86900; 86901; 93005; 94760; 96361; 96374; 96375; A4314; C1713; C9113; J0612; J1100; J1160; J1170; J1650; J1815; J1885; J2060; J2270; J2272; J2405; J2543; J2704; J2765; J3010; J3230; J3475; J3480; J3490; J7030; J7050; J7120; P9016; P9045; Q9963; Q9967

== ENCOUNTER 2023-12-10 12:47 | Inpatient (IN) | payer BC, MEDICARE ==
[2023-12-10 16:45] LABS: Hematocrit 32.1 % (42.0-52.0); Hemoglobin 10.6 g/dL (14.0-18.0); Manual Diff?? YES; Mean Corpuscular Hemoglobin 31.5 pg (27.0-31.0); Mean Corpuscular Volume 95.3 fl (78.0-98.0); Platelet Count 159 10x3/uL (130-400); RBC Distribution Width 18.6 % (11.5-14.5); Red Blood Cell (RBC) Count 3.37 mill/uL (4.70-6.10); White Blood Cell (WBC) Count 6.6 10x3/uL (4.8-10.8)
[2023-12-10 16:48] LABS: Delete Auto Diff?? YES
[2023-12-10 17:11] LABS: Anisocytosis SLIGHT = 6-15 cells HPF (0-5); Band 23 % (5-11); CellaVision Operator ID LAB.MJL; Eosinophils 2 % (0-10); Large Platelets 30.8 % (0-5); Lymphocytes 2 % (21-51); Metamyelocyte 2 % (0-0); Monocytes 5 % (0-10); Myelocyte 3 % (0-0); Neutrophil 64 % (42-75); Ovalocytes SLIGHT = 2-5 cells HPF (0-1); Platelet Adequacy Comment Platelets Normal; Poikilocytosis SLIGHT = 6-15 cells HPF (0-5); Polychromasia SLIGHT = 2-3 cells HPF (0-2); Schistocytes SLIGHT = 2-5 cells HPF (0-1); Tear Drops SLIGHT = 2-5 cells HPF (0-1); Total Cell Count 104; Vacuoles SLIGHT
[2023-12-10 17:17] LABS: ALT (SGPT) 9 U/L (8-55); AST (SGOT) 19 U/L (5-34); Albumin 2.6 g/dL (3.4-4.8); Alkaline Phosphatase 87 U/L (40-110); Anion Gap 12 mmol/L (10-20); BUN (Urea Nitrogen) 29 mg/dL (8.4-25.7); Bilirubin, Total 0.7 mg/dL (0.2-1.2); Calc. Creatinine Clearance 0 mL/min (70-130); Calcium 8.4 mg/dL (7.8-10.44); Carbon Dioxide 25 mmol/L (23-31); Chloride 101 mmol/L (98-107); Estimated GFR 92; Globulin 3.2 g/dL (2.4-3.5); Glucose 130 mg/dL (83-110); Potassium 3.7 mmol/L (3.5-5.1); Protein, Total 5.8 g/dL (5.8-8.1); Sodium 134 mmol/L (136-145)
[2023-12-10] MEDS ORDERED: metroNIDAZOLE 500 MG (100 mL) BAG ONE (17:57)
[2023-12-10] MEDS ORDERED: Vancomycin 1 GM/200 ML (FROZEN) BAG ONE (17:57)
[2023-12-10] MEDS ORDERED: fentaNYL 50 mcg/mL 1 mL Vial ONE (17:57)
[2023-12-10] MEDS ORDERED: Acetaminophen 325 MG TAB PO PRN (18:06)
[2023-12-10] MEDS ORDERED: Ondansetron ODT 4 MG TAB PO PRN (18:06)
[2023-12-10] MEDS: Famotidine/PF 20 mg/2ml Vial SLOW IVP SCH (22:16)
[2023-12-10] MEDS: Ketorolac Tromethamine 30 MG (1 mL) VIAL IVP SCH (23:03)
[2023-12-11] MEDS ORDERED: Ipratropium/Albuterol 3 ML NEB NEB PRN (00:12)
[2023-12-11] MEDS: Albumin 25% 25 GM (100 mL) BOT IVPB SCH (00:49)
[2023-12-11] MEDS: Piperacillin/Tazobactam 3.375 GM in Sodium Chloride 0.9% 100 ML IVPB SCH ×2 (00:49→04:59)
[2023-12-11] MEDS: Furosemide 40 MG (4 mL) VIAL SLOW IVP SCH (02:13)
[2023-12-11 04:20] LABS: Hematocrit 23.6 % (42.0-52.0); Manual Diff?? YES; Mean Corpuscular HGB CONC 31.8 g/dL (32.0-36.0); Mean Corpuscular Hemoglobin 30.7 pg (27.0-31.0); Mean Corpuscular Volume 96.7 fl (78.0-98.0); Platelet Count 108 10x3/uL (130-400); RBC Distribution Width 18.7 % (11.5-14.5); Red Blood Cell (RBC) Count 2.44 mill/uL (4.70-6.10); White Blood Cell (WBC) Count 4.9 10x3/uL (4.8-10.8)
[2023-12-11 04:33] LABS: Delete Auto Diff?? YES; Hemoglobin 7.5 g/dL (14.0-18.0)
[2023-12-11 04:46] LABS: ALT (SGPT) 7 U/L (8-55); AST (SGOT) 13 U/L (5-34); Albumin 2.6 g/dL (3.4-4.8); Alkaline Phosphatase 63 U/L (40-110); Anion Gap 7 mmol/L (10-20); BUN (Urea Nitrogen) 26 mg/dL (8.4-25.7); Bilirubin, Total 0.7 mg/dL (0.2-1.2); Calc. Creatinine Clearance 84 mL/min (70-130); Calcium 7.5 mg/dL (7.8-10.44); Carbon Dioxide 30 mmol/L (23-31); Chloride 105 mmol/L (98-107); Estimated GFR 93; Globulin 2.1 g/dL (2.4-3.5); Glucose 85 mg/dL (83-110); Magnesium 1.8 mg/dL (1.6-2.6); Potassium 3.2 mmol/L (3.5-5.1); Protein, Total 4.7 g/dL (5.8-8.1); Sodium 139 mmol/L (136-145)
[2023-12-11 05:27] LABS: Anisocytosis MODERATE=16-30 cells HPF (0-5); Band 34 % (5-11); CellaVision Operator ID lab.sh2; Eosinophils 1 % (0-10); Hypochromia SLIGHT = 6-15 cells HPF (0-5); Lymphocytes 10 % (21-51); Macrocytosis SLIGHT = 6-15 cells HPF (0-5); Neutrophil 55 % (42-75); Ovalocytes SLIGHT = 2-5 cells HPF (0-1); Platelet Adequacy Comment Platelets Decreased; Polychromasia MODERATE = 3-4 cells HPF (0-2); Smudge Cells 5.7 %; Tear Drops SLIGHT = 2-5 cells HPF (0-1); Total Cell Count 105
[2023-12-11] MEDS: Furosemide 20 MG (2 mL) VIAL SLOW IVP SCH (06:22)
[2023-12-11] MEDS: Metamucil PACK PO SCH (08:57)
[2023-12-11] MEDS: Polyethylene Glycol 3350 17 GM Packet PO SCH (08:57)
[2023-12-11] MEDS: Empagliflozin 25 MG TAB PO SCH (08:58)
[2023-12-11] MEDS: Magnesium Oxide 400 MG TAB PO SCH (08:58)
[2023-12-11] MEDS: Saccharomyces boulardii 250 MG CAP PO SCH (08:58)
[2023-12-11] MEDS: Calcitriol 0.25 MCG CAP PO SCH (08:58)
[2023-12-11] MEDS: Docusate 100 MG CAP PO SCH (08:58)
[2023-12-11] MEDS: Digoxin 0.125 MG TAB PO SCH (08:58)
[2023-12-11] MEDS: Calcium Carbonate 500 MG ChewTAB PO PRN (11:21)
[2023-12-11] MEDS: Ondansetron PF 4 MG/2 ML Vial IVP PRN (11:21)
[2023-12-11] MEDS ORDERED: Lidocaine 1% PF 5 ML VIAL ONE ×2 (11:38→11:40)
[2023-12-11] MEDS ORDERED: Glucagon 1 MG/ML KIT IM PRN (12:22)
[2023-12-11] MEDS ORDERED: Dextrose 50% Abboject 50 ML SYRINGE SLOW IVP PRN (12:22)
[2023-12-11] MEDS ORDERED: Dextrose 5% in Water 1,000 ML IV PRN (12:22)
[2023-12-11] MEDS ORDERED: Artificial Tear Sol 15 ML BOT EA EYE PRN (12:22)
[2023-12-11] MEDS ORDERED: Sodium Chloride 0.65% Nasal 44 ML BOT EA NARE PRN (12:22)
[2023-12-11] MEDS ORDERED: Moisturizing Cream (Eucerin) 113 GM JAR TOP PRN (12:22)
[2023-12-11] MEDS ORDERED: HumaLOG 300 UNITS/3 ML VIAL SC PRN ×2 (12:22)
[2023-12-11] MEDS ORDERED: Benzonatate 100 MG CAP PO PRN (12:22)
[2023-12-11] MEDS: Potassium Chloride 20 MEQ in Premix 1 BAG IVPB SCH (14:02)
[2023-12-11] MEDS: Magnesium 2 GM/50 ML(in water) 2 GM in Premix 1 BAG IVPB SCH (14:02)
[2023-12-11 14:21] LABS: Hematocrit 26.1 % (42.0-52.0); Hemoglobin 8.3 g/dL (14.0-18.0); Platelet Count 132 10x3/uL (130-400)
[2023-12-11 15:12] LABS: Digoxin 1.61 ng/mL (0.8-2.0)
[2023-12-11] MEDS: Potassium Chloride 20 MEQ TAB PO SCH (17:08)
[2023-12-11] MEDS: Atorvastatin Calcium 10 MG TAB PO SCH (20:04)
[2023-12-11] MEDS: Tamsulosin HCl 0.4 MG CAP PO SCH (20:04)
[2023-12-11] MEDS: Metoprolol Tartrate 25 MG TAB PO SCH (20:04)
[2023-12-11] MEDS: valACYclovir 500 MG TAB PO SCH (20:04)
[2023-12-11] MEDS ORDERED: Lenalidomide [Revlimid] 10 MG Capsule PO SCH (21:00)
[2023-12-12 04:38] LABS: Hematocrit 24.5 % (42.0-52.0); Hemoglobin 7.8 g/dL (14.0-18.0); Manual Diff?? YES; Mean Corpuscular HGB CONC 31.8 g/dL (32.0-36.0); Mean Corpuscular Hemoglobin 31.5 pg (27.0-31.0); Mean Corpuscular Volume 98.8 fl (78.0-98.0); Platelet Count 125 10x3/uL (130-400); RBC Distribution Width 18.7 % (11.5-14.5); Red Blood Cell (RBC) Count 2.48 mill/uL (4.70-6.10); White Blood Cell (WBC) Count 5.3 10x3/uL (4.8-10.8)
[2023-12-12 04:40] LABS: Delete Auto Diff?? YES
[2023-12-12 05:11] LABS: ALT (SGPT) 7 U/L (8-55); AST (SGOT) 13 U/L (5-34); Albumin 2.4 g/dL (3.4-4.8); Alkaline Phosphatase 64 U/L (40-110); Anion Gap 11 mmol/L (10-20); BUN (Urea Nitrogen) 22 mg/dL (8.4-25.7); Bilirubin, Total 0.6 mg/dL (0.2-1.2); Calc. Creatinine Clearance 88 mL/min (70-130); Calcium 7.1 mg/dL (7.8-10.44); Carbon Dioxide 29 mmol/L (23-31); Chloride 107 mmol/L (98-107); Estimated GFR 94; Globulin 1.9 g/dL (2.4-3.5); Glucose 67 mg/dL (83-110); Potassium 3.5 mmol/L (3.5-5.1); Protein, Total 4.3 g/dL (5.8-8.1); Sodium 143 mmol/L (136-145)
[2023-12-12 05:16] LABS: Anisocytosis SLIGHT = 6-15 cells HPF (0-5); Band 52 % (5-11); CellaVision Operator ID LAB.CLH1; Hypochromia SLIGHT = 6-15 cells HPF (0-5); Large Platelets 26.3 % (0-5); Lymphocytes 2 % (21-51); Monocytes 3 % (0-10); Neutrophil 43 % (42-75); Nucleated RBC (Manual Ct) 1 % (0); Platelet Adequacy Comment Platelets Decreased; Polychromasia SLIGHT = 2-3 cells HPF (0-2); Total Cell Count 95
[2023-12-12] MEDS ORDERED: MD-Gastroview 120 ML BOT ONE ×2 (08:23→13:58)
[2023-12-12] MEDS: HYDROcodone/Acetaminophen 5/325 mg Tablet PO PRN (10:29)
[2023-12-12] MEDS: Pantoprazole 40 MG VIAL IVP SCH (14:39)
[2023-12-12] MEDS: Enoxaparin 80 MG (0.8 mL) SYRINGE SC SCH (21:09)
[2023-12-12] MEDS: Piperacillin/Tazobactam 4.5 GM in Sodium Chloride 0.9% 100 ML IVPB SCH (23:49)
[2023-12-13 03:39] LABS: Hematocrit 26.5 % (42.0-52.0); Hemoglobin 8.5 g/dL (14.0-18.0); Manual Diff?? YES; Mean Corpuscular HGB CONC 32.1 g/dL (32.0-36.0); Mean Corpuscular Hemoglobin 30.8 pg (27.0-31.0); Platelet Count 132 10x3/uL (130-400); RBC Distribution Width 18.8 % (11.5-14.5); Red Blood Cell (RBC) Count 2.76 mill/uL (4.70-6.10); White Blood Cell (WBC) Count 6.1 10x3/uL (4.8-10.8)
[2023-12-13 04:04] LABS: ALT (SGPT) 7 U/L (8-55); AST (SGOT) 12 U/L (5-34); Albumin 2.4 g/dL (3.4-4.8); Alkaline Phosphatase 65 U/L (40-110); Anion Gap 8 mmol/L (10-20); BUN (Urea Nitrogen) 19 mg/dL (8.4-25.7); Bilirubin, Total 0.6 mg/dL (0.2-1.2); Calc. Creatinine Clearance 75 mL/min (70-130); Calcium 7.3 mg/dL (7.8-10.44); Carbon Dioxide 32 mmol/L (23-31); Chloride 107 mmol/L (98-107); Estimated GFR 85; Globulin 2.4 g/dL (2.4-3.5); Glucose 92 mg/dL (83-110); Potassium 2.9 mmol/L (3.5-5.1); Protein, Total 4.8 g/dL (5.8-8.1); Sodium 144 mmol/L (136-145)
[2023-12-13 04:08] LABS: Delete Auto Diff?? YES
[2023-12-13 04:43] LABS: Anisocytosis SLIGHT = 6-15 cells HPF (0-5); Band 26 % (5-11); CellaVision Operator ID lab.abc; Hypochromia SLIGHT = 6-15 cells HPF (0-5); Large Platelets 7.8 % (0-5); Lymphocytes 2 % (21-51); Monocytes 12 % (0-10); Neutrophil 60 % (42-75); Platelet Adequacy Comment Platelets Normal; Smudge Cells 10.7 %; Tear Drops SLIGHT = 2-5 cells HPF (0-1); Total Cell Count 103
[2023-12-13] MEDS: Furosemide 40 MG TAB PO SCH (08:15)
[2023-12-13] MEDS: Pantoprazole 40 MG VIAL IVP SCH (08:15)
[2023-12-13] MEDS: Potassium Chloride 20 MEQ TAB PO SCH (08:15)
[2023-12-13] MEDS ORDERED: Dexamethasone 4 MG TAB PO SCH (09:00)
[2023-12-13] MEDS: Piperacillin/Tazobactam 4.5 GM in Sodium Chloride 0.9% 100 ML IVPB SCH (11:49)
[2023-12-14 05:26] LABS: #Eosinphils 0.1 thou/uL (0.0-0.7); #Monocytes 0.7 thou/uL (0.11-0.59); #Neutrophils 3.3 thou/uL (1.40-6.50); %Basophils 0.2 % (0.0-1.0); %Eosinophils 1.2 % (0.0-10.0); %Lymphocytes 5.2 % (21.0-51.0); %Monocytes 15.7 % (0.0-10.0); Hematocrit 26.8 % (42.0-52.0); Hemoglobin 8.4 g/dL (14.0-18.0); Mean Corpuscular HGB CONC 31.3 g/dL (32.0-36.0); Mean Corpuscular Hemoglobin 30.8 pg (27.0-31.0); Mean Corpuscular Volume 98.2 fl (78.0-98.0); Platelet Count 127 10x3/uL (130-400); RBC Distribution Width 18.9 % (11.5-14.5); Red Blood Cell (RBC) Count 2.73 mill/uL (4.70-6.10); White Blood Cell (WBC) Count 4.3 10x3/uL (4.8-10.8)
[2023-12-14 05:50] LABS: ALT (SGPT) Less than 7 U/L (8-55); AST (SGOT) 13 U/L (5-34); Albumin 2.5 g/dL (3.4-4.8); Alkaline Phosphatase 72 U/L (40-110); Anion Gap 8 mmol/L (10-20); BUN (Urea Nitrogen) 15 mg/dL (8.4-25.7); Bilirubin, Total 0.7 mg/dL (0.2-1.2); Calc. Creatinine Clearance 81 mL/min (70-130); Calcium 7.2 mg/dL (7.8-10.44); Carbon Dioxide 29 mmol/L (23-31); Chloride 108 mmol/L (98-107); Estimated GFR 91; Globulin 2.3 g/dL (2.4-3.5); Glucose 72 mg/dL (83-110); Potassium 2.9 mmol/L (3.5-5.1); Protein, Total 4.8 g/dL (5.8-8.1); Sodium 142 mmol/L (136-145)
[2023-12-14] MEDS ORDERED: Electrolyte Replacement Protocol FS PRN (07:45)
[2023-12-14] MEDS ORDERED: Electrolyte Replacement Protocol 1 EACH FS SCH (07:45)
[2023-12-14] MEDS ORDERED: Potassium Chloride 20 MEQ in Premix 1 BAG IVPB SCH (08:00)
[2023-12-14] MEDS: Potassium Chloride 20 MEQ TAB PO SCH ×3 (09:25→21:36)
[2023-12-14] MEDS: Hydrocortisone 2.5% Cream 30 GM TUBE TOP SCH ×2 (13:01→19:30)
[2023-12-14] MEDS: Metamucil PACK PO SCH (13:02)
[2023-12-14 17:34] LABS: Potassium 2.8 mmol/L (3.5-5.1)
[2023-12-14] MEDS: Preparation H Ointment 57 gram tube TOP SCH (21:39)
[2023-12-15 06:36] LABS: Anion Gap 7 mmol/L (10-20); BUN (Urea Nitrogen) 12 mg/dL (8.4-25.7); CRP (Inflammatory) 10.13 mg/dL (= or < 0.5); Calc. Creatinine Clearance 86 mL/min (70-130); Carbon Dioxide 30 mmol/L (23-31); Chloride 110 mmol/L (98-107); Estimated GFR 94; Glucose 88 mg/dL (83-110); Magnesium 2.1 mg/dL (1.6-2.6); Potassium 3.3 mmol/L (3.5-5.1); Sodium 144 mmol/L (136-145)
[2023-12-15] MEDS ORDERED: Preparation H Ointment 28 GM TUBE TOP PRN (08:55)
[2023-12-15] MEDS: Potassium Chloride 20 MEQ TAB PO SCH (09:46)
[2023-12-15] MEDS: Cholestyramine/Aspartame 4 gm Packet PO SCH (11:11)
[2023-12-15] MEDS: Piperacillin/Tazobactam 3.375 GM in Sodium Chloride 0.9% 100 ML IVPB SCH ×2 (13:10→20:55)
[2023-12-15] MEDS: Hydrocortisone 2.5% Cream 30 GM TUBE TOP SCH (13:11)
[2023-12-15] MEDS: Loperamide HCl 2 MG CAP PO PRN (13:11)
[2023-12-15 14:50] LABS: Potassium 3.6 mmol/L (3.5-5.1)
[2023-12-15] MEDS: Hydrocortisone Acetate 25 MG Suppository PR SCH ×2 (15:00→21:00)
[2023-12-15] MEDS: Melatonin 3 MG TAB PO PRN (21:06)
[2023-12-16 06:20] LABS: Anion Gap 13 mmol/L (10-20); BUN (Urea Nitrogen) 14 mg/dL (8.4-25.7); Calc. Creatinine Clearance 82 mL/min (70-130); Calcium 7.6 mg/dL (7.8-10.44); Carbon Dioxide 25 mmol/L (23-31); Chloride 111 mmol/L (98-107); Estimated GFR 93; Glucose 93 mg/dL (83-110); Potassium 3.6 mmol/L (3.5-5.1); Sodium 145 mmol/L (136-145)
[2023-12-16] MEDS: Meropenem 1 GM in Sodium Chloride 0.9% 100 ML IVPB SCH ×2 (10:06→17:55)
[2023-12-16] MEDS: Morphine 2 MG/ML VIAL SLOW IVP SCH ×2 (10:10→18:02)
[2023-12-16] MEDS: Magnesium Sulfate 3 GM in Sodium Chloride 0.9% 100 ML IVPB SCH (10:14)
[2023-12-16] MEDS: Potassium Chloride 20 MEQ TAB PO SCH (13:45)
[2023-12-16] MEDS: Silver Nitrate Application 1 EACH TOP SCH (19:40)
[2023-12-16] MEDS: Lidocaine 1% (PF) 30 ML VIAL FS SCH (19:40)
[2023-12-16] MEDS: Methylcellulose 500 MG TAB PO SCH (20:39)
[2023-12-16] MEDS ORDERED: Apixaban 5 MG TAB PO SCH (21:00)
[2023-12-17 04:27] LABS: Hemoglobin 7.4 g/dL (14.0-18.0); Manual Diff?? YES; Mean Corpuscular HGB CONC 30.8 g/dL (32.0-36.0); Mean Corpuscular Hemoglobin 30.5 pg (27.0-31.0); Mean Corpuscular Volume 98.8 fl (78.0-98.0); Platelet Count 112 10x3/uL (130-400); RBC Distribution Width 18.6 % (11.5-14.5); Red Blood Cell (RBC) Count 2.43 mill/uL (4.70-6.10); White Blood Cell (WBC) Count 2.7 10x3/uL (4.8-10.8)
[2023-12-17 04:32] LABS: Delete Auto Diff?? YES
[2023-12-17 05:19] LABS: Anisocytosis SLIGHT = 6-15 cells HPF (0-5); Band 4 % (5-11); CellaVision Operator ID lab.abc; Eosinophils 4 % (0-10); Hypochromia SLIGHT = 6-15 cells HPF (0-5); Large Platelets 20.8 % (0-5); Lymphocytes 4 % (21-51); Monocytes 15 % (0-10); Neutrophil 72 % (42-75); Platelet Adequacy Comment Platelets Decreased; Polychromasia SLIGHT = 2-3 cells HPF (0-2); Smudge Cells 20.8 %; Total Cell Count 53
[2023-12-17 05:56] LABS: Phosphorus 2.7 mg/dL (2.3-4.7)
[2023-12-17 06:19] LABS: Anion Gap 15 mmol/L (10-20); BUN (Urea Nitrogen) 15 mg/dL (8.4-25.7); Calc. Creatinine Clearance 90 mL/min (70-130); Carbon Dioxide 22 mmol/L (23-31); Chloride 110 mmol/L (98-107); Estimated GFR 94; Glucose 106 mg/dL (83-110); Magnesium 2.5 mg/dL (1.6-2.6); Potassium 4.8 mmol/L (3.5-5.1); Sodium 142 mmol/L (136-145)
[2023-12-17] MEDS: Apixaban 5 MG TAB PO SCH (08:16)
[2023-12-17] MEDS: Potassium Chloride 20 MEQ TAB PO SCH (08:17)
[2023-12-17] MEDS ORDERED: Sodium Bicarbonate 2.5 MEQ/5 ML SDV ONE (09:18)
[2023-12-17] MEDS ORDERED: Lidocaine 1% PF 5 ML VIAL ONE (09:18)
[2023-12-17] MEDS: Morphine 2 MG/ML VIAL SLOW IVP SCH (09:50)
[2023-12-17] MEDS ORDERED: Ibuprofen 200 MG TAB PO PRN (12:37)
[2023-12-17 13:06] VITALS: BMI 24.2
[2023-12-17] MEDS: Acetaminophen 500 MG TAB PO SCH (13:38)
[2023-12-18 08:24] VITALS: BP 122/68; TEMP 97.4
[2023-12-18] MEDS ORDERED: Saccharomyces boulardii 250 MG CAP PO SCH (09:00)
== END 2023-12-18 11:38 | disposition home or self-care (01) | DRG 862 ==
LOC: ERS 12:47 → SURG B 18:06
PROVIDERS: ADMIT Surgery; ATTEND Family Medicine
PROC: 0W9G30Z Drainage of Peritoneal Cavity with Drainage Device, Percutaneous Approach (ICD-10-PCS; principal; 2023-12-11)
PROC: 30233J1 Transfusion of Nonautologous Serum Albumin into Peripheral Vein, Percutaneous Approach (ICD-10-PCS; 2023-12-11)
PROC: 02HV33Z Insertion of Infusion Device into Superior Vena Cava, Percutaneous Approach (ICD-10-PCS; 2023-12-17)
PROC: B5181ZA Fluoroscopy of Superior Vena Cava using Low Osmolar Contrast, Guidance (ICD-10-PCS; 2023-12-17)
PROC: B548ZZA Ultrasonography of Superior Vena Cava, Guidance (ICD-10-PCS; 2023-12-17)
DX: T81.43XA Infection following a procedure, organ and space surgical site, initial encounter (principal); A41.51 Sepsis due to Escherichia coli [E. coli]; I50.33 Acute on chronic diastolic (congestive) heart failure; K65.1 Peritoneal abscess; C90.00 Multiple myeloma not having achieved remission; K56.7 Ileus, unspecified; L02.211 Cutaneous abscess of abdominal wall; J98.11 Atelectasis; D84.9 Immunodeficiency, unspecified; D62 Acute posthemorrhagic anemia; Z16.20 Resistance to unspecified antibiotic; I13.0 Hypertensive heart and chronic kidney disease with heart failure and stage 1 through stage 4 chronic kidney disease, or unspecified chronic kidney disease; E78.00 Pure hypercholesterolemia, unspecified; N18.9 Chronic kidney disease, unspecified; E78.5 Hyperlipidemia, unspecified; I48.0 Paroxysmal atrial fibrillation; E11.22 Type 2 diabetes mellitus with diabetic chronic kidney disease; Y83.8 Other surgical procedures as the cause of abnormal reaction of the patient, or of later complication, without mention of misadventure at the time of the procedure; Z98.890 Other specified postprocedural states; Z88.8 Allergy status to other drugs, medicaments and biological substances; Z85.46 Personal history of malignant neoplasm of prostate; Z95.0 Presence of cardiac pacemaker
CPT/HCPCS: 36415; 36416; 36569; 43752; 49020; 71045; 74177; 74250; 77012; 80048; 80053; 80162; 83605; 83735; 83880; 84100; 84145; 84443; 84484; 85025; 86140; 86850; 86900; 86901; 87040; 87070; 87077; 87149; 87186; 87205; 94760; 96374; 97139; C1751; C9113; J1650; J1885; J1940; J2185; J2272; J2405; J2543; J3010; J3370-JW; J3475; J3480; J3490; P9047; Q9963; Q9967; S0028

== ENCOUNTER 2024-01-14 20:25 | Inpatient (IN) | payer BC, MEDICARE ==
[2024-01-14] MEDS ORDERED: Ondansetron PF 4 MG/2 ML Vial ONE (21:00)
[2024-01-14 21:14] LABS: Hematocrit 32.3 % (42.0-52.0); Hemoglobin 10.4 g/dL (14.0-18.0); Mean Corpuscular HGB CONC 32.2 g/dL (32.0-36.0); Mean Corpuscular Hemoglobin 32.7 pg (27.0-31.0); Mean Corpuscular Volume 101.6 fL (78.0-98.0); Platelet Count 145 10x3/uL (130-400); RBC Distribution Width 22.5 % (11.5-14.5); Red Blood Cell (RBC) Count 3.18 mill/uL (4.70-6.10)
[2024-01-14] MEDS ORDERED: fentaNYL 50 mcg/mL 1 mL Vial ONE (21:20)
[2024-01-14 21:35] LABS: Anisocytosis SLIGHT = 6-15 cells HPF (0-5); Band 30 % (5-11); Hypochromia SLIGHT = 6-15 cells HPF (0-5); Large Platelets 11.1 % (0-5); Lymphocytes 4 % (21-51); Macrocytosis SLIGHT = 6-15 cells HPF (0-5); Monocytes 7 % (0-10); Neutrophil 59 % (42-75); Platelet Adequacy Comment Platelets Normal; Polychromasia MARKED = >4 cells HPF (0-2); Smudge Cells 11.1 %
[2024-01-14 21:56] LABS: ALT (SGPT) 12 U/L (8-55); AST (SGOT) 25 U/L (5-34); Alkaline Phosphatase 126 U/L (40-110); Anion Gap 15 mmol/L (10-20); BUN (Urea Nitrogen) 25 mg/dL (8.4-25.7); Bilirubin, Total 0.7 mg/dL (0.2-1.2); Calc. Creatinine Clearance 0 mL/min (70-130); Calcium 8.1 mg/dL (7.8-10.44); Carbon Dioxide 24 mmol/L (23-31); Chloride 103 mmol/L (98-107); Estimated GFR 73; Globulin 3.2 g/dL (2.4-3.5); Glucose 113 mg/dL (83-110); Lipase 10 U/L (8-78); Magnesium 1.3 mg/dL (1.6-2.6); Protein, Total 6.2 g/dL (5.8-8.1); Sodium 139 mmol/L (136-145)
[2024-01-14 22:11] LABS: INR-International Normal Ratio 1.1; Prothrombin Time 14.7 sec (12.0-14.7)
[2024-01-14 22:12] LABS: PTT 34.9 sec (22.9-36.1)
[2024-01-14 22:36] LABS: Influenza A by NAA Not Detected (NotDetected); Influenza B by NAA Not Detected (NotDetected); SARS-CoV-2 NAA Rapid Test Not Detected (NotDetected)
[2024-01-14 22:41] LABS: Troponin I 0.117 ng/mL (< 0.028)
[2024-01-14] MEDS ORDERED: Potassium Chloride 20 MEQ (100 mL) BAG ONE (22:54)
[2024-01-14] MEDS ORDERED: Magnesium 2 GM/50 ML BAG (IN WATER) ONE (22:54)
[2024-01-14] MEDS ORDERED: Sodium Chloride 0.9% 100 ML ONE (23:26)
[2024-01-14] MEDS ORDERED: cefTRIAXone (ROCEPHIN) 2 GM VIAL ONE (23:26)
[2024-01-15 00:38] LABS: Bacteria/HPF None Seen HPF (None Seen); Bilirubin Negative (Negative); Blood, Urine Negative (Negative); CAUTI Indications for Culture Dysuria,urgency,freq; Clarity Clear (Clear); Glucose, Urine (Dipstick) 150 mg/dL (Negative); Ketone, Urine Negative (Negative); Leukocyte Negative Leu/uL (Negative); Nitrite Negative (Negative); Protein, Urine (Dipstick) 70 mg/dL (Neg-Trace); RBC/HPF 0-3 HPF (0-3); Squamous Epithelial 0-3 HPF (0-3); Urobilinogen Normal mg/dL (Less than 2); pH, Urine 5.5 (5.0-9.0)
[2024-01-15 00:40] LABS: Urine Culture Reflex No No
[2024-01-15] MEDS ORDERED: Acetaminophen 325 MG TAB PO PRN (00:42)
[2024-01-15] MEDS ORDERED: Acetaminophen 650 MG Suppository PR PRN (00:42)
[2024-01-15 01:37] LABS: Lactic Acid 1.6 mmol/L (0.5-2.2)
[2024-01-15 01:45] LABS: Troponin I 0.104 ng/mL (< 0.028)
[2024-01-15 03:39] VITALS: BMI 21.5
[2024-01-15] MEDS ORDERED: Dextrose 5% in Water 1,000 ML IV PRN (04:30)
[2024-01-15] MEDS ORDERED: Dextrose 50% Abboject 50 ML SYRINGE SLOW IVP PRN (04:30)
[2024-01-15] MEDS ORDERED: HumaLOG 300 UNITS/3 ML VIAL SC PRN ×2 (04:30)
[2024-01-15] MEDS ORDERED: Glucagon 1 MG/ML KIT IM PRN (04:30)
[2024-01-15] MEDS ORDERED: Electrolyte Replacement Protocol FS SCH (04:45)
[2024-01-15 06:20] LABS: Magnesium 1.6 mg/dL (1.6-2.6)
[2024-01-15 06:25] LABS: Hematocrit 24.7 % (42.0-52.0); Mean Corpuscular HGB CONC 32.4 g/dL (32.0-36.0); Mean Corpuscular Hemoglobin 32.7 pg (27.0-31.0); Mean Corpuscular Volume 100.8 fL (78.0-98.0); Platelet Count 95 10x3/uL (130-400); RBC Distribution Width 22.2 % (11.5-14.5); Red Blood Cell (RBC) Count 2.45 mill/uL (4.70-6.10)
[2024-01-15 06:40] LABS: Anion Gap 12 mmol/L (10-20); BUN (Urea Nitrogen) 21 mg/dL (8.4-25.7); Calc. Creatinine Clearance 76 mL/min (70-130); Calcium 6.8 mg/dL (7.8-10.44); Carbon Dioxide 22 mmol/L (23-31); Chloride 109 mmol/L (98-107); Critical Call Chemistry NUR.TM8@0640; Estimated GFR 93; Glucose 90 mg/dL (83-110); Potassium 3.4 mmol/L (3.5-5.1); Sodium 140 mmol/L (136-145)
[2024-01-15 07:03] LABS: Anisocytosis SLIGHT = 6-15 cells HPF (0-5); Band 45 % (5-11); Eosinophils 1 % (0-10); Large Platelets 16.5 % (0-5); Lymphocytes 5 % (21-51); Macrocytosis SLIGHT = 6-15 cells HPF (0-5); Monocytes 11 % (0-10); Neutrophil 38 % (42-75); Platelet Adequacy Comment Platelets Decreased; Polychromasia SLIGHT = 2-3 cells HPF (0-2); Smudge Cells 14.6 %
[2024-01-15] MEDS: Magnesium 2 GM/50 ML(in water) 2 GM in Premix 1 BAG IVPB SCH (09:11)
[2024-01-15] MEDS: Potassium Chloride 20 MEQ TAB PO SCH (09:12)
[2024-01-15] MEDS: Vancomycin HCl 125 MG Capsule PO SCH (12:58)
[2024-01-15] MEDS: Acetaminophen 500 MG TAB PO SCH (14:41)
[2024-01-15] MEDS: Ondansetron ODT 4 MG TAB PO PRN (20:45)
[2024-01-15] MEDS: Calcium Carbonate 500 MG ChewTAB PO PRN (22:57)
[2024-01-16 05:20] LABS: Hematocrit 24.9 % (42.0-52.0); Hemoglobin 8.1 g/dL (14.0-18.0); Mean Corpuscular HGB CONC 32.5 g/dL (32.0-36.0); Mean Corpuscular Hemoglobin 33.2 pg (27.0-31.0); Platelet Count 122 10x3/uL (130-400); RBC Distribution Width 22.2 % (11.5-14.5); Red Blood Cell (RBC) Count 2.44 mill/uL (4.70-6.10)
[2024-01-16 05:53] LABS: Anisocytosis SLIGHT = 6-15 cells HPF (0-5); Band 21 % (5-11); Eosinophils 2 % (0-10); Large Platelets 29.3 % (0-5); Lymphocytes 4 % (21-51); Macrocytosis SLIGHT = 6-15 cells HPF (0-5); Monocytes 10 % (0-10); Neutrophil 64 % (42-75); Platelet Adequacy Comment Platelets Decreased; Smudge Cells 34.5 %
[2024-01-16 06:11] LABS: ALT (SGPT) 7 U/L (8-55); AST (SGOT) 18 U/L (5-34); Albumin 2.1 g/dL (3.4-4.8); Alkaline Phosphatase 87 U/L (40-110); Anion Gap 11 mmol/L (10-20); BUN (Urea Nitrogen) 21 mg/dL (8.4-25.7); Bilirubin, Total 0.4 mg/dL (0.2-1.2); Calc. Creatinine Clearance 79 mL/min (70-130); Calcium 6.7 mg/dL (7.8-10.44); Carbon Dioxide 22 mmol/L (23-31); Chloride 109 mmol/L (98-107); Estimated GFR 94; Globulin 2.3 g/dL (2.4-3.5); Glucose 68 mg/dL (83-110); Potassium 2.7 mmol/L (3.5-5.1); Protein, Total 4.4 g/dL (5.8-8.1); Sodium 139 mmol/L (136-145)
[2024-01-16] MEDS: Potassium Chloride 20 MEQ in Premix 1 BAG IVPB SCH ×2 (07:21→21:20)
[2024-01-16] MEDS: Sodium Chloride 0.9% 1,000 ML IV SCH (07:50)
[2024-01-16] MEDS: Magnesium 2 GM/50 ML(in water) 2 GM in Premix 1 BAG IVPB SCH (09:45)
[2024-01-16 14:13] LABS: Campy jejuni + coli by PCR Negative (Negative); STEC Shiga Toxin 1+2 Negative (Negative); Salmonella spp. by PCR POSITIVE (Negative); Shigella spp + EIEC by PCR Negative (Negative)
[2024-01-16] MEDS: Ondansetron PF 4 MG/2 ML Vial IVP PRN (17:18)
[2024-01-16 17:22] LABS: Anion Gap 9 mmol/L (10-20); BUN (Urea Nitrogen) 18 mg/dL (8.4-25.7); Calc. Creatinine Clearance 87 mL/min (70-130); Carbon Dioxide 22 mmol/L (23-31); Chloride 109 mmol/L (98-107); Estimated GFR 96; Glucose 99 mg/dL (83-110); Potassium 3.4 mmol/L (3.5-5.1); Sodium 137 mmol/L (136-145)
[2024-01-16 17:53] LABS: Potassium 3.4 mmol/L (3.5-5.1)
[2024-01-16 18:01] LABS: Calcium 6.8 mg/dL (7.8-10.44); Critical Call Chemistry NUR.LS21@1801
[2024-01-16] MEDS: Metoclopramide HCl 10 MG (2 mL) VIAL IVP SCH (21:54)
[2024-01-16] MEDS: Dextrose 5 %-0.45 % NaCl 1,000 ML IV SCH (21:55)
[2024-01-16] MEDS: Famotidine/PF 20 mg/2ml Vial SLOW IVP SCH (21:55)
[2024-01-17 05:14] LABS: Hematocrit 26.2 % (42.0-52.0); Hemoglobin 8.5 g/dL (14.0-18.0); Mean Corpuscular HGB CONC 32.4 g/dL (32.0-36.0); Mean Corpuscular Hemoglobin 32.1 pg (27.0-31.0); Mean Corpuscular Volume 98.9 fL (78.0-98.0); Platelet Count 122 10x3/uL (130-400); Red Blood Cell (RBC) Count 2.65 mill/uL (4.70-6.10)
[2024-01-17 05:30] LABS: ALT (SGPT) 8 U/L (8-55); AST (SGOT) 22 U/L (5-34); Albumin 2.1 g/dL (3.4-4.8); Alkaline Phosphatase 90 U/L (40-110); Anion Gap 11 mmol/L (10-20); BUN (Urea Nitrogen) 13 mg/dL (8.4-25.7); Bilirubin, Total 0.4 mg/dL (0.2-1.2); Calc. Creatinine Clearance 97 mL/min (70-130); Carbon Dioxide 20 mmol/L (23-31); Chloride 110 mmol/L (98-107); Estimated GFR 100; Globulin 2.3 g/dL (2.4-3.5); Glucose 79 mg/dL (83-110); Magnesium 1.9 mg/dL (1.6-2.6); Potassium 3.9 mmol/L (3.5-5.1); Protein, Total 4.4 g/dL (5.8-8.1); Sodium 137 mmol/L (136-145)
[2024-01-17 05:33] LABS: Calcium 6.7 mg/dL (7.8-10.44); Critical Call Chemistry NUR.SEG1@0532
[2024-01-17] MEDS: Magnesium 2 GM/50 ML(in water) 2 GM in Premix 1 BAG IVPB SCH (06:14)
[2024-01-17 06:28] LABS: Anisocytosis MODERATE=16-30 cells HPF (0-5); Band 25 % (5-11); Eosinophils 1 % (0-10); Large Platelets 20.4 % (0-5); Lymphocytes 8 % (21-51); Macrocytosis MODERATE=16-30 cells HPF (0-5); Monocytes 12 % (0-10); Neutrophil 54 % (42-75); Ovalocytes SLIGHT = 2-5 cells HPF (0-1); Platelet Adequacy Comment Platelets Decreased; Polychromasia SLIGHT = 2-3 cells HPF (0-2); Reactive Lymphocytes 1 % (0-10); Smudge Cells 46.2 %; Tear Drops SLIGHT = 2-5 cells HPF (0-1)
[2024-01-17] MEDS ORDERED: Morphine 2 MG/ML VIAL SLOW IVP PRN (07:42)
[2024-01-17] MEDS: Saccharomyces boulardii 250 MG CAP PO SCH (08:54)
[2024-01-17] MEDS: Calcium Carbonate 500 MG ChewTAB PO SCH (11:52)
[2024-01-17 13:15] VITALS: BP 123/70; TEMP 98.1
[2024-01-17] MEDS: LevoFLOXacin 500 MG TAB PO SCH (13:48)
[2024-01-18] MEDS ORDERED: Calcium Carbonate 500 MG ChewTAB PO SCH (09:00)
== END 2024-01-17 14:42 | disposition home health service (06) | DRG 871 ==
LOC: ERS 20:25 → 2SW 01-15 03:03 → MSONC 01-16 11:55
PROVIDERS: ADMIT Student in an Organized Health Care Education/Training Program; ATTEND Family Medicine
DX: A02.1 Salmonella sepsis (principal); J18.9 Pneumonia, unspecified organism; C90.00 Multiple myeloma not having achieved remission; E87.20 Acidosis, unspecified; A02.0 Salmonella enteritis; D61.818 Other pancytopenia; I5A Non-ischemic myocardial injury (non-traumatic); I48.91 Unspecified atrial fibrillation; I10 Essential (primary) hypertension; E11.9 Type 2 diabetes mellitus without complications; E78.5 Hyperlipidemia, unspecified; E83.42 Hypomagnesemia; D52.9 Folate deficiency anemia, unspecified; E87.6 Hypokalemia; R77.8 Other specified abnormalities of plasma proteins; Z86.73 Personal history of transient ischemic attack (TIA), and cerebral infarction without residual deficits; Z98.890 Other specified postprocedural states; Z79.01 Long term (current) use of anticoagulants; Z95.0 Presence of cardiac pacemaker; Z79.899 Other long term (current) drug therapy; Z91.048 Other nonmedicinal substance allergy status
CPT/HCPCS: 36415; 36416; 71045; 74177; 80048; 80053; 81001; 83605; 83690; 83735; 83880; 84145; 84484; 85025; 85610; 85730; 87040; 87324; 87449; 87493; 87505; 93005; 96361; 96365; 96366; 96367; 96375; 97139; J0696; J2405; J2765; J3010; J3475; J3480; J3490; J7042; J7050; Q0162; Q9967; S0028

== ENCOUNTER 2024-03-17 08:00 | Outpatient (CLI) | payer BC, MEDICARE | END 2024-03-17 08:01 | LOC: MRI 08:00 | PROVIDERS: ATTEND Internal Medicine | DX: K86.9 Disease of pancreas, unspecified (principal); E27.8 Other specified disorders of adrenal gland; K86.2 Cyst of pancreas; D35.01 Benign neoplasm of right adrenal gland; K76.89 Other specified diseases of liver; N28.1 Cyst of kidney, acquired | CPT/HCPCS: 74183 ==

== ENCOUNTER 2024-04-18 19:19 | Inpatient (IN) | payer BC, MEDICARE ==
[2024-04-18] MEDS ORDERED: HYDROmorphone 0.5 MG/0.5 ML SYRINGE ONE (19:53)
[2024-04-18] MEDS ORDERED: Piperacillin/Tazobactam 4.5 GM VIAL ONE (19:53)
[2024-04-18] MEDS ORDERED: Sodium Chloride 0.9% 100 ML ONE (19:53)
[2024-04-18] MEDS ORDERED: Ondansetron PF 4 MG/2 ML Vial ONE ×2 (19:53→20:40)
[2024-04-18 20:02] LABS: Base Excess -16.2 mEq/L (-2.0 to +3.0); Calcium, Ionized (venous) 1.19 mmol/L (1.16-1.32); Chloride (VBG) 102 mmol/L (98-106); Hematocrit-VBG 33 % (42.0-52.0); Hemoglobin (Hb) 11.3 g/dL (12.6-17.4); Sodium 140 mmol/L (133-146)
[2024-04-18 20:04] LABS: pH (venous) 7.053 (7.32-7.43)
[2024-04-18 20:05] LABS: Actual Bicarbonate (HCO3v) 13.8 mEq/L (22-28)
[2024-04-18 20:16] LABS: #Basophils Less than 0.03 10x3/uL (0.0-0.2); #Eosinphils Less than 0.03 10x3/uL (0.0-0.7); %Basophils 0.4 % (0.0-1.0); %Eosinophils 0.8 % (0.0-10.0); %Lymphocytes 17.1 % (21.0-51.0); %Monocytes 2.4 % (0.0-10.0); %Neutrophils 74.9 % (42.0-75.0); Hematocrit 33.4 % (42.0-52.0); Hemoglobin 10.9 g/dL (14.0-18.0); Mean Corpuscular HGB CONC 32.6 g/dL (32.0-36.0); Mean Corpuscular Hemoglobin 33.3 pg (27.0-31.0); Mean Corpuscular Volume 102.1 fL (78.0-98.0); Mean Platelet Volume 13.5 fL (7.4-10.4); Platelet Count 91 10x3/uL (130-400); Red Blood Cell (RBC) Count 3.27 mill/uL (4.70-6.10)
[2024-04-18 20:38] LABS: ALT (SGPT) 8 U/L (8-55); AST (SGOT) 20 U/L (5-34); Albumin 2.8 g/dL (3.4-4.8); Alkaline Phosphatase 73 U/L (40-110); Anion Gap 25 mmol/L (10-20); BUN (Urea Nitrogen) 44 mg/dL (8.4-25.7); Bilirubin, Total 0.6 mg/dL (0.2-1.2); Calc. Creatinine Clearance 0 mL/min (70-130); Carbon Dioxide 13 mmol/L (23-31); Chloride 106 mmol/L (98-107); Estimated GFR 38; Globulin 3.2 g/dL (2.4-3.5); Glucose 323 mg/dL (83-110); Lipase 111 U/L (8-78); Potassium 3.8 mmol/L (3.5-5.1); Sodium 140 mmol/L (136-145)
[2024-04-18] MEDS ORDERED: NOREPINEPHRINE 8 MG/250 ML-D5W 250 ML ONE (20:40)
[2024-04-18 20:42] LABS: Troponin I 0.041 ng/mL (< 0.028)
[2024-04-18] MEDS ORDERED: Sodium Bicarb 50 MEQ/50 ML Abboject 8.4% SYRINGE ONE ×2 (21:37→23:29)
[2024-04-18] MEDS ORDERED: Amiodarone 150 MG/3 ML VIAL ONE (21:37)
[2024-04-18] MEDS ORDERED: Digoxin 0.5 MG/2 ML AMP ONE (21:44)
[2024-04-18] MEDS ORDERED: Ondansetron PF 4 MG/2 ML Vial IVP PRN (21:51)
[2024-04-18] MEDS ORDERED: Morphine 2 MG/ML VIAL SLOW IVP PRN (21:51)
[2024-04-18] MEDS ORDERED: dilTIAZem 125 MG/25 ML SDV ONE (21:56)
[2024-04-18] MEDS ORDERED: dilTIAZem 125 MG in Sodium Chloride 0.9% 100 ML IVPB SCH (22:00)
[2024-04-18] MEDS ORDERED: Vasopressin 20 UNITS/ML VIAL ONE ×2 (22:06→22:14)
[2024-04-18] MEDS ORDERED: EPINEPHrine 1 MG/ML VIAL ONE (22:07)
[2024-04-18] MEDS ORDERED: Norepinephrine 4 MG/4 ML VIAL ONE (22:07)
[2024-04-18] MEDS ORDERED: Amiodarone 450 MG, Admixture Fee 1 EACH in Dextrose 5% in Water 250 ML IVPB SCH (22:30)
[2024-04-18] MEDS ORDERED: SUCCINYLCHOLINE/SOD CL,ISO/PF 200 MG/10 ML SYRINGE FS ONE (23:04)
[2024-04-18] MEDS ORDERED: Rocuronium Bromide 10 MG/ML (10ML VIAL) ONE (23:04)
[2024-04-18] MEDS ORDERED: fentaNYL PF 100 MCG/2 ML SYRINGE ONE (23:15)
[2024-04-18] MEDS ORDERED: Albumin 5% 500 ML ONE (23:30)
[2024-04-19] MEDS ORDERED: FENTANYL 500 MCG/10 ML VIAL 2,000 MCG in Sodium Chloride 0.9% 60 ML IV PRN (00:27)
[2024-04-19] MEDS ORDERED: Propofol 1,000 MG/100 ML VIAL IV PRN (00:27)
[2024-04-19] MEDS ORDERED: Dextrose 5% in Water 1,000 ML IV PRN (00:28)
[2024-04-19] MEDS ORDERED: Glucagon 1 MG/ML KIT IM PRN (00:28)
[2024-04-19] MEDS: Lactated Ringer's 1,000 ML IV SCH ×2 (00:45→03:29)
[2024-04-19 00:55] LABS: Actual Bicarbonate (HCO3a) 18.2 mEq/L (22-28); Base Excess (BEa) -7.3 mEq/L (-2.0 to +3.0); CO2 Tension 36.3 mmHg (35.0-45.0); Calcium, Ionized (arterial) 1.03 mmol/L (1.12-1.30); Carboxyhemoglobin (COHb) 0.1 gm% (0.0-3.0); Hematocrit-ABG 26 % (42.0-52.0); O2 Tension (PaO2), arterial 202.3 mmHg (> 70.0); pH, Arterial 7.317 (7.35-7.45)
[2024-04-19 00:57] LABS: Potassium - ABG Lab 2.56 mmol/L (3.70-5.30)
[2024-04-19 00:58] LABS: ALV-art Gradient 180.125 mmHg (0-20); Puncture Site Arterial Line
[2024-04-19] MEDS ORDERED: Ventilator Sedation Protocol 1 EACH FS SCH (01:00)
[2024-04-19] MEDS ORDERED: DISCONTINUE PREVIOUS NARCOTIC PAIN MEDICATIONS AND BENZODIAZEPINES FS SCH (01:00)
[2024-04-19] MEDS: Potassium Chloride 20 MEQ in Premix 1 BAG IVPB SCH ×2 (01:00→03:46)
[2024-04-19] MEDS ORDERED: Propofol BOLUS 1,000 MG/100 ML VIAL IV PRN (01:00)
[2024-04-19] MEDS ORDERED: Lorazepam 2 MG/ML VIAL SLOW IVP PRN (01:00)
[2024-04-19] MEDS ORDERED: Fentanyl BOLUS 250 ML IVPB PRN (01:00)
[2024-04-19] MEDS: Sodium Chloride 0.9% 1,000 ML IV SCH (01:10)
[2024-04-19] MEDS: Potassium Chloride 40 MEQ in Premix 1 BAG IVPB SCH ×3 (01:15→15:51)
[2024-04-19 01:18] VITALS: BMI 20.1
[2024-04-19] MEDS: Digoxin 0.5 MG/2 ML AMP SLOW IVP SCH ×2 (01:25→08:54)
[2024-04-19] MEDS: Albumin 25% 25 GM (100 mL) BOT IVPB SCH ×2 (01:30→03:43)
[2024-04-19] MEDS ORDERED: Phenylephrine 40 MG in Sodium Chloride 0.9% 250 ML 250 ML IVPB SCH (01:30)
[2024-04-19] MEDS: PROTHROMBIN COMPLEX CONCENTRATE 1000 UNIT IV SCH ×2 (01:31→04:22)
[2024-04-19] MEDS: [UNRECOGNIZED DRUG - OTHER] IV SCH ×2 (01:31→04:22)
[2024-04-19] MEDS: Promethazine HCl 25 MG in Sodium Chloride 0.9% 50 ML IVPB SCH (01:31)
[2024-04-19] MEDS: Digoxin 0.5 MG/2 ML AMP ONE (01:34)
[2024-04-19] MEDS: Hydrocortisone Sod Succ/PF 100 mg/2 ml Vial IVP SCH ×2 (02:47→07:52)
[2024-04-19] MEDS: Sodium Bicarb 50 mEq/50 ML VIAL IVP SCH (03:03)
[2024-04-19] MEDS: Calcium Chloride 1 GM/10 ML Abboject SYRINGE ONE (03:06)
[2024-04-19] MEDS: Phenylephrine 40 MG/NS 250 ML 40 MG in Premix 1 BAG IVPB SCH (03:07)
[2024-04-19 03:15] LABS: Lactic Acid 8.9 mmol/L (0.5-2.2)
[2024-04-19 03:15] LABS: Actual Bicarbonate (HCO3a) 21.3 mEq/L (22-28); Base Excess (BEa) -4.5 mEq/L (-2.0 to +3.0); CO2 Tension 42.5 mmHg (35.0-45.0); Calcium, Ionized (arterial) 1.15 mmol/L (1.12-1.30); Carboxyhemoglobin (COHb) 0.1 gm% (0.0-3.0); Hematocrit-ABG 27 % (42.0-52.0); Hemoglobin (Hb) 9.1 g/dL (14.0-18.0); O2 Tension (PaO2), arterial 109.8 mmHg (> 70.0); Potassium - ABG Lab 3.01 mmol/L (3.70-5.30); pH, Arterial 7.318 (7.35-7.45)
[2024-04-19 03:16] LABS: Puncture Site Arterial Line
[2024-04-19 03:17] LABS: ALV-art Gradient 122.275 mmHg (0-20)
[2024-04-19 03:17] LABS: ALT (SGPT) 6 U/L (8-55); AST (SGOT) 13 U/L (5-34); Alkaline Phosphatase 37 U/L (40-110); Anion Gap 22 mmol/L (10-20); BUN (Urea Nitrogen) 37 mg/dL (8.4-25.7); Bilirubin, Total 0.9 mg/dL (0.2-1.2); Calc. Creatinine Clearance 46 mL/min (70-130); Calcium 6.5 mg/dL (7.8-10.44); Carbon Dioxide 14 mmol/L (23-31); Chloride 113 mmol/L (98-107); Estimated GFR 56; Globulin 1.4 g/dL (2.4-3.5); Glucose 230 mg/dL (83-110); Potassium 2.5 mmol/L (3.5-5.1); Protein, Total 3.4 g/dL (5.8-8.1); Sodium 146 mmol/L (136-145)
[2024-04-19] MEDS: Lactated Ringer's 500 ML IV SCH ×2 (03:29→10:54)
[2024-04-19] MEDS: Piperacillin/Tazobactam 3.375 GM in Sodium Chloride 0.9% 100 ML IVPB SCH (03:29)
[2024-04-19 03:33] LABS: Hematocrit 25.4 % (42.0-52.0); Hemoglobin 8.6 g/dL (14.0-18.0); Mean Corpuscular HGB CONC 33.9 g/dL (32.0-36.0); Mean Corpuscular Hemoglobin 30.6 pg (27.0-31.0); Mean Corpuscular Volume 90.4 fL (78.0-98.0); Platelet Count 62 10x3/uL (130-400); RBC Distribution Width 17.9 % (11.5-14.5); Red Blood Cell (RBC) Count 2.81 mill/uL (4.70-6.10)
[2024-04-19 03:41] LABS: INR-International Normal Ratio 2.1; Prothrombin Time 23.3 sec (12.0-14.7)
[2024-04-19 03:42] LABS: PTT 36.4 sec (22.9-36.1)
[2024-04-19 03:56] LABS: Magnesium 1.4 mg/dL (1.6-2.6)
[2024-04-19] MEDS: Magnesium Sulfate In Water 4 GM in Premix 1 BAG IVPB SCH (04:15)
[2024-04-19] MEDS: Magnesium Sulfate 4 GM in Sodium Chloride 0.9% 250 ML 250 ML IVPB SCH (04:22)
[2024-04-19 05:36] LABS: Anisocytosis SLIGHT = 6-15 cells HPF (0-5); Band 18 % (5-11); Lymphocytes 28 % (21-51); Metamyelocyte 12 % (0-0); Monocytes 6 % (0-10); Myelocyte 6 % (0-0); Neutrophil 30 % (42-75); Ovalocytes SLIGHT = 2-5 cells HPF (0-1); Platelet Adequacy Comment Platelets Decreased; Polychromasia SLIGHT = 2-3 cells HPF (0-2)
[2024-04-19] MEDS: Insulin Lispro 100 UNIT/ML 10 ML VIAL SC PRN (06:30)
[2024-04-19] MEDS: NOREPINEPHRINE 8 MG/250 ML-D5W 250 ML IVPB SCH (06:30)
[2024-04-19] MEDS: Ipratropium/Albuterol 3 ML NEB NEB SCH (07:18)
[2024-04-19] MEDS: Famotidine/PF 20 mg/2ml Vial SLOW IVP SCH (07:52)
[2024-04-19 08:10] LABS: Lactic Acid 11.8 mmol/L (0.5-2.2)
[2024-04-19 08:11] LABS: ALT (SGPT) 5 U/L (8-55); AST (SGOT) 12 U/L (5-34); Albumin 2.1 g/dL (3.4-4.8); Alkaline Phosphatase 29 U/L (40-110); Anion Gap 21 mmol/L (10-20); BUN (Urea Nitrogen) 37 mg/dL (8.4-25.7); Bilirubin, Total 1.2 mg/dL (0.2-1.2); Calc. Creatinine Clearance 46 mL/min (70-130); Calcium 6.3 mg/dL (7.8-10.44); Carbon Dioxide 30 mmol/L (23-31); Chloride 109 mmol/L (98-107); Estimated GFR 55; Globulin 1.1 g/dL (2.4-3.5); Glucose 263 mg/dL (83-110); Potassium 3.2 mmol/L (3.5-5.1); Protein, Total 3.2 g/dL (5.8-8.1); Sodium 157 mmol/L (136-145)
[2024-04-19] MEDS ORDERED: Insulin Regular, Human 100 UNIT/ML 10 ML VIAL SC PRN (08:40)
[2024-04-19] MEDS ORDERED: Electrolyte Replacement Protocol 1 EACH FS SCH (08:45)
[2024-04-19 09:56] LABS: Lactic Acid 10.5 mmol/L (0.5-2.2)
[2024-04-19] MEDS: Fentanyl CADD 100 ML IV SCH (09:56)
[2024-04-19 09:57] LABS: Anion Gap 22 mmol/L (10-20); BUN (Urea Nitrogen) 36 mg/dL (8.4-25.7); Calc. Creatinine Clearance 43 mL/min (70-130); Calcium 7.4 mg/dL (7.8-10.44); Carbon Dioxide 15 mmol/L (23-31); Chloride 112 mmol/L (98-107); Estimated GFR 51; Glucose 253 mg/dL (83-110); Potassium 3.7 mmol/L (3.5-5.1); Sodium 145 mmol/L (136-145)
[2024-04-19] MEDS: NACL IV SCH (10:14)
[2024-04-19] MEDS: VASOPRESSIN IV SCH (10:14)
[2024-04-19 11:00] LABS: Actual Bicarbonate (HCO3a) 17.6 mEq/L (22-28); Analyzer IN Cardio OR; Base Excess (BEa) -7.6 mEq/L (-2.0 to +3.0); CO2 Tension 34.4 mmHg (35.0-45.0); Calcium, Ionized (arterial) 1.02 mmol/L (1.12-1.30); Carboxyhemoglobin (COHb) 0.1 gm% (0.0-3.0); Hematocrit-ABG 31 % (42.0-52.0); Hemoglobin (Hb) 10.7 g/dL (14.0-18.0); O2 Tension (PaO2), arterial 146.8 mmHg (> 70.0); Potassium - ABG Lab 3.63 mmol/L (3.70-5.30); Puncture Site ALINE; pH, Arterial 7.326 (7.35-7.45)
[2024-04-19 11:42] LABS: Hematocrit 29.7 % (42.0-52.0); Hemoglobin 10.1 g/dL (14.0-18.0); Mean Corpuscular HGB CONC 33.6 g/dL (32.0-36.0); Mean Corpuscular Hemoglobin 31.3 pg (27.0-31.0); Mean Corpuscular Volume 93.2 fL (78.0-98.0); Mean Platelet Volume 12.4 fL (7.4-10.4); Platelet Count 61 10x3/uL (130-400); RBC Distribution Width 18.5 % (11.5-14.5); Red Blood Cell (RBC) Count 3.23 mill/uL (4.70-6.10)
[2024-04-19] MEDS: Calcium Chloride 1 GM/10 ML Abboject SYRINGE IVP SCH (12:13)
[2024-04-19 13:39] LABS: #Basophils Less than 0.03 10x3/uL (0.0-0.2); #Eosinphils Less than 0.03 10x3/uL (0.0-0.7); %Eosinophils 0.4 % (0.0-10.0); %Lymphocytes 6.4 % (21.0-51.0); %Monocytes 12.4 % (0.0-10.0); %Neutrophils 80.4 % (42.0-75.0); Hematocrit 29.5 % (42.0-52.0); Hemoglobin 9.9 g/dL (14.0-18.0); Mean Corpuscular HGB CONC 33.6 g/dL (32.0-36.0); Mean Corpuscular Hemoglobin 30.9 pg (27.0-31.0); Mean Corpuscular Volume 92.2 fL (78.0-98.0); Platelet Count 52 10x3/uL (130-400); RBC Distribution Width 18.6 % (11.5-14.5)
[2024-04-19 13:58] LABS: Anion Gap 19 mmol/L (10-20); BUN (Urea Nitrogen) 36 mg/dL (8.4-25.7); Calc. Creatinine Clearance 46 mL/min (70-130); Calcium 8.2 mg/dL (7.8-10.44); Carbon Dioxide 15 mmol/L (23-31); Chloride 117 mmol/L (98-107); Estimated GFR 55; Glucose 186 mg/dL (83-110); Magnesium 2.3 mg/dL (1.6-2.6); Potassium 3.5 mmol/L (3.5-5.1); Sodium 147 mmol/L (136-145)
[2024-04-19] MEDS: Morphine 2 MG/ML VIAL SLOW IVP PRN (14:39)
[2024-04-19 16:52] LABS: Anion Gap 19 mmol/L (10-20); BUN (Urea Nitrogen) 37 mg/dL (8.4-25.7); Calc. Creatinine Clearance 49 mL/min (70-130); Calcium 7.6 mg/dL (7.8-10.44); Carbon Dioxide 15 mmol/L (23-31); Chloride 116 mmol/L (98-107); Estimated GFR 59; Glucose 160 mg/dL (83-110); Sodium 146 mmol/L (136-145)
[2024-04-19 19:09] LABS: #Basophils Less than 0.03 10x3/uL (0.0-0.2); #Eosinphils Less than 0.03 10x3/uL (0.0-0.7); %Basophils 0.3 % (0.0-1.0); %Eosinophils 0.6 % (0.0-10.0); %Lymphocytes 2.5 % (21.0-51.0); %Monocytes 10.9 % (0.0-10.0); %Neutrophils 29.8 % (42.0-75.0); Hematocrit 27.3 % (42.0-52.0); Hemoglobin 9.2 g/dL (14.0-18.0); Mean Corpuscular HGB CONC 33.7 g/dL (32.0-36.0); Mean Corpuscular Hemoglobin 31.7 pg (27.0-31.0); Mean Corpuscular Volume 94.1 fL (78.0-98.0); Platelet Count 37 10x3/uL (130-400); RBC Distribution Width 19.3 % (11.5-14.5)
[2024-04-19 19:29] LABS: Lactic Acid 9.2 mmol/L (0.5-2.2)
[2024-04-19 19:47] LABS: ALT (SGPT) 6 U/L (8-55); AST (SGOT) 21 U/L (5-34); Albumin 2.6 g/dL (3.4-4.8); Alkaline Phosphatase 24 U/L (40-110); Anion Gap 21 mmol/L (10-20); BUN (Urea Nitrogen) 38 mg/dL (8.4-25.7); Calc. Creatinine Clearance 52 mL/min (70-130); Calcium 7.5 mg/dL (7.8-10.44); Carbon Dioxide 11 mmol/L (23-31); Chloride 117 mmol/L (98-107); Estimated GFR 64; Globulin 1.1 g/dL (2.4-3.5); Glucose 136 mg/dL (83-110); Potassium 4.3 mmol/L (3.5-5.1); Protein, Total 3.7 g/dL (5.8-8.1); Sodium 145 mmol/L (136-145)
[2024-04-20 03:52] LABS: Hematocrit 23.5 % (42.0-52.0); Hemoglobin 8.1 g/dL (14.0-18.0); Mean Corpuscular HGB CONC 34.5 g/dL (32.0-36.0); Mean Corpuscular Hemoglobin 30.9 pg (27.0-31.0); Mean Corpuscular Volume 89.7 fL (78.0-98.0); Platelet Count 21 10x3/uL (130-400); RBC Distribution Width 19.3 % (11.5-14.5); Red Blood Cell (RBC) Count 2.62 mill/uL (4.70-6.10)
[2024-04-20 04:10] LABS: ALT (SGPT) 6 U/L (8-55); AST (SGOT) 23 U/L (5-34); Albumin 2.6 g/dL (3.4-4.8); Alkaline Phosphatase 22 U/L (40-110); Anion Gap 21 mmol/L (10-20); BUN (Urea Nitrogen) 41 mg/dL (8.4-25.7); Bilirubin, Total 3.2 mg/dL (0.2-1.2); Calc. Creatinine Clearance 50 mL/min (70-130); Calcium 7.4 mg/dL (7.8-10.44); Carbon Dioxide 15 mmol/L (23-31); Chloride 113 mmol/L (98-107); Estimated GFR 61; Globulin 1.1 g/dL (2.4-3.5); Glucose 79 mg/dL (83-110); Magnesium 2.2 mg/dL (1.6-2.6); Potassium 4.4 mmol/L (3.5-5.1); Protein, Total 3.7 g/dL (5.8-8.1); Sodium 145 mmol/L (136-145)
[2024-04-20 04:21] LABS: Lactic Acid 9.3 mmol/L (0.5-2.2)
[2024-04-20 04:46] LABS: Anisocytosis SLIGHT = 6-15 cells HPF (0-5); Band 29 % (5-11); Burr Cells MODERATE= 6-15 cells HPF (0-1); Dohle Bodies SLIGHT; Eosinophils 1 % (0-10); Large Platelets 5.9 % (0-5); Lymphocytes 4 % (21-51); Metamyelocyte 38 % (0-0); Monocytes 7 % (0-10); Myelocyte 4 % (0-0); Neutrophil 15 % (42-75); Nucleated RBC (Manual Ct) 1 % (0); Platelet Adequacy Comment Significant Decrease; Polychromasia SLIGHT = 2-3 cells HPF (0-2); Reflex for Review?? YES; Smudge Cells 0.7 %; Toxic Granulation SLIGHT; Vacuoles SLIGHT
[2024-04-20] MEDS: Calcium Chloride 13.6 MEQ in Sodium Chloride 0.9% 100 ML IVPB SCH (05:03)
[2024-04-20] MEDS: Sodium Bicarb 50 mEq/50 ML VIAL IVP SCH (05:03)
[2024-04-20] MEDS: Dextrose 50% Abboject 50 ML SYRINGE SLOW IVP PRN (05:48)
[2024-04-20 06:31] LABS: Digoxin 2.29 ng/mL (0.8-2.0)
[2024-04-20 08:49] LABS: Lactic Acid 10.7 mmol/L (0.5-2.2)
[2024-04-20] MEDS ORDERED: Digoxin 0.5 MG/2 ML AMP SLOW IVP SCH (09:00)
[2024-04-20] MEDS: Sodium Bicarb 50 MEQ/50 ML Abboject 8.4% SYRINGE IVP SCH (09:27)
[2024-04-20] MEDS: Vancomycin (BATCH) 2 GM in Premix 1 BAG IVPB SCH (10:14)
[2024-04-20] MEDS: dilTIAZem 25 MG/5 ML VIAL SLOW IVP SCH (11:00)
[2024-04-20] MEDS: dilTIAZem 125 MG in Sodium Chloride 0.9% 100 ML IVPB SCH (11:11)
[2024-04-20] MEDS: Sodium Bicarbonate 150 MEQ in Dextrose 5% in Water 1,000 ML IV SCH (11:51)
[2024-04-20 12:16] LABS: Hematocrit 25.1 % (42.0-52.0); Hemoglobin 8.8 g/dL (14.0-18.0); Mean Corpuscular HGB CONC 35.1 g/dL (32.0-36.0); Mean Corpuscular Hemoglobin 31.7 pg (27.0-31.0); Mean Corpuscular Volume 90.3 fL (78.0-98.0); Mean Platelet Volume 13.7 fL (7.4-10.4); Platelet Count 37 10x3/uL (130-400); RBC Distribution Width 19.1 % (11.5-14.5); Red Blood Cell (RBC) Count 2.78 mill/uL (4.70-6.10)
[2024-04-20 12:48] LABS: #Basophils 0.04 10x3/uL (0.0-0.2); #Eosinphils Less than 0.03 10x3/uL (0.0-0.7); %Basophils 0.7 % (0.0-1.0); %Eosinophils 0.2 % (0.0-10.0); %Lymphocytes 1.5 % (21.0-51.0); %Monocytes 6.8 % (0.0-10.0); %Neutrophils 90.6 % (42.0-75.0)
[2024-04-20 14:04] VITALS: BMI 24.1
[2024-04-21 00:15] LABS: Mean Corpuscular HGB CONC 34.6 g/dL (32.0-36.0); Mean Corpuscular Hemoglobin 30.4 pg (27.0-31.0); Mean Corpuscular Volume 87.8 fL (78.0-98.0); Platelet Count 16 10x3/uL (130-400); RBC Distribution Width 19.2 % (11.5-14.5); Red Blood Cell (RBC) Count 2.96 mill/uL (4.70-6.10)
[2024-04-21 00:29] LABS: Band 31 % (5-11); Basophilic Stippling SLIGHT = 1-2 cells HPF (None Seen); Eosinophils 1 % (0-10); Lymphocytes 2 % (21-51); Metamyelocyte 4 % (0-0); Microcytosis SLIGHT = 6-15 cells HPF (0-5); Monocytes 4 % (0-10); Myelocyte 3 % (0-0); Neutrophil 55 % (42-75); Nucleated RBC (Manual Ct) 1 % (0); Ovalocytes SLIGHT = 2-5 cells HPF (0-1); Platelet Adequacy Comment Significant Decrease; Poikilocytosis SLIGHT = 6-15 cells HPF (0-5); Polychromasia SLIGHT = 2-3 cells HPF (0-2); Target Cells SLIGHT = 2-5 cells HPF (0-1); Toxic Granulation MODERATE; Vacuoles SLIGHT
[2024-04-21 01:13] LABS: Platelet Count 22 10x3/uL (130-400)
[2024-04-21 01:20] LABS: Fibrinogen 506 mg/dL (253-463)
[2024-04-21 01:21] LABS: INR-International Normal Ratio 2.2; Prothrombin Time 24.6 sec (12.0-14.7)
[2024-04-21 01:22] LABS: D-Dimer Test 2.18 mcg/mL (0.27-0.43)
[2024-04-21 04:31] LABS: Hematocrit 25.9 % (42.0-52.0); Mean Corpuscular HGB CONC 34.7 g/dL (32.0-36.0); Mean Corpuscular Hemoglobin 30.6 pg (27.0-31.0); Mean Corpuscular Volume 88.1 fL (78.0-98.0); Platelet Count 14 10x3/uL (130-400); RBC Distribution Width 19.2 % (11.5-14.5); Red Blood Cell (RBC) Count 2.94 mill/uL (4.70-6.10)
[2024-04-21 04:36] LABS: Vancomycin, Random 13.8 ug/mL (See Comment)
[2024-04-21 04:48] LABS: ALT (SGPT) 9 U/L (8-55); AST (SGOT) 43 U/L (5-34); Albumin 1.8 g/dL (3.4-4.8); Alkaline Phosphatase 30 U/L (40-110); Anion Gap 21 mmol/L (10-20); BUN (Urea Nitrogen) 43 mg/dL (8.4-25.7); Bilirubin, Total 4.8 mg/dL (0.2-1.2); Calc. Creatinine Clearance 69 mL/min (70-130); Calcium 6.8 mg/dL (7.8-10.44); Carbon Dioxide 20 mmol/L (23-31); Chloride 106 mmol/L (98-107); Estimated GFR 74; Globulin 1.4 g/dL (2.4-3.5); Glucose 104 mg/dL (83-110); Potassium 3.4 mmol/L (3.5-5.1); Protein, Total 3.2 g/dL (5.8-8.1); Sodium 144 mmol/L (136-145)
[2024-04-21 06:10] LABS: Band 35 % (5-11); Burr Cells MODERATE= 6-15 cells HPF (0-1); Large Platelets 2.4 % (0-5); Lymphocytes 1 % (21-51); Metamyelocyte 8 % (0-0); Monocytes 7 % (0-10); Neutrophil 49 % (42-75); Platelet Adequacy Comment Significant Decrease; Poikilocytosis SLIGHT = 6-15 cells HPF (0-5); Polychromasia SLIGHT = 2-3 cells HPF (0-2)
[2024-04-21] MEDS: Calcium Chloride 13.6 MEQ in Sodium Chloride 0.9% 100 ML IVPB SCH (07:38)
[2024-04-21 07:55] LABS: Actual Bicarbonate (HCO3a) 23.1 mEq/L (22-28); Base Excess (BEa) -3.6 mEq/L (-2.0 to +3.0); Calcium, Ionized (arterial) 0.93 mmol/L (1.12-1.30); Carboxyhemoglobin (COHb) 1.1 gm% (0.0-3.0); Hematocrit-ABG 26 % (42.0-52.0); Potassium - ABG Lab 3.53 mmol/L (3.70-5.30); pH, Arterial 7.283 (7.35-7.45)
[2024-04-21 08:01] LABS: O2 Tension (PaO2), arterial 44.7 mmHg (> 70.0)
[2024-04-21 08:02] LABS: Puncture Site Arterial Line
[2024-04-21] MEDS: Magnesium 2 GM/50 ML(in water) 2 GM in Premix 1 BAG IVPB SCH (08:20)
[2024-04-21] MEDS: Potassium Chloride 20 MEQ in Premix 1 BAG IVPB SCH (08:20)
[2024-04-21] MEDS: Famotidine/PF 20 mg/2ml Vial SLOW IVP SCH (08:21)
[2024-04-21] MEDS ORDERED: Vancomycin (BATCH) 1.5 GM in Premix 1 BAG IVPB SCH (10:00)
[2024-04-21 10:28] VITALS: BP 129/43
[2024-04-21 16:47] VITALS: TEMP 99.4
[2024-04-21] MEDS: Lorazepam 2 MG/ML VIAL SLOW IVP PRN (16:51)
[2024-04-21] MEDS: Morphine 4 MG/ML VIAL SLOW IVP PRN (16:51)
[2024-04-21] MEDS: Pantoprazole 40 MG VIAL IVP SCH (17:42)
[2024-04-24 13:01] LABS: Analyzer IN Cardio OR; Base Excess (BEa) -12.7 mEq/L (-2.0 to +3.0); CO2 Tension 32.4 mmHg (35.0-45.0); Calcium, Ionized (arterial) 1.09 mmol/L (1.12-1.30); Carboxyhemoglobin (COHb) 0.3 gm% (0.0-3.0); Hematocrit-ABG 31 % (42.0-52.0); Hemoglobin (Hb) 10.5 g/dL (14.0-18.0); O2 Tension (PaO2), arterial 414.1 mmHg (> 70.0); Potassium - ABG Lab 2.97 mmol/L (3.70-5.30)
[2024-04-24 13:02] LABS: Actual Bicarbonate (HCO3a) 13.6 mEq/L (22-28); Puncture Site Arterial Line
== END 2024-04-21 17:36 | disposition expired | DRG 853 ==
LOC: ERS 19:19 → SDC/OP 22:38 → CCU 22:38
PROVIDERS: ADMIT Specialist; ATTEND Specialist
PROC: 02HV33Z Insertion of Infusion Device into Superior Vena Cava, Percutaneous Approach (ICD-10-PCS; 2024-04-18)
PROC: 30233K1 Transfusion of Nonautologous Frozen Plasma into Peripheral Vein, Percutaneous Approach (ICD-10-PCS; 2024-04-18)
PROC: 30233N1 Transfusion of Nonautologous Red Blood Cells into Peripheral Vein, Percutaneous Approach (ICD-10-PCS; 2024-04-18)
PROC: 3E033XZ Introduction of Vasopressor into Peripheral Vein, Percutaneous Approach (ICD-10-PCS; 2024-04-18)
PROC: 3E03329 Introduction of Other Anti-infective into Peripheral Vein, Percutaneous Approach (ICD-10-PCS; 2024-04-18)
PROC: 30283B1 Transfusion of Nonautologous 4-Factor Prothrombin Complex Concentrate into Vein, Percutaneous Approach (ICD-10-PCS; 2024-04-18)
PROC: 30233J1 Transfusion of Nonautologous Serum Albumin into Peripheral Vein, Percutaneous Approach (ICD-10-PCS; 2024-04-18)
PROC: 0T9B70Z Drainage of Bladder with Drainage Device, Via Natural or Artificial Opening (ICD-10-PCS; principal; 2024-04-19)
PROC: 0DQ80ZZ Repair Small Intestine, Open Approach (ICD-10-PCS; 2024-04-19)
PROC: 0DN80ZZ Release Small Intestine, Open Approach (ICD-10-PCS; 2024-04-19)
PROC: 0W9G0ZZ Drainage of Peritoneal Cavity, Open Approach (ICD-10-PCS; 2024-04-19)
PROC: 30233R1 Transfusion of Nonautologous Platelets into Peripheral Vein, Percutaneous Approach (ICD-10-PCS; 2024-04-19)
PROC: 4A133R1 Monitoring of Arterial Saturation, Peripheral, Percutaneous Approach (ICD-10-PCS; 2024-04-19)
PROC: 5A1945Z Respiratory Ventilation, 24-96 Consecutive Hours (ICD-10-PCS; 2024-04-19)
DX: A41.81 Sepsis due to Enterococcus (principal); J96.00 Acute respiratory failure, unspecified whether with hypoxia or hypercapnia; Z66 Do not resuscitate; Z51.5 Encounter for palliative care; R65.21 Severe sepsis with septic shock; K63.1 Perforation of intestine (nontraumatic); K65.1 Peritoneal abscess; C90.00 Multiple myeloma not having achieved remission; I13.0 Hypertensive heart and chronic kidney disease with heart failure and stage 1 through stage 4 chronic kidney disease, or unspecified chronic kidney disease; N17.9 Acute kidney failure, unspecified; I50.32 Chronic diastolic (congestive) heart failure; K56.7 Ileus, unspecified; I48.19 Other persistent atrial fibrillation; D62 Acute posthemorrhagic anemia; E87.20 Acidosis, unspecified; N18.9 Chronic kidney disease, unspecified; E11.22 Type 2 diabetes mellitus with diabetic chronic kidney disease; D69.6 Thrombocytopenia, unspecified; K66.0 Peritoneal adhesions (postprocedural) (postinfection); R77.8 Other specified abnormalities of plasma proteins; E87.6 Hypokalemia; K66.8 Other specified disorders of peritoneum; Z98.890 Other specified postprocedural states; Z79.899 Other long term (current) drug therapy; Z85.46 Personal history of malignant neoplasm of prostate; Z95.0 Presence of cardiac pacemaker; E83.51 Hypocalcemia; E78.00 Pure hypercholesterolemia, unspecified; Z87.442 Personal history of urinary calculi
CPT/HCPCS: 36415; 36416; 36430; 71045; 74177; 80053; 80162; 80202; 82010; 82805; 83605; 83690; 83735; 83883; 84155; 84165; 84484; 85025; 85049; 85060; 85300; 85362; 85384; 85610; 85730; 86850; 86900; 86901; 87040; 87070; 87076; 87077; 87149; 87186; 87205; 93005; 94002; 94003; 94640; 94760; 97139; A4314; J0171; J0282; J1160; J1170; J1720; J1815; J2060; J2270; J2272; J2405; J2543; J2550; J3010; J3370; J3475; J3480; J3490; J7050; J7070; J7120; J7168; J7620; J7999; P9016; P9035; P9045; P9047; P9059; Q9967; S0028